=== PATIENT | female | born 1935 | race Caucasian/White ===

== ENCOUNTER → 2017-03-04 08:27 | Outpatient (CLI) | payer MEDICARE ==
[~2017-03-04] VITALS: Ht 162.6 cm; Wt 63.6 kg
--- NOTE | ~2017-03-04 | HEMODYNAMI ---
PATIENT:NATIVIDAD QUEZADA MEDICAL RECORD: [id number] : 35 LOCATION:[facility] ADMISSION DATE: 03/04/17 Generatedon:03/04/201712:31 Patient name: NATIVIDAD QUEZADA Patient #: [id number] SSN: : 1935 Date of study: 03/04/2017 Page: Of Hemodynamic Procedure Report Patient Data Patient Demographics Procedure consent was obtained First Name: NATIVIDAD Gender: Female Last Name: PILAR : 1935 Middle Initial: REYNA Age: 81 year(s) Patient #: [id number] Race: Unknown Additional ID: [id number] Contact details [address]: [address] [place] [address] rd State: [place] City: [place] Zip code: [address] Past Medical History Allergies Allergen Reaction Date Comments Reported Other allergy 03/04/2017 latex Admission Admission Data Admission Date: 03/04/2017 Admission Time: 8:27 Lab Results Lab Result Date: 03/04/2017 Lab Result Time: 9:10 Biochemistry Name Units Result Min Max BUN mg/dl 11 --(-*--)-- 7 18 CK-MB ng/ml 1.1 --(-*--)-- 0 3.6 Creatinine mg/dl 0.9 --(-*--)-- 0.6 1.3 Creatinine l 161 --(--*-)-- 21 215 Kinase Troponin l ng/ml 0.017 --(-*--)-- 0 0.06 CBC Name Units Result Min Max Hematocrit % 38.7 *-(----)-- 42 54 Hemoglobin g/dl 12.1 *-(----)-- 13.5 17.5 Procedure Procedure Types Cath Procedure Diagnostic Procedure LHC LH w/Coronaries PCI Procedure Coronary Stent Initial Miscellaneous Procedures Moderate Sedation up to 15 minutes Procedure Description Procedure Date Procedure Date: 03/04/2017 Procedure Start Time: 12:11 Procedure End Time: 12:30 Procedure Staff Name Function Pipe Adams MD Performing Physician Olivia Martinez RT Scrub Birgit Regan RN Nurse Darion Umanzor RN Political Scientist Andres Norman RT Monitor Procedure Data Cath Procedure Fluoroscopy Diagnostic fluoroscopy Total fluoroscopy Time: 3.6 time: 3.6 min min Diagnostic fluoroscopy Total fluoroscopy dose: 236 dose: 236 mGy mGy Contrast Material Contrast Material Type Amount (ml) Isovue 300 67 Entry Location Entry Primary Successful Side Size Upsize Upsize Entry Closure Krueger ccessful Closure Location (Fr) 1 (Fr) 2 (Fr) Remarks Device Remarks Radial Right 6 Fr Mechanical artery Short Compression Estimated blood loss: 10 ml Diagnostic catheters Device Type Used For End Catheter Placement Diagnostic Terumo 5Fr Procedure Hunter 110cm catheter Procedure Complications No complications Procedure Medications Medication Administration Route Dosage Oxygen NC 2 l/min Lidocaine 2% added to field 20 Heparin Flush Bag added to field 2 bags (1000units/500ml NS) 0.9% NaCl I.V. 100 ml/hr Benadryl I.V. 50 mg Versed I.V. 1 mg Fentanyl I.V. 50 mcg Radial Cocktail I.A. 1 syringe (Verapomil 2mg/Nitro 400mcg/Heparin 1500units) Heparin Bolus I.V. 4000 units Integrilin (Bolus I.V. 5.6 ml 2mg/ml) Plavix P.O. 600 mg Hemodynamics Rest HGB: 12.1 (g/dl) Heart Rate: 93 (bpm) Snapshots Pre Cath Intra NCS Post Cath Vital Signs Time Heart Resp SPO2 etCO2 [id number] NIBP (mmHg) Rhythm Pain Sedatio n Rate (ipm) (%) (mmHg) (mmHg) Status Level (bpm) 12:01:53 80 18 97 0 0 160/93(140) A-Fib 0 (11) 10(A) , No pain 12:06:21 104 16 97 0 0 158/108(138) A-Fib 0 (11) 10(A) , No pain 12:10:16 83 14 96 0 0 138/86(118) A-Fib 0 (11) 10(A) , No pain 12:14:06 73 15 96 0 0 116/78(95) A-Fib 0 (11) 9(A) , No pain 12:18:30 89 14 94 0 0 124/64(84) A-Fib 0 (11) 9(A) , No pain 12:22:24 87 15 94 0 0 117/72(92) NSR 0 (11) 9(A) , No pain 12:26:15 79 15 98 0 0 125/75(117) NSR 0 (11) 10(A) , No pain 12:30:08 98 10 99 0 0 131/73(107) NSR 0 (11) 10(A) , No pain Medications Time Medication Route Dose Verified Delivered Reason Note s Effectiveness by by 12:06:17 Oxygen NC 2 l/min Pipe Buffie used for Angie Regan RN procedure 12:06:25 Lidocaine 2% added 20ml Pipe Pipe for local to vial Angie Adams MD anesthetic field 12:06:31 Heparin Flush added 2 bags Pipe Betancur used for Bag to Angie Adams MD procedure (1000units/500ml field NS) 12:06:42 0.9% NaCl I.V. 100 Pipe Jeongie Per physician ml/hr Angie Regan RN 12:06:52 Benadryl I.V. 50 mg Pipe Genao used for Angie Regan RN procedure 12:09:21 Versed I.V. 1 mg Pipe Genao for sedation Angie Regan RN 12:09:27 Fentanyl I.V. 50 mcg Pipe Jeongie for sedation Angie Regan RN 12:13:19 Radial Cocktail I.A. 1 Pipe Betancur for (Verapomil syringe Angie Adams MD vasodilation 2mg/Nitro 400mcg/Heparin 1500units) 12:16:58 Heparin Bolus I.V. 4000 Pipe Genao for veri fied units Angie Regan RN anticoagulation with dr adams 12:18:26 Integrilin I.V. 5.6 ml Pipe Genao for Wast ed (Bolus 2mg/ml) Angie Regan RN antiplatelet 4.4 ml therapy of vial 12:26:39 Plavix P.O. 600 mg Pipe Genao for Angie Regan RN antiplatelet therapy Procedure Log Time Note 11:49:23 Darion Umanzor RN sent for patient. Start room use. 11:49:24 Time tracking: Regular hours 11:49:28 Plan of Care:Hemodynamics will remain stable., Cardiac rhythm will remain stable., Comfort level will be maintained., Respiratory function will remain adequate., Patient/ family verbilizes understanding of procedure., Procedure tolerated without complication., Recovers from procedure without complications.. 11:51:27 Patient received from Pre/Post Procedure Room to CCL 1 Alert and oriented. Tansferred to table in Supine position. 11:51:28 Warm blankets applied, and cassidy hugger turned on for patient comfort. 11:51:29 Correct patient and procedure confirmed by team. 11:51:32 Signed procedure consent form obtained from patient. 11:51:34 ECG and BP/O2 sat monitors applied to patient. 11:54:05 H&P Date Dictated: 02/07/2017 Within 30 days and on chart., H&P Addendum completed by physician on day of procedure. (MUST COMPLETE FOR ALL OUTPATIENTS). 11:54:07 Pre-procedure instructions explained to patient. 11:54:07 Pre-op teaching completed and patient verbalized understanding. 11:54:10 Family in waiting room. 11:54:12 Patient NPO since Midnight. 12:01:02 Vital chart was started 12:05:23 Baseline sample Acquired. 12:05:34 Rhythm: sinus rhythm 12:06:08 Full Disclosure recording started 12:06:17 Oxygen 2 l/min NC was administered by Birgit Regan RN; used for procedure; 12:06:25 Lidocaine 2% 20ml vial added to field was administered by Pipe Adams MD; for local anesthetic; 12:06:31 Heparin Flush Bag (1000units/500ml NS) 2 bags added to field was administered by Pipe Adams MD; used for procedure; 12:06:33 Patient allergic to Other allergylatex 12:06:37 Is the patient allergic to Iodine/contrast media? No. 12:06:39 Is patient on blood thinner?Yes 12:06:42 0.9% NaCl 100 ml/hr I.V. was administered by Birgit Regan RN; Per physician; 12:06:47 Patient diabetic? No. 12:06:50 Previous problem with sedation/anesthesia? No ? 12:06:51 Snore? Yes 12:06:52 Benadryl 50 mg I.V. was administered by Birgit Regan RN; used for procedure; 12:06:52 Sleep apnea? No 12:06:53 Deviated septum? Yes 12:06:54 Opens mouth fully? Yes 12:06:55 Sticks out tongue? Yes 12:06:56 Airway obstruction? No ] 12:06:58 Dentures? No ? 12:07:00 Modified Ernst's test Ulnar < 7 seconds 12:07:08 Patient pain scale 0/10 ?. 12:07:24 IV patent on arrival in left hand with 0.9% NaCl at [facility]. 12:08:46 Lab Result : BUN 11 mg/dl 12:08:46 Lab Result : Hemoglobin 12.1 g/dl 12:08:46 Lab Result : Creatinine 0.9 mg/dl 12:08:46 Lab Result : Hematocrit 38.7 % 12:08:48 Lab results completed and on chart. 12:08:51 Right Radial & Right Groin area was prepped with chlora-prep and draped in sterile fashion 12:08:52 Alarms reviewed by R. N. 12:08:52 Sharps counted by scrub and verified by R.N. 12:08:56 Use device set Radial Dx 12:08:57 MBrace Wrist Support opened to sterile field. 12:08:57 Acist Manifold opened to sterile field. 12:08:58 Acist Hand Control opened to sterile field. 12:08:59 Acist Syringe opened to sterile field. 12:08:59 Medline Cath Pack opened to sterile field. 12:08:59 Bag Decanter opened to sterile field. 12:09:00 Terumo 6Fr Slender Glidesheath opened to sterile field. 12:09:00 St Dao 260cm J .035 wire opened to sterile field. 12:09:01 Tegaderm 4 x 4 opened to sterile field. 12:09:05 Physician arrived 12:09:05 --------ALL STOP TIME OUT------ 12:09:06 Final Timeout: patient, procedure, and site verified with staff and physician. All members of the team are in agreement. 12:09:07 Right Radial & Right Groin site verified by team. 12:09:11 Physical assessment completed. ASA score P 2 - A patient with mild systemic disease as per Pipe Adams MD. 12:09:14 Sedation plan: IV Moderate Sedation Versed, Fentanyl 12:09:21 Versed 1 mg I.V. was administered by Birgit Regan RN; for sedation; 12:09:27 Fentanyl 50 mcg I.V. was administered by Birgit Regan RN; for sedation; 12:11:14 Procedure started. 12:11:20 Local anesthetic to right radial artery with Lidocaine 2% by Pipe Adams MD.INITIAL ACCESS ONLY 12:13:19 Radial Cocktail (Verapomil 2mg/Nitro 400mcg/Heparin 1500units) 1 syringe I.A. was administered by Pipe Adams MD; for vasodilation; 12:13:35 A 6 Fr Short sheath was inserted into the Right Radial artery 12:13:39 Zero performed for pressure channel P1 12:13:42 Zero performed for pressure channel P1 12:13:46 Zero performed for pressure channel P1 12:13:48 Zero performed for pressure channel P1 12:13:50 Zero performed for pressure channel P1 12:13:54 Zero performed for pressure channel P1 12:14:01 Zero performed for pressure channel P1 12:14:03 Zero performed for pressure channel P1 12:14:28 Zero performed for pressure channel P1 12:15:01 A Diagnostic Fl[employer] 5Fr Hunter 110cm catheter was advanced over the wire and used for Procedure. 12:15:05 LV gram done using CONNELL 12:15:06 Injector settings: Ml/sec: 5, Volume: 15, 12:15:12 EF : 55 % 12:15:14 LCA angiography performed. 12:15:52 RCA angiography performed. 12:16:00 Catheter removed. 12:16:07 Cordis 6FR XBLAD 3.5 guide catheter opened to sterile field. 12:16:08 Pisano Whisper J 300cm 0.014 guide wire opened to sterile field. 12:16:09 Neocase Software BasixCompak Inflation Kit opened to sterile field. 12:16:48 6 Fr xblad 3.5 guide catheter was inserted over the wire 12:16:58 Heparin Bolus 4000 units I.V. was administered by Birgit Regan RN; for anticoagulation; verified with dr adams 12:17:07 Study PCI Site: [place] mLAD has 90% stenosis. 12:17:23 Study PCI Site: [place] pLAD has 90% stenosis. 12:18:26 Integrilin (Bolus 2mg/ml) 5.6 ml I.V. was administered by Birgit Regan RN; for antiplatelet therapy; Wasted 4.4 ml of vial 12:18:35 whisper wire advanced. 12:18:45 Wire advanced across lesion. 12:20:35 Inflation Number: 1 A Biofreedom 2.5 x 18 stent (No Cost Implant) was prepped and advanced across the Mid LAD. The stent was deployed at 13 LORAINE for 0:10 (min:sec). 12:20:54 Inflation number: 1 The stent balloon was then re-inflated across the Prox LAD to 13 LORAINE for 0:10 (min:sec). 12:21:11 Stent catheter was removed intact over wire. 12:22:35 Inflation Number: 2 A Biofreedom 2.5 x 28 stent (No Cost Implant) was prepped and advanced across the Prox LAD. The stent was deployed at 13 LORAINE for 0:10 (min:sec). 12:22:45 Stent catheter was removed intact over wire. 12:22:45 Wire removed. 12:22:46 Guide catheter removed. 12::55 Terumo TR Band Standard opened to sterile field. 12:23:00 Sheath removed intact; hemostasis achieved with Mechanical Compression to the Right Radial artery. 12:23:30 Procedure ended.(Physican Out) 12:25:51 Fluoroscopy time 03.60 minutes. 12:25:55 Fluoroscopy dose: 236 mGy 12:25:55 Flurop Dose total: 236 12::58 Contrast amount:Isovue 300 67ml. 12:26:06 Sharps counted by scrub and verified by R.N. 12:26:09 TR band inflated with 10cc of air. 12:26:10 Insertion/operative site no bleeding no hematoma. 12::39 Plavix 600 mg P.O. was administered by Birgit Regan RN; for antiplatelet therapy; 12:28:21 Post right radial artery:stable, soft, clean and dry 12::23 Post Procedure Pulses reassessed and unchanged 12::28 Post-procedure physical assessment completed. ASA score P 2 - A patient with mild systemic disease as per Pipe Adams MD. 12:28:30 Post procedure rhythm: unchanged. 12:28:32 Estimated blood loss: 10 ml 12::33 Post procedure instruction explained to patient.Patient verbalizes understanding. 12::33 Patient needs reinforcement of post procedure teaching. 12:28:45 Procedure type changed to Cath procedure, Diagnostic procedure, LHC, LHC w/Coronaries, PCI procedure, Coronary Stent Initial, Miscellaneous Procedures, Moderate Sedation up to 15 minutes 12:29:56 Procedure and supply charges have been captured, reviewed, submitted and are correct. 12:29:58 Procedure Complication : No complications 12:30:00 Vital chart was stopped 12:30:01 See physician's report for complete and final results. 12:30:04 Report given to Pre/Post Procedure Room. 12:30:07 Patient transfered to Pre/Post Procedure Room with Stretcher. 12:30:08 Procedure ended. 12:30:08 Full Disclosure recording stopped 12:30:14 End room use (Document Last) 12:30:49 Lab Result : Creatinine Kinase 161 l 12:30:49 Lab Result : CK-MB 1.1 ng/ml 12:30:49 Lab Result : Troponin l 0.017 ng/ml Intervention Summary Intervention Notes Time ActionType Lesion and Equipment Action# Pressure Duration Attributes Used 12:20:35 Place stent Mid LAD Biofreedom 1 13 00:10 2.5 x 18 stent (No Cost Implant) 12:20:54 Reinflate Prox LAD Biofreedom 1 13 00:10 stent 2.5 x 18 balloon stent (No Cost Implant) 12:22:35 Place stent Prox LAD Biofreedom 2 13 00:10 2.5 x 28 stent (No Cost Implant) Device Usage Item Name Manufacture Quantity Catalog Hospital Part Current Minimal Lot# / Number Charge Number Stock Stock Serial# Code [facility] 1 140-0250-00 [id number] 78945 [id number] 5 Wrist Vascular Support Dynamics Acist Acist 1 35336 274228 746986 637954 5 Manifold Medical Systems Inc Acist Hand Acist 1 22488 822051 816660 572177 5 Control Medical Systems Inc Acist Acist 1 81116 894649 851046 870547 20 Syringe Medical Systems Inc Medline Cardinal 1 [id number] 087083 85521 247230 5 Cath Pack Health Bag Microtek 1 2001S 724173 51782 932897 5 DecPolar OLED Inc. Terumo 6Fr Terumo 1 [id number] 750051 357248 126290 [address] Dao St Dao 1 [id number] 592432 602806 891406 30 260cm J .035 wire Tegaderm 4 3M 1 1626W 267415 522523 953084 5 x 4 Diagnostic Terumo 1 40-9931 983205 169902 733256 5 Terumo 5Fr Hunter 110cm catheter Cordis 6FR Cardinal 1 [id number] 616662 631342 412389 10 XBLAD 3.5 Health guide catheter Pisano Pisano 1 [id number] 679434 788551 173832 5 Whisper J Vascular 300cm 0.014 guide wire Merit Merit 1 [id number] 257944 226449 858011 15 Procore Technologies Medical Inflation Kit Biofreedom Biosensors 1 [id number] 856477 913990 5 [id number] 2.5 x 18 [place] SA stent (No Cost Implant) Biofreedom Biosensors 1 [id number] 168057 793038 5 [id number] 2.5 x 28 [place] SA stent (No Cost Implant) Terumo TR Terumo 1 [id number] 365618 560156 795784 40 Band Standard Signature Audit Sherrill Stage Time Signature Unsigned Intra-Procedure 03/04/2017 Andres Norman 12:31:01 PM RT(R) Signatures Monitor : Andres Norman RT Signature : Date : Time : [id number] [place] [address]
[~2017-03-04 08:27] MED LIST: BIOTIN5 MG PO; CELEXA20 MG PO; COUMADIN5 MG PO; FERROUS SULFAT325 MG PO; KLOR-CON 1010 MEQ PO; LEVOXYL50 MCG PO; LISINOPRIL10 MG PO; LOPRESSOR25 MG PO; MAGNESIUM OXID250 MG PO; PLAVIX75 MG PO; TRAZODONE HCL50 MG PO; ULTRAM50 MG PO; ZOVIRAX200 MG PO; ZYRTEC10 MG PO
[2017-03-04 09:00] VITALS: BP 171/105; Ht 162.6 cm; Wt 63.6 kg
[2017-03-04 09:09] LABS: BASOPHILS 0.6 % (0-2); HEMATOCRIT 38.7 % (36.0-48.0); HEMOGLOBIN 12.1 g/dL (12-16); LYMPHOCYTES 29.1 % (15-50); MCH 27.6 pg (26.0-34.0); MCHC 31.3 g/dL (31.0-37.0); MCV 88.2 fL (80.0-100.0); MONOCYTES 10.3 % (2-11); PLATELET COUNT 181 10x3/uL (130-400); RBC 4.39 10x6/uL (4.00-5.40); RDW 21.1 % (11.5-14.5); WBC 4.8 10x3/uL (4.8-10.8)
[2017-03-04 09:36] LABS: INR 1.65 (0.85-1.17); PROTIME 19.5 SECONDS (11.6-15.0)
[2017-03-04 09:43] LABS: CALC OSMOLALITY 279 mosm/kg (275-300); CALCIUM 8.6 mg/dL (8.5-10.1); CARBON DIOXIDE 34.5 mmol/L (21.0-32.0); CHLORIDE - SERUM 102 mmol/L (98-107); CKMB 1.1 U/L (0.0-3.6); CREATINE KINASE 161 UL (21-215); CREATININE - SERUM 0.9 mg/dL (0.6-1.3); GLUCOSE 93 mg/dL (74-106); POTASSIUM - SERUM 3.6 mmol/L (3.5-5.1); SODIUM 141 mmol/L (136-145); UREA NITROGEN 11 mg/dL (7-18); eGFR NON AFRICAN AMERICAN 64 mL/min (90-120)
[2017-03-04 09:47] LABS: TROPONIN-I < 0.017 ng/mL (0.000-0.060)
--- NOTE | 2017-03-04 13:00 | NUR ---
1245 RECEIVED PT FROM ROULETTE DEALER. PT IS ALERT, DENIES ANY C/O PAIN OR NAUSEA. IV PATENT AND INFUSING PER ORDERS. TR BAND TO RIGHT WRIST IS CDI, NO BLEEDING OR HEMATOMA NOTED. WRIST IMMOBILIZER IN PLACE. FRIENDS AT BEDSIDE. PO FLUIDS AND SANDWICH SERVED. PT DENIES NEEDS AT THIS TIME. CALL LIGHT IN REACH.
--- NOTE | 2017-03-04 13:12 | NUR ---
1300 PT MADAN PO FLUIDS AND SANDWICH WIHT NO C/O NAUSEA. TR BAND CDI. VSS, FRIENDS AT BEDSIDE.
--- NOTE | 2017-03-04 13:31 | NUR ---
1330 PT DENIES ANY C/O. TR BAND CDI, NO BLEEDING OR HEMATOMA NOTED AT CATH SITE. FINGERS WARM, CAP REFILL IS BRISK, FRIENDS X 2 AT BEDSIDE. CALL LIGHT IN REACH.
--- NOTE | 2017-03-04 14:10 | NUR ---
1410 TR BAND CDI, NO BLEEDING OR HEMATOMA NOTED. FINGERS WARM TO TOUCH, CAP REFILL IS BRISK. FRIENDS X 2 AT BEDSIDE. PT DENIES NEEDS AT THIS TIME.
--- NOTE | 2017-03-04 14:47 | NUR ---
1445 PT SITTING UP IN BED, VISITING WITH FRIENDS. DENIES ANY C/O. TR BAND CDI, NO BLEEDING OR HEMATOMA NOTED AT SITE. VSS. POST PROCEDURE LAB HAS BEEN DRAWN PER ORDERS.
--- NOTE | 2017-03-04 15:47 | NUR ---
1330 TR BAND DEFLATION BEGUN, 3 CC OF AIR REMOVED WITH NO BLEEDING OR HEMATOMA. POST PROCEDURE EKG OBTAINED PER ORDERS. PT DENIES ANY C/O AT THIS TIME. FRIEND AT BEDSIDE.
--- NOTE | 2017-03-04 17:10 | NUR ---
1615 TR BAND REMOVED AND 2X2, TEGADERM PLACED TO SITE. NO BLEEDING OR HEMATOMA NOTED AT SITE. WRIST IMMOBILIZER IN PLACE. IV DC'D WITH CATH INTACT AND ASSISTED PT WITH DRESSING FOR DC TO HOME. DC INSTRUCTIONS REVIEWED AND PT VERBALIZES UNDERSTANDING. 1630 ASSISTED PT UP TO THE BATHROOM, PT VOIDED QS. STATES SHE THINKS THERE COULD HAVE BEEN BLOOD IN HER URINE, THINKS THERE WAS A PINK COLOR IN TOILET BUT FLUSHED TOILET AND NURSE UNABLE TO ASSESS. PT DENIES BLOOD TO TOILET TISSUE. PT INSTRUCTED TO CONTINUE TO MONITOR THIS AND IF CONTINUES TO CALL DR DUEÑAS'S ON-CALL NUMBER. PT VERBALIZES UNDERSTANDING. PT ESCORTED TO PRIVATE AUTO VIA BY STAFF. DR DUEÑAS NOTIFIED.
== END | disposition home or self-care (01) ==
LOC: D.CATH 08:27
PROVIDERS: Internal Medicine Interventional Cardiology
DX: I49.5 Sick sinus syndrome (principal); R06.02 Shortness of breath; I10 Essential (primary) hypertension; Z95.0 Presence of cardiac pacemaker; Z01.812 Encounter for preprocedural laboratory examination; Z00.6 Encounter for examination for normal comparison and control in clinical research program

== ENCOUNTER → 2017-12-23 08:29 | Outpatient (CLI) | payer MEDICARE ==
[2017-03-04 09:00] VITALS: BMI 24.0
== END | disposition home or self-care (01) ==
LOC: D.RT 08:29
DX: R31.9 Hematuria, unspecified (principal); R06.09 Other forms of dyspnea

== ENCOUNTER 2018-02-10 18:00 | Outpatient (CLI) | payer MEDICARE ==
[2017-03-04 09:00] VITALS: BMI 24.0
== END 2018-02-10 23:59 | disposition home or self-care (01) ==
LOC: D.MAMMO 18:00
DX: R92.8 Other abnormal and inconclusive findings on diagnostic imaging of breast (principal)

== ENCOUNTER 2018-03-09 11:27 | Inpatient (IN) | payer MEDICARE ==
[~2018-03-09] VITALS: Ht 162.6 cm; Wt 55.0 kg
[2018-03-09] VITALS (7 sets, daily range): BP systolic 80–164; BP diastolic 53–97; Ht 162.6 cm; Wt 55.0 kg
[2018-03-09] MEDS ORDERED: AMBIEN10 MG PO (12:35)
[2018-03-09] MEDS ORDERED: FERROUS SULFAT325 MG PO (12:36)
[2018-03-09] MEDS ORDERED: BIOTIN5 MG PO (12:36)
[2018-03-09] MEDS ORDERED: GLUCOSAMINE HC500 MG PO (12:37)
[2018-03-09] MEDS ORDERED: MAGNESIUM OXID250 MG PO (12:37)
[2018-03-09] MEDS ORDERED: VITAMIN B-12250 MC3 PO (12:37)
[2018-03-09] MEDS ORDERED: ZYRTEC10 MG PO (12:38)
[2018-03-09] MEDS ORDERED: VITAMIN D31000 UNIT PO (12:38)
[2018-03-09] MEDS ORDERED: SYSTANE 0.3-0.4%5 ML EACH EYE (12:39)
[2018-03-09 13:02] LABS: ALBUMIN 3.1 g/dL (3.4-5.0); ALKALINE PHOSPHATASE 83 U/L (46-116); ALT (SGPT) 27 U/L (10-68); CALC OSMOLALITY 288 mosm/kg (275-300); CALCIUM 8.3 mg/dL (8.5-10.1); CARBON DIOXIDE 30.2 mmol/L (21.0-32.0); CHLORIDE - SERUM 100 mmol/L (98-107); CREATININE - SERUM 1.4 mg/dL (0.6-1.3); GLUCOSE 154 mg/dL (74-106); POTASSIUM - SERUM 3.3 mmol/L (3.5-5.1); PROTEIN - SERUM 6.8 g/dL (6.4-8.2); SODIUM 141 mmol/L (136-145); UREA NITROGEN 27 mg/dL (7-18); eGFR NON AFRICAN AMERICAN 38 mL/min (90-120)
[2018-03-09 13:16] LABS: BASOPHILS 0.7 % (0-2); EOSINOPHILS 2.9 % (0-7); HEMOGLOBIN 13.9 g/dL (12-16); IMMATURE GRANULOCYTES 0.2 % (0-5); LYMPHOCYTES 17.3 % (15-50); MCH 30.8 pg (26.0-34.0); MCHC 33.1 g/dL (31.0-37.0); MCV 93.1 fL (80.0-100.0); MEAN PLATELET VOLUME 10.4 fL (7.4-10.4); NEUTROPHILS 70.9 % (40-80); PLATELET COUNT 207 10x3/uL (130-400); RBC 4.51 10x6/uL (4.00-5.40); RDW 15.8 % (11.5-14.5); WBC 6.1 10x3/uL (4.8-10.8)
[2018-03-09 13:19] LABS: MAGNESIUM - SERUM 1.4 mg/dL (1.8-2.4); PRO BNP 25392 pg/mL (0-450); THYROID STIMULATING HORMONE 3.96 uIU/mL (0.36-3.74); TROPONIN-I 0.049 ng/mL (0.000-0.060)
[2018-03-09 16:12] LABS: PROTIME 96.6 SECONDS (11.6-15.0)
[2018-03-09 16:13] LABS: INR 13.03 (0.85-1.17)
[2018-03-09 22:04] LABS: APPEARANCE TURBID (CLEAR); COLOR RED (YELLOW)
[2018-03-09 22:06] LABS: BILIRUBIN NEGATIVE (NEGATIVE); GLUCOSE 50 mg/dL (NEGATIVE); KETONE NEGATIVE (NEGATIVE); NITRITE NEGATIVE (NEGATIVE); PROTEIN 1+ mg/dL (NEGATIVE); SPECIFIC GRAVITY 1.015 (1.005-1.020); UROBILINOGEN NORMAL (NORMAL)
[2018-03-09 22:10] LABS: BACTERIA MANY /hpf (NONE SEEN); EPITHELIAL CELLS 0-5 /hpf (0-5); RED CELLS - URINE >50 /hpf (0-5)
[2018-03-10 02:11] VITALS: BP 129/77
[2018-03-10 05:58] LABS: BASOPHILS 0.6 % (0-2); EOSINOPHILS 4.2 % (0-7); HEMATOCRIT 41.9 % (36.0-48.0); HEMOGLOBIN 13.5 g/dL (12-16); LYMPHOCYTES 25.2 % (15-50); MCH 30.4 pg (26.0-34.0); MCHC 32.2 g/dL (31.0-37.0); MCV 94.4 fL (80.0-100.0); MEAN PLATELET VOLUME 10.2 fL (7.4-10.4); RBC 4.44 10x6/uL (4.00-5.40); RDW 15.7 % (11.5-14.5); WBC 7.1 10x3/uL (4.8-10.8)
[2018-03-10 06:15] LABS: PLATELET COUNT 161 10x3/uL (130-400)
[2018-03-10 06:28] VITALS: BP 145/68
[2018-03-10 06:29] LABS: INR 3.74 (0.85-1.17); PROTIME 36.2 SECONDS (11.6-15.0)
[2018-03-10 08:03] VITALS: BP 154/82
[2018-03-10 08:10] LABS: ALBUMIN 2.6 g/dL (3.4-5.0); ANION GAP 7.4 mmol/L (8-16); BILIRUBIN - TOTAL 1.89 mg/dL (0.2-1.3); CALCIUM 7.7 mg/dL (8.5-10.1); CARBON DIOXIDE 33.8 mmol/L (21.0-32.0); CREATININE - SERUM 0.8 mg/dL (0.6-1.3); MAGNESIUM - SERUM 1.3 mg/dL (1.8-2.4); PHOSPHOROUS 2.5 mg/dL (2.5-4.9); POTASSIUM - SERUM 3.2 mmol/L (3.5-5.1); PROTEIN - SERUM 5.8 g/dL (6.4-8.2)
[2018-03-10] MEDS ORDERED: BETAPACE 80 MG80 MG PO (08:44)
[2018-03-10] MEDS ORDERED: LASIX40 MG PO (08:45)
== END 2018-03-10 10:57 | disposition home or self-care (01) | DRG 309 ==
LOC: D.ER 11:27 → D.M2 13:49 → D.EDHOLD 13:49 → D.M2 14:32
PROVIDERS: Family Medicine; Internal Medicine Interventional Cardiology
DX: I48.91 Unspecified atrial fibrillation (principal); N39.0 Urinary tract infection, site not specified; I25.110 Atherosclerotic heart disease of native coronary artery with unstable angina pectoris; T45.515A Adverse effect of anticoagulants, initial encounter; E03.9 Hypothyroidism, unspecified; I11.0 Hypertensive heart disease with heart failure; I50.9 Heart failure, unspecified; I42.9 Cardiomyopathy, unspecified; Z95.0 Presence of cardiac pacemaker

== ENCOUNTER 2018-03-15 08:37 | Outpatient (CLI) | payer MEDICARE ==
[~2018-03-15] VITALS: Ht 162.6 cm; Wt 53.2 kg
--- NOTE | ~2018-03-15 | HEMODYNAMI ---
PATIENT:NATIVIDAD QUEZADA MEDICAL RECORD: [id number] : 35 LOCATION:D.CAT ADMISSION DATE: 03/15/18 Generatedon:03/15/201811:41 Patient name: NATIVIDAD QUEZADA Patient #: [id number] SSN: : 1935 Date of study: 03/15/2018 Page: Of Hemodynamic Procedure Report Patient Data Patient Demographics Procedure consent was obtained First Name: NATIVIDAD Gender: Female Last Name: PILAR : 1935 Middle Initial: REYNA Age: 82 year(s) Patient #: [id number] Race: Unknown Additional ID: [id number] Contact details [address]: [address] [place] [address] rd State: [place] City: [place] Zip code: [address] Past Medical History Allergies Allergen Reaction Date Comments Reported Other allergy 03/04/2017 latex Admission Admission Data Admission Date: 03/15/2018 Admission Time: 8:37 Height (in.): 65 BSA: 1.59 (m2) Height (cm.): 165.1 BMI: 19.97 (kg/m2) Weight (lbs.): 120 Weight (kg.): 54.43 Procedure Procedure Types Cath Procedure Diagnostic Procedure C [facility] w/Coronaries FFR/IVUS Intra-Coronary IVUS Initial PCI Procedure Coronary Stent Coronary Stent Initial x2 Procedure Description Procedure Date Procedure Date: 03/15/2018 Procedure Start Time: 11:19 Procedure End Time: 11:36 Procedure Staff Name Function Pipe Adams MD Performing Physician An Sierra RT Monitor Birgit Regan RN Nurse Joselyn Eli RT Scrub Procedure Data Cath Procedure Fluoroscopy Diagnostic fluoroscopy Total fluoroscopy Time: 4.7 time: 4.7 min min Diagnostic fluoroscopy Total fluoroscopy dose: 4.7 dose: 4.7 mGy mGy Contrast Material Contrast Material Type Amount (ml) Isovue 300 110 Entry Location Entry Primary Successful Side Size Upsize Upsize Entry Closure Krueger ccessful Closure Location (Fr) 1 (Fr) 2 (Fr) Remarks Device Remarks Radial Right 6 Fr Mechanical TR artery Short Compression Estimated blood loss: 10 ml Diagnostic catheters Device Type Used For End Catheter Placement DIAGNOSTIC [place] 110cm 5 Procedure Fr catheter ([id number]) Procedure Complications No complications Procedure Medications Medication Administration Route Dosage Oxygen etCO2 Nasal cannula 2 l/min Lidocaine 2% added to field 20 Heparin Flush Bag added to field 2 bags (1000units/500ml NS) 0.9% NaCl I.V. 100 ml/hr Lopressor I.V. 5 mg Radial Cocktail I.A. 1 syringe (Verapomil 2mg/Nitro 400mcg/Heparin 1500units) Versed I.V. 1 mg Fentanyl I.V. 50 mcg Lopressor I.V. 5 mg Heparin Bolus I.V. 4000 units Integrilin (Bolus I.V. 4.5 ml 2mg/ml) Versed I.V. 1 mg Fentanyl I.V. 50 mcg Versed I.V. 0.5 mg Plavix P.O. 600 mg Hemodynamics Rest BSA: 1.59 (m2) O2 Consumption: Estimated: 216.24 (ml/min) O2 Consumption indexed : Estimated:136 (ml/min/m) Heart Rate: 0 (bpm) Snapshots Pre Cath Intra NCS Post Cath Vital Signs Time Heart Resp SPO2 etCO2 NIBP (mmHg) Rhythm Pain Sedation Rate (ipm) (%) (mmHg) Status Level (bpm) 10:51:49 85 22 94 0 132/83(114) NSR 0 (11) 10(A) , No pain 10:55:53 85 45 94 23.2 139/91(123) NSR 0 (11) 10(A) , No pain 11:00:01 108 17 99 35.9 129/87(109) NSR 0 (11) 10(A) , No pain 11:04:09 117 15 95 34.4 115/81(99) NSR 0 (11) 10(A) , No pain 11:08:11 118 14 94 20.2 130/81(107) NSR 0 (11) 10(A) , No pain 11:12:20 116 14 96 8.2 120/71(100) NSR 0 (11) 10(A) , No pain 11:16:26 117 15 94 12.7 121/76(95) NSR 0 (11) 10(A) , No pain 11:21:19 99 17 99 41.9 134/79(89) NSR 0 (11) 9(A) , No pain 11:25:33 85 21 98 38.9 121/63(99) NSR 0 (11) 9(A) , No pain 11:29:39 78 15 99 41.2 112/77(91) NSR 0 (11) 9(A) , No pain 11:33:43 68 20 98 44.2 126/73(95) NSR 0 (11) 9(A) , No pain 11:40:02 72 16 100 41.9 136/90(100) NSR 0 (11) 10(A) , No pain Medications Time Medication Route Dose Verified Delivered Reason Not es Effectiveness by by 10:57:51 Oxygen etCO2 2 l/min Pipe Genao used for Nasal Angie Regan RN procedure cannula 10:57:57 Lidocaine 2% added 20ml Pipe Betancur for local to vial Angie Adams MD anesthetic field 10:58:02 Heparin Flush added 2 bags Pipe Betancur used for Bag to Angie Adams MD procedure (1000units/500ml field NS) 10:59:08 0.9% NaCl I.V. 100 Pipe Genao Per physician ml/hr Angie Regan RN 11:16:38 Versed I.V. 1 mg Pipe Genao for sedation Angie Regan RN 11:16:44 Fentanyl I.V. 50 mcg Pipe Genao for sedation Angie Regan RN 11:19:30 Lopressor I.V. 5 mg Pipe Genao Per physician Angie Regan RN 11:20:57 Radial Cocktail I.A. 1 Pipe Betancur for (Verapomil syringe Angie Adams MD vasodilation 2mg/Nitro 400mcg/Heparin 1500units) 11:22:50 Lopressor I.V. 5 mg Pipe Genao Per physician Angie Regan RN 11:24:41 Heparin Bolus I.V. 4000 Pipe Genao for delroy ified units Angie Regan RN anticoagulation with dr adams 11:26:40 Integrilin I.V. 4.5 ml Pipe Genao for was dorothy (Bolus 2mg/ml) Angie Regan RN antiplatelet 5.5 ml therapy of vial 11:27:36 Versed I.V. 1 mg Pipe Genao for sedation Angie Regan RN 11:27:40 Fentanyl I.V. 50 mcg Pipe Genao for sedation Angie Regan RN 11:32:15 Versed I.V. 0.5 mg Pipe Genao for sedation Angie Regan RN 11:39:18 Plavix P.O. 600 mg Pipe Genao for Angie Regan RN antiplatelet therapy Procedure Log Time Note 10:41:57 Patient Height : 65 inches 10:42:00 Patient Weight : 120 lbs 10:42:35 Diagnostic Cath status Elective 10:42:38 Birgit Regan RN sent for patient. Start room use. 10:42:39 Time tracking: Regular hours (M-F 7:00 - 5:00) 10:42:45 Plan of Care:Hemodynamics will remain stable., Cardiac rhythm will remain stable., Comfort level will be maintained., Respiratory function will remain adequate., Patient/ family verbilizes understanding of procedure., Procedure tolerated without complication., Recovers from procedure without complications.. 10:42:53 Patient received from Pre/Post Procedure Room to CCL 2 Alert and oriented. Tansferred to table in Supine position. 10:42:54 Warm blankets applied, and cassidy hugger turned on for patient comfort. 10:42:56 Correct patient and procedure confirmed by team. 10:42:58 Signed procedure consent form obtained from patient. 10:43:15 Snore? Yes 10:43:18 Sleep apnea? No 10:43:34 Dentures? No ? 10:43:42 Is patient on blood thinner?Yes 10:44:03 coumadin 1week ago 10:44:07 Patient diabetic? No. 10:50:37 ECG and BP/O2 sat monitors applied to patient. 10:50:40 Vital chart was started 10:50:42 Baseline sample Acquired. 10:50:45 Full Disclosure recording started 10:50:58 H&P Date Dictated: 03/14/2018 Within 30 days and on chart., H&P Addendum completed by physician on day of procedure. (MUST COMPLETE FOR ALL OUTPATIENTS). 10:51:01 Family in waiting room. 10:51:02 Patient NPO since Midnight. 10:51:19 Is the patient allergic to Iodine/contrast media? No. 10:51:20 Was the patient premedicated? Yes 10:51:26 Patient pain scale 0/10 ?. 10:51:33 IV patent on arrival in left forearm with 0.9% NaCl at [facility]. 10:57:03 Lab results completed and on chart. 10:57:08 Right Radial & Right Groin area was prepped with chlora-prep and draped in sterile fashion 10:57:10 Alarms reviewed by R. N. 10:57:10 Sharps counted by scrub and verified by R.N. 10:57:12 Physician paged 10:57:51 Oxygen 2 l/min etCO2 Nasal cannula was administered by Birgit Regan RN; used for procedure; 10:57:57 Lidocaine 2% 20ml vial added to field was administered by Pipe Adams MD; for local anesthetic; 10:58:02 Heparin Flush Bag (1000units/500ml NS) 2 bags added to field was administered by Pipe Adams MD; used for procedure; 10:59:08 0.9% NaCl 100 ml/hr I.V. was administered by Birgit Regan RN; Per physician; 11:04:58 Zero performed for pressure channel P1 11:05:01 Zero performed for pressure channel P1 11:12:39 Physician arrived 11:14:06 --------ALL STOP TIME OUT------ 11:14:07 Final Timeout: patient, procedure, and site verified with staff and physician. All members of the team are in agreement. 11:14:11 Right Radial & Right Groin site verified by team. 11:14:15 Physical assessment completed. ASA score P 2 - A patient with mild systemic disease as per Pipe Adams MD. 11:14:20 Sedation plan: IV Moderate Sedation Medication:Versed, Fentanyl 11:16:38 Versed 1 mg I.V. was administered by Birgit Regan RN; for sedation; 11:16:44 Fentanyl 50 mcg I.V. was administered by Birgit Regan RN; for sedation; 11:18:46 Use device set Radial Dx or PCI 11:18:47 ACIST Syringe (74490) opened to sterile field. 11:18:48 Medline Cath Pack ([id number]) opened to sterile field. 11:18:48 Bag Decanter (2002) opened to sterile field. 11:18:49 DIAGNOSTIC WIRE .035 260cm J wire (341985) opened to sterile field. 11:18:49 ACIST Hand Control (34382) opened to sterile field. 11:18:50 ACIST Manifold (58800) opened to sterile field. 11:18:50 Tegaderm 4 x 4 (1626W) opened to sterile field. 11:18:52 MBrace Wrist Support (084732206) opened to sterile field. 11:18:52 NEEDLE Cook 21G 4cm Radial (Q82376) opened to sterile field. 11:18:59 SHEATH 6Fr Prelude Radial ([id number]) opened to sterile field. 11:19:02 Procedure started. 11:19:15 Local anesthetic to right radial artery with Lidocaine 2% by Pipe Adams MD.INITIAL ACCESS ONLY 11:19:30 Lopressor 5 mg I.V. was administered by Birgit Regan RN; Per physician; 11:19:32 A 6 Fr Short sheath was inserted into the Right Radial artery 11:20:32 A DIAGNOSTIC [place] 110cm 5 Fr catheter (781137) was advanced over the wire and used for Procedure. 11:20:39 LV angiography performed. 11:20:57 Radial Cocktail (Verapomil 2mg/Nitro 400mcg/Heparin 1500units) 1 syringe I.A. was administered by Pipe Adams MD; for vasodilation; 11:21:28 EF : 35 % 11:21:31 LCA angiography performed. 11:22:50 Lopressor 5 mg I.V. was administered by Birgit Regan RN; Per physician; 11:23:04 RCA angiography performed. 11:23:06 Catheter removed. 11:24:21 INFLATOR Merit BasixCompak (PP8905) opened to sterile field. 11:24:21 CHOICE PT Extra Support 182cm wire ([id number]) opened to sterile field. 11:24:27 Proceeding to intervention. 11:24:41 Heparin Bolus 4000 units I.V. was administered by Birgit Regan RN; for anticoagulation; verified with dr adams 11:25:11 [place] IVUS Catheter (26034H) opened to sterile field. 11:25:59 GUIDE 6FR XBLAD 3.5 catheter (16682130) opened to sterile field. 11:26:16 choice pt ex wire advanced. 11:26:18 Wire advanced across lesion. 11:26:25 IVUS catheter advanced over wire. 11::40 Integrilin (Bolus 2mg/ml) 4.5 ml I.V. was administered by Birgit Regan RN; for antiplatelet therapy; wasted 5.5 ml of vial 11:27:36 Versed 1 mg I.V. was administered by Birgit Regan RN; for sedation; 11::40 Fentanyl 50 mcg I.V. was administered by Birgit Regan RN; for sedation; 11:30:22 Place stent Inflation Number: 1 A INTEGRITY RX 3.5 x 18 stent ([id number]) was prepped and advanced across the Mid CX. The stent was deployed at 11 LORAINE for 0:05 (min:sec). 11:31:01 IVUS catheter removed over wire. 11:32:15 Versed 0.5 mg I.V. was administered by Birgit Regan RN; for sedation; 11:33:16 Place stent Inflation Number: 1 A INTEGRITY RX 2.25 x 12 stent ([id number]) was prepped and advanced across the Dist LAD. The stent was deployed at 11 LORAINE for 0:05 (min:sec). 11:33:23 TR BAND Standard ([id number]) opened to sterile field. 11:33:34 Wire removed. 11:33:35 Guide catheter removed. 11:33:49 Sheath removed intact; hemostasis achieved with Mechanical Compression to the Right Radial artery. 11:33:52 Procedure ended.(Physican Out) 11:34:12 Fluoroscopy time 04.70 minutes. 11:34:29 Fluoroscopy dose: 4.7 mGy 11:34:29 Flurop Dose total: 4.7 11:34:38 Contrast amount:Isovue 300 110ml. 11:34:41 Sharps counted by scrub and verified by R.N. 11:34:43 TR band inflated with 10cc of air. 11:34:46 Insertion/operative site no bleeding no hematoma. 11:34:50 Post-op/insertion site Right Radial artery dressed using a 4 x 4 and Tegaderm. 11:34:52 Post Procedure Pulses reassessed and unchanged 11:35:01 Post-procedure physical assessment completed. ASA score P 2 - A patient with mild systemic disease as per Pipe Adams MD. 11:35:06 Post procedure rhythm: unchanged. 11:35:09 Estimated blood loss: 10 ml 11:35:11 Post procedure instruction explained to patient.Patient verbalizes understanding. 11:35:17 Patient needs reinforcement of post procedure teaching. 11:35:46 Procedure type changed to Cath procedure, Diagnostic procedure, LHC, C w/Coronaries, FFR/IVUS, Intra-Coronary IVUS Initial, PCI procedure, Coronary Stent, Coronary Stent Initial x2 11:35:48 Procedure and supply charges have been captured, reviewed, submitted and are correct. 11:36:07 Procedure Complication : No complications 11:36:10 Vital chart was stopped 11:36:10 See physician's report for complete and final results. 11:36:12 Report given to Pre/Post Procedure Room. 11:36:15 Patient transfered to Pre/Post Procedure Room with Stretcher. 11:36:18 Procedure ended. 11:36:18 Full Disclosure recording stopped 11:36:21 End room use (Document Last) 11:36:47 ACC-PCI Only Patient was given prescriptions, or instructed by Pipe Adams MD to start/continue the following medications upon discharge: Plavix 11:39:18 Plavix 600 mg P.O. was administered by Birgit Regan RN; for antiplatelet therapy; Intervention Summary Intervention Notes Time ActionType Lesion and Equipment Action# Pressure Duration Attributes Used 11:30:22 Place stent Mid CX INTEGRITY RX 1 11 00:05 3.5 x 18 stent ([id number]) 11:33:16 Place stent Dist LAD INTEGRITY RX 1 11 00:05 2.25 x 12 stent ([id number]) Device Usage Item Name Manufacture Quantity Catalog Number Hospital Part Current M inimal Lot# / Charge Number Stock Stock Serial# Code ACIST Syringe Acist 1 96387 [id number] 097233 616820 2 0 (21969) Medical Systems Inc Medline Cath Cardinal 1 [id number] 944236 55572 844708 5 Pack Health ([id number]) Bag Decanter Microtek 1 882699 31296 747749 5 () Medical Inc. DIAGNOSTIC WIRE St Dao 1 276036 345876 354755 080228 3 0 .035 260cm J wire (773340) ACIST Hand Acist 1 87846 229033 362012 156824 5 Control (89536) Medical Systems Inc ACIST Manifold Acist 1 10795 534586 978088 206869 5 (78610) Medical Systems Inc Tegaderm 4 x 4 3M 1 1626W 074995 584418 741245 5 (1626W) MBrace Wrist Advanced 1 140-0250-00 924998 29147 029856 5 Support Vascular ([id number]) Dynamics NEEDLE Cook 21G Cook Medical 1 J92823 420386 880315 389440 5 4cm Radial (V80435) SHEATH 6Fr Merit 1 [id number] 475338 918105 378860 5 Prelude Radial Medical ([id number]) DIAGNOSTIC Terumo 1 40-7567 907202 101531 863488 5 [place] 110cm 5 Fr catheter (005806) INFLATOR Merit Merit 1 OL6529 280231 927155 977368 1 5 Caviar Medical (YF8066) CHOICE PT Extra [place] 1 [id number] 556309 555972 551413 5 Support 182cm Scientific wire ([id number]) [place] 1 07495U 687993 710487 390733 8 [place] IVUS Catheter (32624A) GUIDE 6FR XBLAD Cardinal 1 [id number] 406050 557487 187538 1 0 3.5 catheter Health (58771060) INTEGRITY RX Medtronic 1 [id number] 566145 123094 370067 5 [id number] 3.5 x 18 stent ([id number]) INTEGRITY RX Medtronic 1 [id number] 351159 234639 561669 5 [id number] 2.25 x 12 stent ([id number]) TR BAND Terumo 1 [id number] 762104 939092 488445 4 0 Standard (GLQ14BUM) Signature Audit [place] Stage Time Signature Unsigned Intra-Procedure 03/15/2018 An Sierra 11:41:09 AM RT(R) Signatures Monitor : An Sierra Signature : RT Date : Time : [facility] [address] [place] [address]
--- NOTE | ~2018-03-15 | OP ---
PATIENT NAME: NATIVIDAD QUEZADA MEDICAL RECORD: [id number] :35 LOCATION:D.CAT ADMISSION DATE: SURGEON: SUMEET DUEÑAS MD DATE OF OPERATION: 03/15/2018 PROCEDURES: 1. PTCA stent LAD. 2. PTCA stent left circumflex. 3. Left heart catheterization. 4. Selective coronary angiography. 5. Left ventriculogram. 6. Intravascular ultrasound. INDICATION: Angina and coronary artery disease. PROCEDURE IN DETAIL: After informed consent was obtained and after a detailed description of risks, benefits as well as alternative therapies, the patient elected to proceed with angiogram and angioplasty. The right radial area was prepped and draped in normal sterile fashion. Right radial artery was cannulated via modified Seldinger technique with placement of 6-Indonesian sheath. All catheters exchanged through this sheath. FINDINGS: The left ventriculogram was performed in a standard 30-degree CONNELL view, reveals global hypokinesis throughout all segments. Overall ejection fraction estimated 35%. SELECTIVE CORONARY ANGIOGRAPHY: 1. Left main is with no significant angiographic disease. 2. Left anterior descending has previously placed stents, these are widely patent with no significant restenosis. There is, however, 80% stenosis after the previously placed stents. 3. The left circumflex has greater than 80% stenosis confirmed by intravascular ultrasound. 4. The right coronary artery has a large PDA that has 80% stenosis throughout. COLLECTIONS ANALYST STENT OF THE LAD AND CIRCUMFLEX: The LAD was addressed with a 2.25 x 12 mm Integrity, the circumflex with a 3.5 x 18 mm Integrity. Result was 0% residual stenosis. OVERALL IMPRESSION: Successful PTCA stent of the LAD and circumflex, both going from 80% initial stenosis to 0% residual stenosis. PLAN: PTCA stent of the RCA PDA in the near future. TRANSINT:[id number] Voice Confirmation ID: [id number] DOCUMENT ID: [id number] SUMEET DUEÑAS MD at 1752 CC: [id number] DICTATION DATE: 03/15/18 1139 COMPENSATION AND BENEFITS MANAGER: 03/15/18 1238 DEP CLI 03/15/18 [place] [address]
[~2018-03-15 08:37] MED LIST changes: +AMBIEN10 MG PO; +BETAPACE 80 MG80 MG PO; +GLUCOSAMINE HC500 MG PO; +LASIX40 MG PO; +SYSTANE 0.3-0.4%5 ML EACH EYE; +VITAMIN B-12250 MC3 PO; +VITAMIN D31000 UNIT PO
[2018-03-15 09:17] VITALS: BP 135/84; Ht 162.6 cm; Wt 53.2 kg
[2018-03-15 09:29] LABS: BASOPHILS 0.5 % (0-2); EOSINOPHILS 9.9 % (0-7); HEMOGLOBIN 13.8 g/dL (12-16); IMMATURE GRANULOCYTES 0.2 % (0-5); LYMPHOCYTES 20.5 % (15-50); MCH 31.1 pg (26.0-34.0); MCHC 32.9 g/dL (31.0-37.0); MCV 94.6 fL (80.0-100.0); MEAN PLATELET VOLUME 10.9 fL (7.4-10.4); MONOCYTES 11.4 % (2-11); NEUTROPHILS 57.5 % (40-80); PLATELET COUNT 192 10x3/uL (130-400); RBC 4.44 10x6/uL (4.00-5.40); RDW 15.5 % (11.5-14.5); WBC 5.6 10x3/uL (4.8-10.8)
[2018-03-15 09:49] LABS: ANION GAP 7.5 mmol/L (8-16); CALCIUM 8.9 mg/dL (8.5-10.1); CARBON DIOXIDE 35.9 mmol/L (21.0-32.0); CREATININE - SERUM 0.8 mg/dL (0.6-1.3); POTASSIUM - SERUM 3.4 mmol/L (3.5-5.1)
[2018-03-15] MEDS ORDERED: PLAVIX75 MG PO (12:13)
== END 2018-03-15 15:35 | disposition home or self-care (01) ==
LOC: D.CATH 08:37
PROVIDERS: Internal Medicine Interventional Cardiology
DX: I25.119 Atherosclerotic heart disease of native coronary artery with unspecified angina pectoris (principal); Z95.5 Presence of coronary angioplasty implant and graft; Z01.812 Encounter for preprocedural laboratory examination

== ENCOUNTER → 2018-03-17 09:44 | Outpatient (CLI) | payer MEDICARE ==
[~2018-03-17] VITALS: Ht 162.6 cm; Wt 51.4 kg
--- NOTE | ~2018-03-17 | HEMODYNAMI ---
PATIENT:NATIVIDAD QUEZADA MEDICAL RECORD: [id number] : 35 LOCATION:DUgoCAT ADMISSION DATE: 03/17/18 Generatedon:03/17/201813:07 Patient name: NATIVIDAD QUEZADA Patient #: [id number] SSN: : 1935 Date of study: 03/17/2018 Page: Of Hemodynamic Procedure Report Patient Data Patient Demographics Procedure consent was obtained First Name: NATIVIDAD Gender: Female Last Name: PILAR : 1935 Middle Initial: REYNA Age: 82 year(s) Patient #: [id number] Race: Unknown Additional ID: [id number] Contact details [address]: [address] [place] [address] rd State: [place] City: [place] Zip code: [address] Past Medical History Allergies Allergen Reaction Date Comments Reported Other allergy 03/04/2017 latex Admission Admission Data Admission Date: 03/17/2018 Admission Time: 9:44 Procedure Procedure Types Cath Procedure PCI Procedure Coronary Stent Coronary Stent Initial Procedure Description Procedure Date Procedure Date: 03/17/2018 Procedure Start Time: 12:58 Procedure End Time: 13:04 Procedure Staff Name Function Pipe Adams MD Performing Physician Joselyn Eli RT Monitor An Sierra RT Scrub Darion Umanzor RN Nurse Procedure Data Cath Procedure Fluoroscopy Diagnostic fluoroscopy Total fluoroscopy Time: 1.9 time: 1.9 min min Diagnostic fluoroscopy Total fluoroscopy dose: 236 dose: 236 mGy mGy Contrast Material Contrast Material Type Amount (ml) Isovue 300 44 Entry Location Entry Primary Successful Side Size Upsize Upsize Entry Closure Succes sful Closure Location (Fr) 1 (Fr) 2 (Fr) Remarks Device Remarks Femoral Right 6 Fr Exoseal artery Short Estimated blood loss: 5 ml Procedure Complications No complications Procedure Medications Medication Administration Route Dosage Oxygen etCO2 Nasal cannula 2 l/min Heparin Flush Bag added to field 2 bags (1000units/500ml NS) 0.9% NaCl I.V. 100 ml/hr Fentanyl I.V. 50 mcg Versed I.V. 1 mg Heparin Bolus I.V. 4000 units Fentanyl I.V. 25 mcg Versed I.V. 0.5 mg Hemodynamics Rest Heart Rate: 96 (bpm) Snapshots Pre Cath Intra NCS Post Cath Vital Signs Time Heart Resp SPO2 etCO2 NIBP (mmHg) Rhythm Pain Sedation Rate (ipm) (%) (mmHg) Status Level (bpm) 12:45:09 103 18 99 36.8 155/118(135) NSR 0 (11) 10(A) , No pain 12:49:17 94 17 100 36 159/113(140) NSR 0 (11) 10(A) , No pain 12:53:31 109 16 99 18 133/80(105) NSR 0 (11) 10(A) , No pain 12:57:31 104 15 99 27.7 132/97(114) NSR 0 (11) 9(A) , No pain 13:01:37 85 16 98 19.5 121/78(100) NSR 0 (11) 9(A) , No pain 13:05:24 88 17 98 21 118/73(101) NSR 0 (11) 9(A) , No pain Medications Time Medication Route Dose Verified Delivered Reason Notes Effectiveness by by 12:44:23 Oxygen etCO2 2 Pipe Orlando Per physician Nasal l/min Angie Umanzor RN cannula 12:44:34 Heparin Flush added 2 Pipe Orlando used for Bag to bags Angie Umanzor RN procedure (1000units/500ml field NS) 12:44:43 0.9% NaCl I.V. 100 Pipe Orlando Per physician ml/hr Angie Umanzor RN 12:54:10 Fentanyl I.V. 50 Pipe Orlando for sedation mcg Angie Umanzor RN 12:54:16 Versed I.V. 1 mg Piep Orlando for sedation Angie Umanzor RN 12:58:59 Heparin Bolus I.V. 4000 Pipe Orlando for units Angie Umanzor RN anticoagulation 12:59:05 Fentanyl I.V. 25 Pipe Orlando for sedation mcg Angie Umanzor RN 12:59:10 Versed I.V. 0.5 Pipe Orlando for sedation mg Angie Umanzor RN Procedure Log Time Note 12:20:44 An Sierra RT(R) sent for patient. Start room use. 12:28:09 Diagnostic Cath Status : Elective 12:28:45 Time tracking: Regular hours (M-F 7:00 - 5:00) 12:28:50 Plan of Care:Hemodynamics will remain stable., Cardiac rhythm will remain stable., Comfort level will be maintained., Respiratory function will remain adequate., Patient/ family verbilizes understanding of procedure., Procedure tolerated without complication., Recovers from procedure without complications.. 12:32:40 Patient received from Pre/Post Procedure Room to CCL 2 Alert and oriented. Tansferred to table in Supine position. 12:32:41 Warm blankets applied, and cassidy hugger turned on for patient comfort. 12:32:42 Correct patient and procedure confirmed by team. 12:32:43 Signed procedure consent form obtained from patient. 12:32:44 ECG and BP/O2 sat monitors applied to patient. 12:37:05 Baseline sample Acquired. 12:37:08 Rhythm: sinus rhythm 12:37:10 Full Disclosure recording started 12:37:17 H&P Date Dictated: 03/17/2018 New H&P dictated by physician.. 12:37:18 Pre-procedure instructions explained to patient. 12:37:19 Pre-op teaching completed and patient verbalized understanding. 12:37:22 Family in waiting room. 12:37:23 Patient NPO since Midnight. 12:38:00 Is the patient allergic to Iodine/contrast media? No. 12:38:02 Is patient on blood thinner?Yes 12:38:05 ACC The patient was administered the following blood thiners within the last 24 hours: ACCPlavix 12:38:07 Patient diabetic? No. 12:38:10 Previous problem with sedation/anesthesia? No ? 12:38:11 Snore? Yes 12:38:13 Sleep apnea? No 12:38:14 Deviated septum? No 12:38:15 Opens mouth fully? Yes 12:38:16 Sticks out tongue? Yes 12:38:18 Airway obstruction? No ? 12:38:20 Dentures? No ? 12:38:23 Pre procedure: right dorsailis pedis pulse 1+ Palpable, but thready & weak; easily obliterated 12:38:31 Patient pain scale 0/10 ?. 12:38:38 IV patent on arrival in left forearm with 0.9% NaCl at [facility]. 12:38:40 Lab results completed and on chart. 12:38:46 Right groin area was prepped with chlora-prep and draped in sterile fashion 12:38:52 Alarms reviewed by R. N. 12:38:53 Sharps counted by scrub and verified by R.N. 12:44:07 Vital chart was started 12:44:23 Oxygen 2 l/min etCO2 Nasal cannula was administered by Darion Umanzor RN; Per physician; 12:44:34 Heparin Flush Bag (1000units/500ml NS) 2 bags added to field was administered by Darion Umanzor RN; used for procedure; 12:44:43 0.9% NaCl 100 ml/hr I.V. was administered by Darion Umanzor RN; Per physician; 12:49:08 Baseline sample Acquired. 12:52:28 Physician arrived 12:52:29 --------ALL STOP TIME OUT------ 12:52:29 Final Timeout: patient, procedure, and site verified with staff and physician. All members of the team are in agreement. 12:52:32 Right groin site verified by team. 12:52:38 Physical assessment completed. ASA score P 2 - A patient with mild systemic disease as per Pipe Adams MD. 12:52:41 Sedation plan: IV Moderate Sedation Medication:Versed, Fentanyl 12:52:50 Use device set Femoral Dx 12:52:51 ACIST Syringe (36869) opened to sterile field. 12:52:52 Bag Decanter () opened to sterile field. 12:52:52 Medline Cath Pack ([id number]) opened to sterile field. 12:52:53 DIAGNOSTIC WIRE .035 260cm J wire (246641) opened to sterile field. 12:52:54 ACIST Hand Control (64898) opened to sterile field. 12:52:55 ACIST Manifold (49325) opened to sterile field. 12:52:55 DIAGNOSTIC Multipack 5Fr catheter set (EB8853) opened to sterile field. 12:52:56 Tegaderm 4 x 4 (1626W) opened to sterile field. 12:53:23 BMW 190cm Hallock 2 J wire ([id number]) opened to sterile field. 12:53:24 SHEATH 6Fr Prelude ([id number]) opened to sterile field. 12:53:30 INFLATOR Merit BasixCompak (KK8668) opened to sterile field. 12:54:10 Fentanyl 50 mcg I.V. was administered by Darion Umanzor RN; for sedation; 12:54:16 Versed 1 mg I.V. was administered by Darion Umanzor RN; for sedation; 12:56:06 Procedure started. 12:58:36 Local anesthetic to right femoral artery with Lidocaine 2% by Pipe Adams MD.INITIAL ACCESS ONLY 12:58:45 A 6 Fr Short sheath was inserted into the Right Femoral artery 12:58:59 Heparin Bolus 4000 units I.V. was administered by Darion Umanzor RN; for anticoagulation; 12:58:59 GUIDE 6FR AR 2.0 catheter (AM3BC16) opened to sterile field. 12:59:05 Fentanyl 25 mcg I.V. was administered by Darion Umanzor RN; for sedation; 12:59:10 Versed 0.5 mg I.V. was administered by Darion Umanzor RN; for sedation; 12:59:13 6 Fr ar 2 guide catheter was inserted over the wire 12:59:25 RCA angiography performed. 12:59:50 bmw wire advanced. 13:01:30 Place stent Inflation Number: 1 A INTEGRITY RX 2.5 x 14 stent ([id number]) was prepped and advanced across the R PDA. The stent was deployed at 11 LORAINE for 0:10 (min:sec). 13:02:26 Stent catheter was removed intact over wire. 13:02:26 Wire removed. 13:02:27 Guide catheter removed. 13:02:36 EXOSEAL 6Fr (EX600) opened to sterile field. 13:02:44 Sheath removed intact; hemostasis achieved with Exoseal to the Right Femoral artery. 13:02:49 Procedure ended.(Physican Out) 13:03:12 Fluoroscopy time 01.90 minutes. 13:03:16 Flurop Dose total: 236 13:03:16 Fluoroscopy dose: 236 mGy 13:03:42 Contrast amount:Isovue 300 44ml. 13:03:43 Sharps counted by scrub and verified by R.N. 13:03:45 Insertion/operative site no bleeding no hematoma. 13:03:47 Post-op/insertion site Right Femoral artery dressed using a 4 x 4 and Tegaderm. 13:03:50 Post right femoral artery:stable 13:03:51 Post Procedure Pulses reassessed and unchanged 13:03:53 Post procedure rhythm: unchanged. 13:03:56 Estimated blood loss: 5 ml 13:03:57 Post procedure instruction explained to patient.Patient verbalizes understanding. 13:03:58 Patient needs reinforcement of post procedure teaching. 13:04:08 Procedure type changed to Cath procedure, PCI procedure, Coronary Stent, Coronary Stent Initial 13:04:09 Procedure and supply charges have been captured, reviewed, submitted and are correct. 13:04:13 Procedure Complication : No complications 13:04:15 Vital chart was stopped 13:04:16 See physician's report for complete and final results. 13:04:22 Report given to Pre/Post Procedure Room. 13:04:24 Patient transfered to Pre/Post Procedure Room with Stretcher. 13:04:28 Procedure ended. 13:04:28 Full Disclosure recording stopped 13:04:34 ACC-PCI Only Patient was given prescriptions, or instructed by Pipe Adams MD to start/continue the following medications upon discharge: Plavix 13:04:35 End room use (Document Last) Intervention Summary Intervention Notes Time ActionType Lesion and Equipment Action# Pressure Duration Attributes Used 13:01:30 Place stent R PDA INTEGRITY RX 1 11 00:10 2.5 x 14 stent ([id number]) Device Usage Item Name Manufacture Quantity Catalog Hospital Part Current Minimal Lot# / Number Charge Number Stock Stock Serial# Code ACIST Acist 1 67337 876718 896132 335011 20 Syringe Medical (83987) Systems Inc Bag Decanter Microtek 1 2001S 129243 50375 293709 5 () Medical Inc. Medline Cath Cardinal 1 [id number] 545623 21318 272640 5 DoctorAtWork.com ([id number]) DIAGNOSTIC St Dao 1 591810 775335 088063 457420 30 WIRE .035 260cm J wire (499142) ACIST Hand Acist 1 56955 847563 433681 877173 5 Control Medical (95353) Systems Inc ACIST Acist 1 02894 262929 616507 944800 5 Manifold Medical (79498) Systems Inc DIAGNOSTIC Cardinal 1 BZ1744 900388 53642 491654 30 Mobypark 5Fr catheter set (YF5919) Tegaderm 4 x 3M 1 1626W 743826 776021 978512 5 4 (1626W) BMW 190cm Pisano 1 [id number] 847131 05537 299552 5 Hallock 2 Vascular J wire (4514820P) SHEATH 6Fr Merit 1 [id number] 253141 491752 638663 5 Prelude Medical ([id number]) INFLATOR Merit 1 CQ1481 362354 909355 915088 15 Merit Medical BasixCompak (PU9009) GUIDE 6FR AR Medtronic 1 HO0AB90 928181 65795 782457 1 2.0 catheter (NF1RZ57) INTEGRITY RX Medtronic 1 [id number] 535904 773739 706828 5 [id number] 2.5 x 14 stent ([id number]) EXOSEAL 6Fr Cardinal 1 EX600 117188 193273 847617 10 (EX600) Health Signature Audit D Lo Stage Time Signature Unsigned Intra-Procedure 03/17/2018 Joselyn Eli 1:07:33 PM RT(R) Signatures Monitor : Joselyn Eli RT Signature : Date : Time : [address] [address]
--- NOTE | ~2018-03-17 | OP ---
PATIENT NAME: NATIVIDAD QUEZADA MEDICAL RECORD: [id number] :35 LOCATION:D.CAT ADMISSION DATE: SURGEON: SUMEET DUEÑAS MD DATE OF OPERATION: 03/17/2018 DATE OF SERVICE: 03/17/2018 PROCEDURES: 1. PTCA stent RCA. 2. Selective coronary angiography. INDICATION: Angina and coronary artery disease. PROCEDURE IN DETAIL: After informed consent was obtained and after a detailed description of the risks, benefits as well as alternative therapies, the patient elected to proceed with angiogram and angioplasty. The right femoral area was prepped and draped in normal sterile fashion. Right femoral artery was cannulated via modified Seldinger technique with placement of 6-German sheath. All catheters exchanged through this sheath. FINDINGS: The right coronary PDA has an 80% stenosis, addressed with a 2.5 x 14 mm Integrity. Result was 0% residual stenosis. OVERALL IMPRESSION: Successful percutaneous transluminal coronary angioplasty stent of the right coronary artery going from 80% initial stenosis to 0% residual. TRANSINT:[id number] Voice Confirmation ID: [id number] DOCUMENT ID: [id number] SUMEET DUEÑAS MD at 1834 CC: [id number] DICTATION DATE: 03/17/18 1305 BELT SANDER STONE: 03/17/18 1331 [address] [facility] [address] [id number]
--- NOTE | ~2018-03-17 | HP ---
PATIENT: NATIVIDAD QUEZADA MEDICAL RECORD: [id number] ACCOUNT: [id number] LOCATION:[place] : 35 ADMISSION DATE: 03/17/18 HISTORY AND PHYSICAL EXAMINATION ADMITTING DIAGNOSES: 1. Angina. 2. Coronary artery disease. 3. Recent percutaneous transluminal coronary angioplasty stent left anterior descending and circumflex with concomitant disease of the right coronary artery. 4. Hypertension. 5. Hyperlipidemia. HISTORY OF PRESENT ILLNESS: Mr. Quezada presents with anginal symptomatology, found to have 3-vessel coronary artery disease, underwent successful PTCA stent of the LAD and circumflex, now brought back for PTCA stent of the RCA. PHYSICAL EXAMINATION: GENERAL APPEARANCE: Well-nourished, well-developed, appears stated age. Level of distress, comfortable. PSYCHIATRIC: Mental status, alert, normal affect. Orientation, oriented to time, place and person. EYES: Lids and conjunctiva, noninjected. No discharge, no pallor. ENT: Lips, teeth, gums, normal dentition. Oropharynx, no cyanosis, no pallor. NECK: Carotid arteries, bilateral normal upstroke, no bruits, no thrills. JUGULAR VEINS: No jugular venous pressure or distention. CERVICAL LYMPH NODES: Nontender, nonenlarged. THYROID: Not enlarged. Nontender. No nodules. LUNGS: Respiratory effort, unlabored. CHEST: Normal curvature. No thoracic deformity. No chest wall tenderness. Percussion, resonant. Auscultation, clear. No wheezes, no rales, no rhonchi. CARDIOVASCULAR: Precordial exam, nondisplaced. No heaves or pericardial thrills. Rate and rhythm, regular. Heart sounds, normal S1, normal S2. No S3, no gallop, no rub. Systolic murmur, not heard. Diastolic murmur, not heard. EXTREMITIES: No cyanosis, no edema. Peripheral pulses, full and equal in all extremities, except as noted. No bruits appreciated. ABDOMEN: Soft, nondistended. Normal aorta. No bruit. Nontender. No masses. Liver, nontender, no hepatomegaly. Spleen, nontender, no splenomegaly. MUSCULOSKELETAL: No joint tenderness. No joint swelling. No erythema. NEUROLOGICAL: Normal gait, normal strength, normal tone. SKIN: Warm and dry. OVERALL IMPRESSION: Anginal symptomatology with significant stenosis of the right coronary artery. We will proceed with percutaneous transluminal coronary angioplasty stent of the right coronary artery. TRANSINT:[id number] Voice Confirmation ID: [id number] DOCUMENT ID: [id number] HISTORY AND PHYSICAL [id number] NATIVIDAD QUEZADA JEFFREY MD at 1834 CC: [id number] DICTATION DATE: 03/17/18 1119 BARN MANAGER: 03/17/18 113[address] [place] [address]
[2018-03-17 11:09] VITALS: BP 142/90; Ht 162.6 cm; Wt 51.4 kg
[2018-03-17 11:18] LABS: BASOPHILS 1.1 % (0-2); EOSINOPHILS 10.1 % (0-7); HEMATOCRIT 42.1 % (36.0-48.0); HEMOGLOBIN 13.5 g/dL (12-16); IMMATURE GRANULOCYTES 0.5 % (0-5); LYMPHOCYTES 22.7 % (15-50); MCH 30.3 pg (26.0-34.0); MCHC 32.1 g/dL (31.0-37.0); MCV 94.4 fL (80.0-100.0); MEAN PLATELET VOLUME 10.4 fL (7.4-10.4); MONOCYTES 14.4 % (2-11); NEUTROPHILS 51.2 % (40-80); PLATELET COUNT 156 10x3/uL (130-400); RBC 4.46 10x6/uL (4.00-5.40); RDW 15.6 % (11.5-14.5); WBC 4.4 10x3/uL (4.8-10.8)
[2018-03-17 11:34] LABS: ANION GAP 6.7 mmol/L (8-16); CARBON DIOXIDE 34.6 mmol/L (21.0-32.0); POTASSIUM - SERUM 3.3 mmol/L (3.5-5.1)
== END | disposition home or self-care (01) ==
LOC: D.CATH 09:44
PROVIDERS: Internal Medicine Interventional Cardiology
DX: I25.10 Atherosclerotic heart disease of native coronary artery without angina pectoris (principal)

== ENCOUNTER 2018-06-26 11:07 | Inpatient (IN) | payer MEDICARE ==
[~2018-06-26] VITALS: Ht 162.6 cm; Wt 50.9 kg
--- NOTE | ~2018-06-26 | CN ---
PATIENT NAME:NATIVIDAD ARAUJO MEDICAL RECORD: [id number] : 35 LOCATION:D. D.2121 ADMIT DATE: 06/26/18 ACCOUNT: [id number] CONSULTING PHYSICIAN: ATTILA RIVERA MD REFERRING PHYSICIAN: JENARO ATKINSON DO DATE OF CONSULTATION: 06/28/2018 REQUESTING PHYSICIAN: Jenaro Atkinson DO REASON FOR CONSULTATION: Bilateral pleural effusion, congestive heart failure. HISTORY OF PRESENT ILLNESS: Ms. Araujo is an 83-year-old female who was just discharged from the hospital after having surgery for the staghorn kidney stone. The patient has progressive shortness of breath, admitted for generalized anasarca. Chest radiograph showed questionable infiltrate and pleural effusion. The patient is also having leukocytosis on admission. REVIEW OF THE SYSTEMS: As in history of present illness. PAST MEDICAL HISTORY: 1. History of kidney stone. 2. Hypertension. 3. Congestive heart failure. 4. Coronary artery disease. 5. History of atrial fibrillation and edema. 6. Gastroesophageal reflux disease. 7. COPD. PAST SURGICAL HISTORY: 1. Surgery for the kidney stone. 2. Cholecystectomy. 3. T&A. 4. Gastric bypass surgery. 5. Urinary tract surgery. ALLERGIES: SHE IS ALLERGIC TO SULFA, PENICILLIN, AND LATEX. MEDICATIONS: Raiing was reviewed. PERSONAL AND SOCIAL HISTORY: The patient is nonsmoker and nondrinker. FAMILY HISTORY: Significant for cardiovascular disease. PHYSICAL EXAMINATION: GENERAL: Now, the patient is sitting comfortably in chair. She is not in acute distress. VITAL SIGNS: The blood pressure is 117/62, pulse is 68, respiration 20, temperature is 97.2, and SpO2 is 95% on 2 liters nasal cannula. HEENT: Conjunctivae are pink. Sclerae are not icteric. NECK: Neck is supple. No JVD. CHEST: The chest excursion is minimal on both sides. Dullness on percussion at the right base. HEART: Rate and rhythm are regular with grade II/ systolic murmur. ABDOMEN: Abdomen is soft. Bowel sounds present. No hepatosplenomegaly. RECTAL: Deferred. CONSULT REPORT [id number] NATIVIDAD ARAUJO EXTREMITIES: No cyanosis. No clubbing. There is 2+ pedal edema. CENTRAL NERVOUS SYSTEM: The patient is awake and alert. There is no obvious cranial nerve abnormality. The gait was not tested. DIAGNOSTIC DATA: CT scan of the chest, there are bilateral pleural effusions, right more than left. There is atelectasis and possible consolidation in the right lower lobe. LABORATORY DATA: CBC; WBC 13.7, hemoglobin 13.7, hematocrit 43, and platelet count 134. Chemistry; sodium 142 and potassium 3.3. IMPRESSION: 1. Bilateral pleural effusion, right more than the left, most likely secondary to congestive heart failure. Rule out parapneumonic with significant leukocytosis on admission. 2. Dtjot-vb-wfoghzy CHF flare up. 3. Most likely systolic dysfunction. 4. Pneumonia, right lower lobe, possible atelectasis. 5. Leukocytosis. 6. Hypokalemia. 7. COPD. RECOMMENDATION: 1. Supplemental oxygen. 2. Continue diuresis. Continue empiric Levaquin. 3. Dobutamine drip. 4. Proceed with thoracentesis. Hold on Lovenox. Dr. Atkinson, thank you for involving me in the care of Ms. Arauoj. Follow up labs and chest radiograph. TRANSINT:[id number] Voice Confirmation ID: [id number] DOCUMENT ID: [id number] ATTILA RIVERA MD at 1711 CC: [id number] DICTATION DATE: 06/28/18 1444 QUILL BUNCHER AND SORTER: 06/28/18 1815 ADM [id number] [place] [id number]
--- NOTE | ~2018-06-26 | MORECARE ---
CASE MANAGEMENT DISCHARGE SUMMARY PATIENT: NATIVIDAD QUEZADA UNIT: [id number] ADM DATE: 06/26/18 AGE: 83 : 35 SEX: F ROOM/BED: D.2121 AUTHOR: KOFFI CONDE PHYSICIAN: REFERRING PHYSICIAN: JENARO ATKINSON DO DATE OF SERVICE: 06/30/18 Discharge Plan Patient Name: NATIVIDAD QUEZADA [facility] [facility] 1935 Planned Disposition: Inpatient Rehab Anticipated Discharge Date: 06/30/18 Discharge Date: Expected LOS: 4 Initial Reviewer: [email or web address] Initial Review Date: 06/29/2018 Generated: 06/30/18 11:25 am Comments DCP- Discharge Planning Updated by [email or web address]: Freddy Sotomayor on 06/30/18 9:[address] Patient Name: NATIVIDAD QUEZADA Encounter No: [id number] : 1935 Primary Insurance: [employer] [facility] PFFS Anticipated DC Date: 06-30-2018 Planned Disposition: Inpatient Rehab External Planned Provider: [facility] DCP follow-up note: CM SPOKE TO KAROLYN OF INPATIENT REHAB, THEY PLAN TO ACCEPT PT TODAY FOR REHAB. PT NOTIFIED AND HAS DISCUSSED THIS WITH DR. ATKINSON, IN AGREEMENT WITH DISCHARGE TO INPATIENT REHAB TODAY. CM [facility], . [facility] TO CONTACT MED 2 NURSE WITH ROOM NUMBER WHEN READY TO ACCEPT PT AND NURSE REPORT. Freddy Sotomayor, SHELIA MANGARA DCP- Discharge Planning Updated by [email or web address]: Freddy Sotomayor on 06/29/18 4:[address] Patient Name: NATIVIDAD QUEZADA Admission Status: ER Accout number: [id number] Admission Date: 06-26-2018 : 1935 Admission Diagnosis:SHORTNESS OF BREATH Attending: Jenaro Atkinson Current LOS: 3 Anticipated DC Date: Planned Disposition: [facility] Facility Primary Insurance: [employer] [facility] PFFS PLANNED EXTERNAL PROVIDER: [facility], MEDICARE REHAB BED Discharge Planning Comments: CM MET WITH PT AND FRIENDS IN ROOM TO DISCUSS DISCHARGE PLANNING AND NEEDS. NATIVIDAD Lin PILAR provided verbal consent to discuss current and ongoing needs with/in the presence of:ASH ROMERO, FRIEND AND PT REPORTS POWER OF MEDICAL RECORDS DIRECTOR AND MATT RICO, FRIEND. PT REPORTS LIVING AT HOME INDEPENDENTLY AND ALONE. PT HAS A ROLLING WALKER WITH SEAT AND BRAKES AND NO MEDICAL EQUIPMENT PROVIDER PREFERENCE. PT HAS NO OUTSIDE SERVICES ASSISTING IN THE HOME. CM DISCUSSED AVAILABILITY OF HOME HEALTH, REHAB SERVICES AND MEDICAL EQUIPMENT. PT WANTS REHAB AT [place], CHOICE SIGNED. PT REPORTS HER FRIENDS WILL PICK HER UP FOR DISCHARGE HOME. IMPORTANT MESSAGE FROM MEDICARE PROVIDED AND EXPLAINED. CM FAXED REFERRAL FOR REHAB CONSIDERATION TO [facility], . CM WAITING ADMISSION DETERMINATION FROM [facility]. Sales Property Manager: Freddy Sotomayor DCPIA - Discharge Planning Initial Assessment Updated by [email or web address]: Freddy Sotomayor on 06/29/18 5:12 pm * Is the patient Alert and Oriented? Yes * How many steps to enter\exit or inside your home? NONE * PCP DR. ATKINSON * [facility] [address] [facility] INSURANCE MAIL ORDER * Preadmission Environment Home Alone * ADLs Independent * Equipment Rolling Walker * Other Equipment NO MEDICAL EQUIPMENT PROVIDER PREFERENCE * List name and contact numbers for known caregivers / representatives who currently or will assist patient after discharge: ASH ROMERO, FRIEND, MATT RICO, FRIEND, * Verbal permission to speak to the caregivers and representatives has been obtained from the patient. Yes * Community resources currently utilized None * Please name any agencies selected above. NONE * Additional services required to return to the preadmission environment? No * Can the patient safely return to the preadmission environment? Yes * Has this patient been hospitalized within the prior 30 days at any hospital? No Coverage Notice Reviewer: [email or web address] Maura Sotomayor Notice Issued Date-Time: 06/29/2018 9:55 Notice Type: IM Discharge Notice Notice Delivered To: Other Relationship to Patient: Friend Vamp Marker Name: ASH ROMERO Delivery Method: HAND - Hand Delivered Ruth Days: Prior Verbal Notification: Recipient Understood Notice: Yes Recipient Signature: Yes Med Rec Note Co-signed by Attending: Coverage Notice Comment: Reviewer: [email or web address] Maura Sotomayor Notice Issued Date-Time: 06/29/2018 9:55 Notice Type: IM Discharge Notice Notice Delivered To: Other Relationship to Patient: Friend Vamp Marker Name: ASH ROMERO Delivery Method: HAND - Hand Delivered Ruth Days: Prior Verbal Notification: Recipient Understood Notice: Yes Recipient Signature: Yes Med Rec Note Co-signed by Attending: Coverage Notice Comment: MAYANK Walker DP export: 06/29/18 4:20 Patient Name: NATIVIDAD QUEZADA Page [phone] at 1025 All edits/amendments must be made on the electronic document DICTATION DATE: 06/30/18 1024 MANAGER OF DIGITAL: KENNY 06/30/18 1024 RPT#: [id number] DC DATE: STATUS: ADM IN [facility] [address] [place] [address] END OF REPORT
--- NOTE | ~2018-06-26 | MORECARE ---
CASE MANAGEMENT DISCHARGE SUMMARY PATIENT: NATIVIDAD QUEZADA UNIT: [id number] ADM DATE: 06/26/18 AGE: 83 : 35 SEX: F ROOM/BED: D.3709 AUTHOR: KOFFI CONDE PHYSICIAN: REFERRING PHYSICIAN: JENARO ATKINSON DO DATE OF SERVICE: 06/29/18 Discharge Plan Patient Name: NATIVIDAD QUEZADA Facility: [facility]:[place] : 1935 Planned Disposition: Half-Way Facility Anticipated Discharge Date: Discharge Date: Expected LOS: Initial Reviewer: [id number] Initial Review Date: 06/29/2018 Generated: 06/29/18 6:20 pm Comments DCP- Discharge Planning Updated by MADI: Freddy Sotomayor on 06/29/18 4:[address] Patient Name: NATIVIDAD QUEZADA Admission Status: ER Accout number: [id number] Admission Date: 06-26-2018 : 1935 Admission Diagnosis:SHORTNESS OF BREATH Attending: Jenaro Atkinson Current LOS: 3 Anticipated DC Date: Planned Disposition: Half-Way Facility Primary Insurance: [employer] [facility] PLANNED EXTERNAL PROVIDER: [facility], MEDICARE REHAB BED Discharge Planning Comments: CM MET WITH PT AND FRIENDS IN ROOM TO DISCUSS DISCHARGE PLANNING AND NEEDS. 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 PT REPORTS LIVING AT HOME INDEPENDENTLY AND ALONE. PT HAS A ROLLING WALKER WITH SEAT AND BRAKES AND NO MEDICAL EQUIPMENT PROVIDER PREFERENCE. PT HAS NO OUTSIDE SERVICES ASSISTING IN THE HOME. CM DISCUSSED AVAILABILITY OF HOME HEALTH, REHAB SERVICES AND MEDICAL EQUIPMENT. PT WANTS REHAB AT [facility], CHOICE SIGNED. PT REPORTS HER FRIENDS WILL PICK HER UP FOR DISCHARGE HOME. IMPORTANT MESSAGE FROM MEDICARE PROVIDED AND EXPLAINED. CM FAXED REFERRAL FOR REHAB CONSIDERATION TO [facility], . CM WAITING ADMISSION DETERMINATION FROM [facility]. Bulb Grower: Freddy Sotomayor DCPIA - Discharge Planning Initial Assessment Updated by [id number]: Freddy Sotomayor on 06/29/18 5:12 pm * Is the patient Alert and Oriented? Yes * How many steps to enter\exit or inside your home? NONE * PCP DR. ATKINSON * Pharmacy [facility] [address] OR INSURANCE MAIL ORDER * Preadmission Environment Home Alone * ADLs Independent * Equipment Rolling Walker * Other Equipment NO MEDICAL EQUIPMENT PROVIDER PREFERENCE * List name and contact numbers for known caregivers / representatives who currently or will assist patient after discharge: ASH ROMERO, FRIEND, MATT RICO, FRIEND, * Verbal permission to speak to the caregivers and representatives has been obtained from the patient. Yes * Community resources currently utilized None * Please name any agencies selected above. NONE * Additional services required to return to the preadmission environment? No * Can the patient safely return to the preadmission environment? Yes * Has this patient been hospitalized within the prior 30 days at any hospital? No Coverage Notice Reviewer: [id number] Sotomayor Notice Issued Date-Time: 06/29/2018 9:55 Notice Type: IM Discharge Notice Notice Delivered To: Other Relationship to Patient: Friend Wide Area Network Administrator Name: ASH ROMERO Delivery Method: HAND - Hand Delivered Ruth Days: Prior Verbal Notification: Recipient Understood Notice: Yes Recipient Signature: Yes Med Rec Note Co-signed by Attending: Coverage Notice Comment: Reviewer: [id number] Sotomayor Notice Issued Date-Time: 06/29/2018 9:55 Notice Type: IM Discharge Notice Notice Delivered To: Other Relationship to Patient: Friend Wide Area Network Administrator Name: ASH ROMERO Delivery Method: HAND - Hand Delivered Ruth Days: Prior Verbal Notification: Recipient Understood Notice: Yes Recipient Signature: Yes Med Rec Note Co-signed by Attending: Coverage Notice Comment: MAYANK Walker DP export: 06/29/18 4:13 Patient Name: NATIVIDAD QUEZADA Page [id number] at 1720 All edits/amendments must be made on the electronic document DICTATION DATE: 06/29/181719 GAS FITTER: KENNY 06/29/181719 RPT#: [id number] DC DATE: STATUS: ADM IN [facility] [address] [place] [address] END OF REPORT
--- NOTE | ~2018-06-26 | MORECARE ---
CASE MANAGEMENT DISCHARGE SUMMARY PATIENT: NATIVIDAD QUEZADA UNIT: [id number] ADM DATE: 06/26/18 AGE: 83 : 35 SEX: F ROOM/BED: D[facility] AUTHOR: KOFFI CONDE PHYSICIAN: REFERRING PHYSICIAN: LYNETTE ATKINSON DO DATE OF SERVICE: 06/29/18 Discharge Plan Patient Name: NATIVIDAD QUEZADA Facility: [facility]:[place] : 1935 Planned Disposition: Detention Facility Anticipated Discharge Date: Discharge Date: Expected LOS: Initial Reviewer: [email or web address] Initial Review Date: 06/29/2018 Generated: 06/29/18 6:13 pm DCPIA - Discharge Planning Initial Assessment Updated by MADI: Freddy Sotomayor on 06/29/18 5:12 pm * Is the patient Alert and Oriented? Yes * How many steps to enter\exit or inside your home? NONE * PCP DR. ATKINSON * [facility] [address] [facility]ANCE MAIL ORDER * Preadmission Environment Home Alone * ADLs Independent * Equipment Rolling Walker * Other Equipment NO MEDICAL EQUIPMENT PROVIDER PREFERENCE * List name and contact numbers for known caregivers / representatives who currently or will assist patient after discharge: ASH ROMERO, FRIEND, MATT RICO, FRIEND, * Verbal permission to speak to the caregivers and representatives has been obtained from the patient. Yes * Community resources currently utilized None * Please name any agencies selected above. NONE * Additional services required to return to the preadmission environment? No * Can the patient safely return to the preadmission environment? Yes * Has this patient been hospitalized within the prior 30 days at any hospital? No External [facility]iders [facility] Next Contact Date: 06/30/2018 Service Request Date: Service Type: Resolution: Reviewer: Comments: Coverage Notice Reviewer: [id number] - Freddy Sotomayor Notice Issued Date-Time: 06/29/2018 9:55 Notice Type: IM Discharge Notice Notice Delivered To: Other Relationship to Patient: Friend Perinatology Physician Name: ASH ROMERO Delivery Method: HAND - Hand Delivered Ruth Days: Prior Verbal Notification: Recipient Understood Notice: Yes Recipient Signature: Yes Med Rec Note Co-signed by Attending: Coverage Notice Comment: Reviewer: [id number] - Freddy Sotomayor Notice Issued Date-Time: 06/29/2018 9:55 Notice Type: IM Discharge Notice Notice Delivered To: Other Relationship to Patient: Friend Perinatology Physician Name: ASH ROMERO Delivery Method: HAND - Hand Delivered Ruth Days: Prior Verbal Notification: Recipient Understood Notice: Yes Recipient Signature: Yes Med Rec Note Co-signed by Attending: Coverage Notice Comment: MAYANK MONSIVAIS Patient Name: NATIVIDAD QUEZADA Page 03053 at 1713 All edits/amendments must be made on the electronic document DICTATION DATE: 06/29/181712 FURNACE ATTENDANT: KENNY 06/29/181712 RPT#: [id number] DC DATE: STATUS: ADM IN [facility] [address] [place] [address] END OF REPORT
[2018-06-26] MEDS ORDERED: PACERONE200 MG PO (11:19)
[2018-06-26 11:30] VITALS: BP 151/84
[2018-06-26 12:08] LABS: BASOPHILS 0.1 % (0-2); EOSINOPHILS 0 % (0-7); HEMOGLOBIN 13.7 g/dL (12-16); IMMATURE GRANULOCYTES 0.4 % (0-5); LYMPHOCYTES 4.4 % (15-50); MCH 30.9 pg (26.0-34.0); MCHC 31.9 g/dL (31.0-37.0); MCV 97.1 fL (80.0-100.0); MEAN PLATELET VOLUME 10.8 fL (7.4-10.4); MONOCYTES 7.7 % (2-11); NEUTROPHILS 87.4 % (40-80); PLATELET COUNT 134 10x3/uL (130-400); RBC 4.43 10x6/uL (4.00-5.40); RDW 16.8 % (11.5-14.5); WBC 13.7 10x3/uL (4.8-10.8)
[2018-06-26 12:26] LABS: ALBUMIN 3.1 g/dL (3.4-5.0); ALKALINE PHOSPHATASE 79 U/L (46-116); ALT (SGPT) 21 U/L (10-68); BILIRUBIN - TOTAL 3.37 mg/dL (0.2-1.3); CALC OSMOLALITY 294 mosm/kg (275-300); CALCIUM 8.6 mg/dL (8.5-10.1); CARBON DIOXIDE 31.2 mmol/L (21.0-32.0); CHLORIDE - SERUM 98 mmol/L (98-107); CREATININE - SERUM 1.6 mg/dL (0.6-1.3); GLUCOSE 117 mg/dL (74-106); POTASSIUM - SERUM 3.4 mmol/L (3.5-5.1); PROTEIN - SERUM 6.8 g/dL (6.4-8.2); SODIUM 143 mmol/L (136-145); UREA NITROGEN 37 mg/dL (7-18); eGFR NON AFRICAN AMERICAN 33 mL/min (90-120)
[2018-06-26 12:41] LABS: CKMB 9.9 U/L (0.0-3.6); CREATINE KINASE 468 UL (21-215); MAGNESIUM - SERUM 1.8 mg/dL (1.8-2.4)
[2018-06-26 12:44] LABS: TROPONIN-I 0.085 ng/mL (0.000-0.060)
[2018-06-26 12:59] LABS: PRO BNP 52647 pg/mL (0-450)
[2018-06-26 13:01] VITALS: BP 138/81
[2018-06-26 15:01] VITALS: BP 135/71
[2018-06-26 15:20] LABS: APPEARANCE CLEAR (CLEAR); BILIRUBIN 1+ (NEGATIVE); COLOR DK YELLOW (YELLOW); GLUCOSE NEGATIVE (NEGATIVE); KETONE NEGATIVE (NEGATIVE); NITRITE NEGATIVE (NEGATIVE); PROTEIN 2+ mg/dL (NEGATIVE); SPECIFIC GRAVITY 1.015 (1.005-1.020)
[2018-06-26 15:21] LABS: BACTERIA MODERATE /hpf (NONE SEEN); EPITHELIAL CELLS 0-5 /hpf (0-5); RED CELLS - URINE >50 /hpf (0-5); WHITE CELLS - URINE 0-5 /hpf (0-5)
[2018-06-26 19:00] VITALS: BP 126/84
[2018-06-26 23:40] VITALS: BP 138/81; BMI 20.3
[2018-06-27 00:45] VITALS: BP 124/78
[2018-06-27 04:37] LABS: BASOPHILS 0 % (0-2); EOSINOPHILS 0.2 % (0-7); HEMATOCRIT 38.5 % (36.0-48.0); HEMOGLOBIN 12.3 g/dL (12-16); IMMATURE GRANULOCYTES 0.3 % (0-5); LYMPHOCYTES 7.7 % (15-50); MCH 30.4 pg (26.0-34.0); MCHC 31.9 g/dL (31.0-37.0); MCV 95.3 fL (80.0-100.0); MEAN PLATELET VOLUME 11.6 fL (7.4-10.4); MONOCYTES 8.3 % (2-11); NEUTROPHILS 83.5 % (40-80); PLATELET COUNT 130 10x3/uL (130-400); RBC 4.04 10x6/uL (4.00-5.40); RDW 16.5 % (11.5-14.5); WBC 10.7 10x3/uL (4.8-10.8)
[2018-06-27 04:57] VITALS: BP 129/79
[2018-06-27 05:20] LABS: ALBUMIN 2.7 g/dL (3.4-5.0); ALKALINE PHOSPHATASE 70 U/L (46-116); BILIRUBIN - TOTAL 2.36 mg/dL (0.2-1.3); CALC OSMOLALITY 288 mosm/kg (275-300); CARBON DIOXIDE 35.2 mmol/L (21.0-32.0); CHLORIDE - SERUM 101 mmol/L (98-107); CKMB 10.3 U/L (0.0-3.6); CREATININE - SERUM 1.4 mg/dL (0.6-1.3); GLUCOSE 86 mg/dL (74-106); MAGNESIUM - SERUM 1.5 mg/dL (1.8-2.4); POTASSIUM - SERUM 3.2 mmol/L (3.5-5.1); PROTEIN - SERUM 5.9 g/dL (6.4-8.2); SODIUM 141 mmol/L (136-145); UREA NITROGEN 39 mg/dL (7-18); eGFR NON AFRICAN AMERICAN 38 mL/min (90-120)
[2018-06-27 06:20] LABS: ALT (SGPT) 28 U/L (10-68); CREATINE KINASE 669 UL (21-215); PRO BNP 42275 pg/mL (0-450)
[2018-06-27 08:11] VITALS: BP 138/79
[2018-06-27 11:08] VITALS: BP 119/73
[2018-06-27 12:08] VITALS: BMI 20.2
[2018-06-27 14:34] VITALS: Ht 162.6 cm; Wt 50.9 kg
[2018-06-27 16:40] VITALS: BP 123/73
[2018-06-27 20:48] VITALS: BP 135/73
[2018-06-28 01:06] VITALS: BP 103/67
[2018-06-28 05:11] VITALS: BP 134/87
[2018-06-28 05:52] LABS: BASOPHILS 0 % (0-2); EOSINOPHILS 0.2 % (0-7); HEMATOCRIT 39.3 % (36.0-48.0); HEMOGLOBIN 12.8 g/dL (12-16); IMMATURE GRANULOCYTES 0.2 % (0-5); LYMPHOCYTES 8.2 % (15-50); MCH 31.1 pg (26.0-34.0); MCHC 32.6 g/dL (31.0-37.0); MCV 95.6 fL (80.0-100.0); MEAN PLATELET VOLUME 11.8 fL (7.4-10.4); MONOCYTES 7.5 % (2-11); NEUTROPHILS 83.9 % (40-80); PLATELET COUNT 125 10x3/uL (130-400); RBC 4.11 10x6/uL (4.00-5.40); RDW 16.7 % (11.5-14.5); WBC 8.8 10x3/uL (4.8-10.8)
[2018-06-28 06:37] LABS: ALBUMIN 2.5 g/dL (3.4-5.0); ALKALINE PHOSPHATASE 66 U/L (46-116); ALT (SGPT) 30 U/L (10-68); CALC OSMOLALITY 290 mosm/kg (275-300); CALCIUM 7.9 mg/dL (8.5-10.1); CARBON DIOXIDE 35.6 mmol/L (21.0-32.0); CHLORIDE - SERUM 100 mmol/L (98-107); CKMB 11.2 U/L (0.0-3.6); CREATINE KINASE 761 UL (21-215); CREATININE - SERUM 1.3 mg/dL (0.6-1.3); GLUCOSE 86 mg/dL (74-106); MAGNESIUM - SERUM 1.4 mg/dL (1.8-2.4); PHOSPHOROUS 2.6 mg/dL (2.5-4.9); POTASSIUM - SERUM 3.3 mmol/L (3.5-5.1); PROTEIN - SERUM 5.8 g/dL (6.4-8.2); SODIUM 142 mmol/L (136-145); T4 THYROXIN - FREE 1.54 ng/dL (0.76-1.46); THYROID STIMULATING HORMONE 7.52 uIU/mL (0.36-3.74); UREA NITROGEN 37 mg/dL (7-18); eGFR NON AFRICAN AMERICAN 41 mL/min (90-120)
[2018-06-28 07:57] VITALS: BP 122/65
[2018-06-28 11:30] VITALS: BP 117/62
[2018-06-28 18:08] VITALS: BP 110/51
[2018-06-28 20:33] VITALS: BP 110/68
[2018-06-29] VITALS (10 sets, daily range): BP systolic 72–156; BP diastolic 57–102
[2018-06-29 06:03] LABS: BASOPHILS 0 % (0-2); EOSINOPHILS 0.5 % (0-7); HEMATOCRIT 36.3 % (36.0-48.0); HEMOGLOBIN 11.9 g/dL (12-16); IMMATURE GRANULOCYTES 0.2 % (0-5); LYMPHOCYTES 9.5 % (15-50); MCH 30.8 pg (26.0-34.0); MCHC 32.8 g/dL (31.0-37.0); MEAN PLATELET VOLUME 11.5 fL (7.4-10.4); MONOCYTES 9.8 % (2-11); PLATELET COUNT 122 10x3/uL (130-400); RBC 3.86 10x6/uL (4.00-5.40); RDW 16.8 % (11.5-14.5)
[2018-06-29 06:12] LABS: WBC 6.4 10x3/uL (4.8-10.8)
[2018-06-29 06:23] LABS: ALBUMIN 2.3 g/dL (3.4-5.0); ANION GAP 8.2 mmol/L (8-16); BILIRUBIN - TOTAL 1.41 mg/dL (0.2-1.3); CALCIUM 7.7 mg/dL (8.5-10.1); CARBON DIOXIDE 35.9 mmol/L (21.0-32.0); CREATININE - SERUM 1.3 mg/dL (0.6-1.3); MAGNESIUM - SERUM 1.3 mg/dL (1.8-2.4); PHOSPHOROUS 2.4 mg/dL (2.5-4.9); POTASSIUM - SERUM 3.1 mmol/L (3.5-5.1); PROTEIN - SERUM 5.4 g/dL (6.4-8.2)
[2018-06-29 07:34] LABS: INR 1.61 (0.85-1.17); PROTIME 18.5 SECONDS (11.6-15.0)
[2018-06-29 15:11] LABS: PROTEIN - BODY FLUID 1.8 G/DL
[2018-06-29 15:41] LABS: EOS BF 0 %; MACROPHAGES BF 0 %; MESOTHELIALS BF 0 %; NEUT - BF 0 %
[2018-06-30 01:20] VITALS: BP 122/62
[2018-06-30 05:06] LABS: BASOPHILS 0 % (0-2); EOSINOPHILS 0.7 % (0-7); HEMATOCRIT 37.9 % (36.0-48.0); HEMOGLOBIN 12.3 g/dL (12-16); IMMATURE GRANULOCYTES 0.1 % (0-5); LYMPHOCYTES 9.5 % (15-50); MCH 30.8 pg (26.0-34.0); MCHC 32.5 g/dL (31.0-37.0); MCV 94.8 fL (80.0-100.0); MEAN PLATELET VOLUME 11.3 fL (7.4-10.4); MONOCYTES 10.1 % (2-11); NEUTROPHILS 79.6 % (40-80); PLATELET COUNT 115 10x3/uL (130-400); RDW 17.1 % (11.5-14.5); WBC 7.3 10x3/uL (4.8-10.8)
[2018-06-30 05:30] LABS: ALBUMIN 2.3 g/dL (3.4-5.0); ANION GAP 9.6 mmol/L (8-16); BILIRUBIN - TOTAL 1.3 mg/dL (0.2-1.3); CALCIUM 7.9 mg/dL (8.5-10.1); CARBON DIOXIDE 32.4 mmol/L (21.0-32.0); MAGNESIUM - SERUM 1.5 mg/dL (1.8-2.4); PHOSPHOROUS 3.1 mg/dL (2.5-4.9); PROTEIN - SERUM 5.4 g/dL (6.4-8.2)
[2018-06-30 06:38] VITALS: BP 113/80
[2018-06-30 08:09] VITALS: BP 133/73
[2018-06-30 12:58] VITALS: BP 116/68
[2018-06-30 13:15] LABS: FUNGUS STAIN Final report (())
[2018-06-30] MEDS ORDERED: LASIX40 MG PO (14:17)
[2018-06-30] MEDS ORDERED: ALDACTONE25 MG PO (14:17)
[2018-06-30] MEDS ORDERED: K-DUR20 MEQ PO (14:17)
[2018-06-30 16:14] LABS: ACID FAST SMEAR Negative (()); AFB SPECIMEN PROCESSING Not Indicated (())
== END 2018-06-30 17:11 | DRG 291 ==
LOC: D.ER 11:07 → D.EDHOLD 15:38 → D.M2 15:38
PROVIDERS: Family Medicine; Internal Medicine Pulmonary Disease; Radiology Vascular & Interventional Radiology
DX: I11.0 Hypertensive heart disease with heart failure (principal); J18.9 Pneumonia, unspecified organism; J44.0 Chronic obstructive pulmonary disease with (acute) lower respiratory infection; N39.0 Urinary tract infection, site not specified; I50.23 Acute on chronic systolic (congestive) heart failure; E87.6 Hypokalemia; Z95.0 Presence of cardiac pacemaker; I48.0 Paroxysmal atrial fibrillation; I25.10 Atherosclerotic heart disease of native coronary artery without angina pectoris

== ENCOUNTER 2018-06-30 15:57 | Inpatient (IN) | payer MEDICARE ==
[~2018-06-30] VITALS: Ht 162.6 cm; Wt 57.6 kg
--- NOTE | ~2018-06-30 | RHP ---
PATIENT: NATIVIDAD QUEZADA MEDICAL RECORD: [id number] ACCOUNT: [id number] LOCATION:[facility]1118 : 35 ADMISSION DATE: 06/30/18 REHABILITATION HISTORY AND PHYSICAL EXAMINATION POST ADMISSION PHYSICIAN EXAMINATION DATE OF ADMISSION: 06/30/2018 The patient was actually seen that day, but her admission screening was not yet in the chart and the patient was not officially checked in here in the unit. ADMITTING DIAGNOSIS: Acute decompensated heart failure. HISTORY OF PRESENT ILLNESS: The patient is an 83-year-old female patient admitted to the inpatient rehab under cardiac impairment group with diagnoses of acute decompensated heart failure, history of coronary artery disease, and paroxysmal atrial fib. She has had pacemaker placed in the past and hypertension. She is status post surgery to remove a staghorn calculus last week at [facility] by Dr. Ashford. She was admitted to the acute hospital with anasarca, shortness of breath, weakness, leukopenia, falls with pneumonia, and found to be in decompensated heart failure with BNP greater than 50,000. Her EF was 25%. Her last intervention to her left anterior descending and right coronary artery was in April. She denied any anginal symptoms up on this. She has been diuresed with some improvement in her breathlessness. She is a Jewish, does not accept blood products; and she is not on anticoagulation from her paroxysmal atrial fib standpoint. Telemetry showed that she was in a ventricular paced rate in the 60s. Cardiology was consulted. She had a bump in her troponin, likely they felt like secondary to acute kidney injury. She was placed on spironolactone. Pulmonary was consulted secondary to bilateral pulmonary effusions. Dr. Torres concluded that this was likely secondary to heart failure. Thoracentesis was done with 1000 cc of fluid aspirated. The patient has been having some problems with hypokalemia and COPD. She is currently requiring some O2. This definitely needs to be managed during her acute stay in rehab by MD and also by nursing. Prior to illness, she was living alone, was independent with ADLs. She does use a Rollator, but was independent with ambulation at home. She is currently max assist with ambulation, requiring rolling walker to go 80 feet. She is min to mod assist with ADLs and self-care deficit. She lives alone. Currently, has a Simpson and requires bladder training. All these are barriers to her discharge to home. She will require intensive inpatient therapy here in order to get back to her prior level of function and hopefully return home on her home. COMORBIDITIES: Include bilateral pleural effusion, systolic CHF, pneumonia, status post thoracentesis, renal insufficiency, atrial fib, Coumadin toxicity, COPD, shortness of breath, weakness, bradycardia, anasarca, coronary artery disease, UTI, pacemaker, and acid reflux. PAST MEDICAL HISTORY: Significant for kidney stones, hypertension, congestive heart failure, coronary artery disease, history of AFib, gastroesophageal reflux disease, and COPD. PAST SURGICAL HISTORY: Includes kidney stone removal, cholecystectomy, tonsillectomy, adenoidectomy, gastric bypass, and urinary tract surgery. ALLERGIES: PENICILLIN, BACTRIM, AND LATEX. HISTORY AND PHYSICAL [id number] NATIVIDAD QUEZADA CURRENT MEDICATIONS: She is on Calmoseptine as needed. She is on spironolactone 25 mg daily, lisinopril 5 mg daily, Synthroid 50 mcg daily, furosemide 40 mg b.i.d., B12 250 mcg daily, Celexa 20 mg daily, vitamin D 2000 units daily, Qing 60 mg daily, polyethylene glycol 17 grams in 8 ounces of water daily, Ambien 10 mg at bedtime p.r.n., Desyrel 50 mg at bedtime, tramadol 50 mg q. 4 hours p.r.n., Betapace 80 mg b.i.d., potassium 20 mEq b.i.d., metoprolol 25 mg b.i.d., furosemide 325 mg t.i.d., and amiodarone 200 b.i.d. HABITS: No current alcohol or tobacco use. FAMILY HISTORY: Noncontributory. SOCIAL HISTORY: The patient hopes to return back home and get back to her prior level of functioning. REVIEW OF SYSTEMS: GENERAL: She does complain a little bit of weakness and fatigue. HEENT: Denies cold, cough, or congestion. CARDIOVASCULAR: Denies chest pain. PHYSICAL EXAMINATION: VITAL SIGNS: Stable. Afebrile. GENERAL: A well-developed female, in no acute distress, alert upon exam. HEENT: Normocephalic and atraumatic. Mucosa moist. NECK: Supple. No lymphadenopathy. LUNGS: Clear in upper [place]. She does have decreased breath sounds on the right. CARDIOVASCULAR: Irregular rate and rhythm. ABDOMEN: Benign. EXTREMITIES: No clubbing, cyanosis, or edema. NEUROLOGIC: She is intact. LABORATORY DATA: White count was 7.9, H&H 13 and 40, and platelet count was noted to be 140. Her admit chemistry showed sodium 140, potassium 4.1, BUN and creatinine of 24 and 1.1, and blood sugar was noted to be 110. Her admit UA did show little bit of protein and trace blood. She did have a little bit of leukocyte esterase. I think I will go ahead and treat that. ASSESSMENT: This is an 83-year-old female patient admitted to the rehab with working diagnosis of decompensated congestive heart failure. The patient has potential to make improvement. We will institute the following multidisciplinary therapies including, but not limited to physical, occupational, respiratory, speech, nutritional services, prosthetics, and orthotics. Given her complex medical condition and risk for more complications, rehabilitation services cannot be provided at a low level of care such as usp facility. PLAN: 1. Admit to [facility] for inpatient therapy to include the following disciplines; A. Physical therapy to improve gait, all transfer skills, and bed mobility to modified independent level. B. Occupational therapy to improve activities of daily living to a modified independent level. HISTORY AND PHYSICAL [id number] NATIVIDAD QUEZADA C. Case management to assist with discharge planning and placement options. D. Nutrition to assist with nutritional needs. E. Rehabilitation nursing to assist in monitoring the patient's underlying medical conditions and to assist with any type of bowel or bladder management. 2. The patient's current medication and medical care will be continued. 3. The patient will be placed on standard fall precautions. 4. The patient's estimated length of stay is approximately 7-10 days. 5. We will discuss this patient during care team staff meeting this week. Continue on home medications where appropriately and we will see again in the a.m. TRANSINT:[id number] Voice Confirmation ID: [id number] DOCUMENT ID: [id number] SUSANA notes whether there has been none or any medical/functional change since admission: - No chance since preadmission screen. SUSANA attests patient continues to be appropriate for IRF: - Continues to be appropriate. LYNETTE PRICE MD at 1538 CC: [id number] DICTATION DATE: 07/03/18 0859 WINE STEWARD: 07/03/18 1132 ADM IN [place] [id number] [place] [id number]
[~2018-06-30 15:57] MED LIST changes: +ALDACTONE25 MG PO; +K-DUR20 MEQ PO; +PACERONE200 MG PO
[2018-06-30 17:58] VITALS: BP 123/58; BMI 21.8
[2018-06-30 19:00] VITALS: BP 119/68
[2018-06-30 23:03] VITALS: BP 119/68
[2018-07-01 00:19] LABS: APPEARANCE HAZY (CLEAR); BILIRUBIN NEGATIVE (NEGATIVE); COLOR YELLOW (YELLOW); GLUCOSE NEGATIVE (NEGATIVE); KETONE NEGATIVE (NEGATIVE); NITRITE NEGATIVE (NEGATIVE); PROTEIN TRACE mg/dL (NEGATIVE); SPECIFIC GRAVITY 1.015 (1.005-1.020); UROBILINOGEN NORMAL (NORMAL)
[2018-07-01 00:20] LABS: BACTERIA NONE SEEN /hpf (NONE SEEN); EPITHELIAL CELLS 0-5 /hpf (0-5); RED CELLS - URINE 25-50 /hpf (0-5); WHITE CELLS - URINE 0-5 /hpf (0-5)
[2018-07-01 08:00] VITALS: BP 125/77
[2018-07-01 08:28] LABS: BASOPHILS 0.1 % (0-2); EOSINOPHILS 1.5 % (0-7); HEMATOCRIT 40.4 % (36.0-48.0); HEMOGLOBIN 13.2 g/dL (12-16); IMMATURE GRANULOCYTES 0.1 % (0-5); LYMPHOCYTES 11.5 % (15-50); MCH 31.6 pg (26.0-34.0); MCHC 32.7 g/dL (31.0-37.0); MCV 96.7 fL (80.0-100.0); MEAN PLATELET VOLUME 11.2 fL (7.4-10.4); MONOCYTES 9.1 % (2-11); NEUTROPHILS 77.7 % (40-80); RBC 4.18 10x6/uL (4.00-5.40); RDW 17.3 % (11.5-14.5); WBC 7.9 10x3/uL (4.8-10.8)
[2018-07-01 08:32] LABS: PLATELET COUNT 140 10x3/uL (130-400)
[2018-07-01 08:38] LABS: ANION GAP 5.1 mmol/L (8-16); CALCIUM 8.2 mg/dL (8.5-10.1); CREATININE - SERUM 1.1 mg/dL (0.6-1.3); POTASSIUM - SERUM 4.1 mmol/L (3.5-5.1)
[2018-07-01 10:02] VITALS: Ht 162.6 cm; Wt 57.6 kg
[2018-07-01 22:16] VITALS: BP 112/73
[2018-07-02 08:00] VITALS: BP 132/79
[2018-07-02 19:30] VITALS: BP 133/84
[2018-07-03 08:00] VITALS: BP 143/87
[2018-07-03 19:25] VITALS: BP 141/76
[2018-07-04 08:18] VITALS: BP 139/67
[2018-07-04 21:55] VITALS: BP 123/72
[2018-07-05 07:38] LABS: BASOPHILS 0.2 % (0-2); EOSINOPHILS 2.3 % (0-7); HEMATOCRIT 43.8 % (36.0-48.0); HEMOGLOBIN 14.4 g/dL (12-16); IMMATURE GRANULOCYTES 0.3 % (0-5); LYMPHOCYTES 14.6 % (15-50); MCH 31.4 pg (26.0-34.0); MCHC 32.9 g/dL (31.0-37.0); MCV 95.6 fL (80.0-100.0); MEAN PLATELET VOLUME 11.2 fL (7.4-10.4); MONOCYTES 12.2 % (2-11); NEUTROPHILS 70.4 % (40-80); PLATELET COUNT 136 10x3/uL (130-400); RBC 4.58 10x6/uL (4.00-5.40); RDW 17.1 % (11.5-14.5); WBC 6.5 10x3/uL (4.8-10.8)
[2018-07-05 07:43] LABS: ANION GAP 8.2 mmol/L (8-16); CALCIUM 8.5 mg/dL (8.5-10.1); CARBON DIOXIDE 36.9 mmol/L (21.0-32.0); CREATININE - SERUM 1.2 mg/dL (0.6-1.3); POTASSIUM - SERUM 4.1 mmol/L (3.5-5.1)
[2018-07-05 08:00] VITALS: BP 89/48
[2018-07-05 19:00] VITALS: BP 120/65
[2018-07-06 07:59] VITALS: BP 131/70
[2018-07-06 19:00] VITALS: BP 117/73
[2018-07-07 08:00] VITALS: BP 110/59
[2018-07-07 19:44] VITALS: BP 114/64
[2018-07-08 08:00] VITALS: BP 108/64
[2018-07-08 20:00] VITALS: BP 126/81
[2018-07-09 08:00] VITALS: BP 93/48
[2018-07-09 19:30] VITALS: BP 123/66
[2018-07-10 08:25] VITALS: BP 139/83
[2018-07-10 09:31] LABS: BASOPHILS 0.3 % (0-2); EOSINOPHILS 1.7 % (0-7); HEMOGLOBIN 14.3 g/dL (12-16); IMMATURE GRANULOCYTES 0.3 % (0-5); LYMPHOCYTES 15.5 % (15-50); MCH 32.1 pg (26.0-34.0); MCHC 33.3 g/dL (31.0-37.0); MCV 96.4 fL (80.0-100.0); MEAN PLATELET VOLUME 10.5 fL (7.4-10.4); MONOCYTES 6.4 % (2-11); NEUTROPHILS 75.8 % (40-80); RBC 4.46 10x6/uL (4.00-5.40); RDW 16.8 % (11.5-14.5); WBC 6.4 10x3/uL (4.8-10.8)
[2018-07-10 09:32] LABS: PLATELET COUNT 186 10x3/uL (130-400)
[2018-07-10 09:49] LABS: ANION GAP 11.8 mmol/L (8-16); CALCIUM 7.7 mg/dL (8.5-10.1); CARBON DIOXIDE 30.6 mmol/L (21.0-32.0); POTASSIUM - SERUM 4.4 mmol/L (3.5-5.1)
[2018-07-10 19:48] VITALS: BP 122/64
[2018-07-11 08:00] VITALS: BP 123/83
[2018-07-11] MEDS ORDERED: LASIX20 MG PO (09:26)
[2018-07-11] MEDS ORDERED: BETAPACE 80 MG80 MG PO (09:26)
== END 2018-07-11 15:45 | disposition home health service (06) | DRG 291 ==
LOC: D.REHAB 15:57
PROVIDERS: Emergency Medicine
DX: I11.0 Hypertensive heart disease with heart failure (principal); I50.21 Acute systolic (congestive) heart failure; J18.9 Pneumonia, unspecified organism; N39.0 Urinary tract infection, site not specified; I48.91 Unspecified atrial fibrillation; J44.9 Chronic obstructive pulmonary disease, unspecified; I25.10 Atherosclerotic heart disease of native coronary artery without angina pectoris; K21.9 Gastro-esophageal reflux disease without esophagitis; Z95.0 Presence of cardiac pacemaker; N28.9 Disorder of kidney and ureter, unspecified; R53.1 Weakness; R60.1 Generalized edema; T45.511D Poisoning by anticoagulants, accidental (unintentional), subsequent encounter; R06.02 Shortness of breath

== ENCOUNTER 2018-08-14 11:58 | Outpatient (CLI) | payer MEDICARE ==
[~2018-08-14] VITALS: Ht 162.6 cm; Wt 57.7 kg
[~2018-08-14 11:58] MED LIST changes: +LASIX20 MG PO
[2018-08-14 13:26] LABS: BASOPHILS 0.1 % (0-2); EOSINOPHILS 0 % (0-7); HEMATOCRIT 37.5 % (36.0-48.0); HEMOGLOBIN 12.4 g/dL (12-16); IMMATURE GRANULOCYTES 0.2 % (0-5); LYMPHOCYTES 5.2 % (15-50); MCH 32.5 pg (26.0-34.0); MCHC 33.1 g/dL (31.0-37.0); MCV 98.2 fL (80.0-100.0); MEAN PLATELET VOLUME 9.7 fL (7.4-10.4); MONOCYTES 6.4 % (2-11); NEUTROPHILS 88.1 % (40-80); RBC 3.82 10x6/uL (4.00-5.40); WBC 10.3 10x3/uL (4.8-10.8)
[2018-08-14 13:29] LABS: PLATELET COUNT 301 10x3/uL (130-400)
[2018-08-14 13:42] LABS: ALBUMIN 2.5 g/dL (3.4-5.0); ANION GAP 12.1 mmol/L (8-16); BILIRUBIN - TOTAL 1.41 mg/dL (0.2-1.3); CALCIUM 8.2 mg/dL (8.5-10.1); CARBON DIOXIDE 27.7 mmol/L (21.0-32.0); POTASSIUM - SERUM 3.8 mmol/L (3.5-5.1); PROTEIN - SERUM 6.6 g/dL (6.4-8.2)
[2018-08-14 18:06] VITALS: BP 156/60; Ht 162.6 cm; Wt 57.7 kg
--- NOTE | 2018-08-14 19:13 | NUR ---
PT GIVEN SOAP SUDS ENEMA AT 1830, PT TOLERATED WELL. PT TO BEDSIDE COMMODE AT 1840. AT 1846 PT ABLE TO PASS SOFTBALL SIZED MOUND OF DARK STOOL. PT STATES RELIEF OF ABDOMINAL PRESSURE AT THIS TIME.
== END 2018-08-14 19:37 | disposition home or self-care (01) ==
LOC: D.ER 11:58 → D.OPS 11:58 → D.ER 16:50 → EDSTATUS 17:33 → D.OPS 17:34
PROVIDERS: Family Medicine
DX: K56.41 Fecal impaction (principal); Z01.812 Encounter for preprocedural laboratory examination

== ENCOUNTER 2018-08-26 19:50 | Inpatient (IN) | payer MEDICARE ==
[~2018-08-26] VITALS: Ht 162.6 cm; Wt 52.8 kg
[2018-08-26] MEDS ORDERED: AMIODARONE HCL200 MG PO (19:57)
[2018-08-26] MEDS ORDERED: MERIBIN5 MG PO (19:57)
[2018-08-26] MEDS ORDERED: ZYRTEC10 MG PO (19:57)
[2018-08-26] MEDS ORDERED: METOPROLOL TART25 MG PO (19:59)
[2018-08-26] MEDS ORDERED: ULTRAM50 MG PO (20:00)
[2018-08-26 20:30] LABS: BASOPHILS 0.1 % (0-2); EOSINOPHILS 0.2 % (0-7); HEMATOCRIT 36.7 % (36.0-48.0); IMMATURE GRANULOCYTES 0.2 % (0-5); LYMPHOCYTES 7.3 % (15-50); MCH 31.2 pg (26.0-34.0); MCHC 32.7 g/dL (31.0-37.0); MCV 95.3 fL (80.0-100.0); MEAN PLATELET VOLUME 10.3 fL (7.4-10.4); MONOCYTES 8.4 % (2-11); NEUTROPHILS 83.8 % (40-80); RBC 3.85 10x6/uL (4.00-5.40); RDW 15.2 % (11.5-14.5); WBC 12.5 10x3/uL (4.8-10.8)
[2018-08-26 20:31] LABS: PLATELET COUNT 137 10x3/uL (130-400)
[2018-08-26 20:43] LABS: ALKALINE PHOSPHATASE 180 U/L (46-116); ALT (SGPT) 28 U/L (10-68); BILIRUBIN - TOTAL 0.99 mg/dL (0.2-1.3); CALC OSMOLALITY 281 mosm/kg (275-300); CALCIUM 7.7 mg/dL (8.5-10.1); CARBON DIOXIDE 29.3 mmol/L (21.0-32.0); CHLORIDE - SERUM 101 mmol/L (98-107); GLUCOSE 109 mg/dL (74-106); POTASSIUM - SERUM 3.9 mmol/L (3.5-5.1); PROTEIN - SERUM 5.4 g/dL (6.4-8.2); SODIUM 137 mmol/L (136-145); UREA NITROGEN 31 mg/dL (7-18); eGFR NON AFRICAN AMERICAN 56 mL/min (90-120)
[2018-08-26 21:01] LABS: CKMB 3.3 U/L (0.0-3.6); CREATINE KINASE 230 UL (21-215)
[2018-08-26 21:05] LABS: TROPONIN-I 0.722 ng/mL (0.000-0.060)
[2018-08-26 21:25] LABS: APPEARANCE CLOUDY (CLEAR); BILIRUBIN NEGATIVE (NEGATIVE); COLOR YELLOW (YELLOW); GLUCOSE NEGATIVE (NEGATIVE); KETONE NEGATIVE (NEGATIVE); NITRITE NEGATIVE (NEGATIVE); PROTEIN 2+ mg/dL (NEGATIVE); SPECIFIC GRAVITY 1.025 (1.005-1.020); UROBILINOGEN NORMAL (NORMAL); WHITE CELLS - URINE >50 /hpf (0-5)
[2018-08-26 21:26] LABS: AMORPHOUS SEDIMENT <1+ /lpf (NONE SEEN); BACTERIA MANY /hpf (NONE SEEN); EPITHELIAL CELLS 0-5 /hpf (0-5); RED CELLS - URINE 0-5 /hpf (0-5)
[2018-08-26 21:28] LABS: UDS - AMPHET NEGATIVE QUAL (NEGATIVE); UDS - BARB NEGATIVE QUAL (NEGATIVE); UDS - BENZO NEGATIVE QUAL (NEGATIVE); UDS - COCAINE NEGATIVE QUAL (NEGATIVE); UDS - OPIATE NEGATIVE QUAL (NEGATIVE); UDS - PCP NEGATIVE QUAL (NEGATIVE); UDS - THC NEGATIVE QUAL (NEGATIVE)
[2018-08-26 21:31] LABS: MAGNESIUM - SERUM 2.1 mg/dL (1.8-2.4); THYROID STIMULATING HORMONE 10.38 uIU/mL (0.36-3.74)
[2018-08-26 22:37] VITALS: BP 127/65; BMI 22.4
[2018-08-26 23:55] VITALS: BP 127/65
[2018-08-27 03:55] VITALS: BP 127/62
[2018-08-27 09:40] VITALS: BP 143/65
[2018-08-27 14:30] VITALS: BP 134/61
[2018-08-27 15:44] LABS: CKMB 2.1 U/L (0.0-3.6); CREATINE KINASE 157 UL (21-215)
[2018-08-27 17:53] VITALS: BP 142/85
[2018-08-27 20:00] VITALS: BP 170/71
[2018-08-27 20:53] LABS: CKMB 1.3 U/L (0.0-3.6); CREATINE KINASE 118 UL (21-215)
[2018-08-27 21:05] LABS: TROPONIN-I 0.589 ng/mL (0.000-0.060)
[2018-08-28] VITALS: BP 122/58
[2018-08-28 04:00] VITALS: BP 119/59
[2018-08-28 04:47] LABS: BASOPHILS 0.1 % (0-2); EOSINOPHILS 0.6 % (0-7); HEMATOCRIT 34.4 % (36.0-48.0); HEMOGLOBIN 11.2 g/dL (12-16); IMMATURE GRANULOCYTES 0.4 % (0-5); LYMPHOCYTES 7.7 % (15-50); MCHC 32.6 g/dL (31.0-37.0); MCV 95.3 fL (80.0-100.0); MONOCYTES 9.9 % (2-11); NEUTROPHILS 81.3 % (40-80); PLATELET COUNT 127 10x3/uL (130-400); RBC 3.61 10x6/uL (4.00-5.40); RDW 15.4 % (11.5-14.5)
[2018-08-28 05:00] LABS: WBC 8.2 10x3/uL (4.8-10.8)
[2018-08-28 05:28] LABS: ALBUMIN 1.5 g/dL (3.4-5.0); ALKALINE PHOSPHATASE 143 U/L (46-116); BILIRUBIN - TOTAL 0.59 mg/dL (0.2-1.3); CALCIUM 7.2 mg/dL (8.5-10.1); CARBON DIOXIDE 33.9 mmol/L (21.0-32.0); CHLORIDE - SERUM 101 mmol/L (98-107); CKMB 0.8 U/L (0.0-3.6); CREATINE KINASE 89 UL (21-215); CREATININE - SERUM 0.9 mg/dL (0.6-1.3); GLUCOSE 119 mg/dL (74-106); PHOSPHOROUS 2.6 mg/dL (2.5-4.9); PROTEIN - SERUM 4.7 g/dL (6.4-8.2); SODIUM 139 mmol/L (136-145); T4 THYROXIN - FREE 0.98 ng/dL (0.76-1.46); THYROID STIMULATING HORMONE 8.47 uIU/mL (0.36-3.74); eGFR NON AFRICAN AMERICAN 63 mL/min (90-120)
[2018-08-28 05:30] LABS: CALC OSMOLALITY 282 mosm/kg (275-300); MAGNESIUM - SERUM 1.5 mg/dL (1.8-2.4); UREA NITROGEN 23 mg/dL (7-18)
[2018-08-28 05:31] LABS: ALT (SGPT) 20 U/L (10-68); POTASSIUM - SERUM 2.7 mmol/L (3.5-5.1); TROPONIN-I 0.625 ng/mL (0.000-0.060)
[2018-08-28 08:37] VITALS: BP 145/67
[2018-08-28 11:28] VITALS: BP 102/55
[2018-08-28 12:33] VITALS: Ht 162.6 cm; Wt 52.8 kg
[2018-08-28 15:43] VITALS: BP 118/65
--- NOTE | 2018-08-28 15:53 | MORECARE ---
CASE MANAGEMENT DISCHARGE SUMMARY PATIENT: NATIVIDAD QUEZADA UNIT: [id number] ADM DATE: 08/26/18 AGE: 83 : 35 SEX: F ROOM/BED: D.[facility] AUTHOR: KOFFI CONDE PHYSICIAN: REFERRING PHYSICIAN: LYNETTE ATKINSON DO DATE OF SERVICE: 08/28/18 Discharge Plan Patient Name: NATIVIDAD QUEZADA [facility] [facility] 1935 Planned Disposition: Inpatient Rehab Anticipated Discharge Date: 08/29/18 Discharge Date: Expected LOS: 3 Initial Reviewer: [id number] Initial Review Date: 08/28/2018 Generated: 08/28/18 4:53 pm Comments DCP- Discharge Planning Updated by [id number]: Daisy Cota on 08/27/18 5:[address] CM CONSULT RECEIVED. PATIENT IS SOMEWHAT LETHARGIC BUT EASILY AWAKEN. SHE HAS HAD THREE TEST THIS PM AND PHYSICAL THERAPY EVAL. SHE IS TIRED. SHE WAS ADMITTED W/ WEAKNESS, CONFUSION AND LETHARGY. REPORTEDLY HAS UTI, CHRONIC SYSTOLIC HEART FAILURE AND PAF. RECENT HOSPITALIZATION ON ACUTE REHAB AT [facility]. SHE WAS DISCHARGED TO HOME WITH [employer] [facility] 07/11/2018 FROM ACUTE REHAB. PATIENT HAD ROLLATOR W/ SEAT AND HAND BRAKES. NURSE , RENEE, STATES HER FRIENDS AND ?? POA WERE TALKING ABOUT A DIFFERENT PLAN AT DISCHARGE. NO ONE AT THE BEDSIDE THIS AFTERNOON. SHE HAD CONSIDERED [facility] AND REHAB HER PREVIOUS ADMIT. CM WILL REVISIT IN AM TO DISCUSS PATIENT'S DISCHARGE PLAN. REQUEST MD ORDER FOR OT EVALUATION! Patient Name: NATIVIDAD QUEZADA Page 71428 at 1553 All edits/amendments must be made on the electronic document DICTATION DATE: 08/28/181551 R[employer]: KENNY 08/28/181551 RPT#: [id number] DC DATE: STATUS: ADM IN [facility] [address] [place] [address] END OF REPORT
--- NOTE | 2018-08-28 16:04 | MORECARE ---
CASE MANAGEMENT DISCHARGE SUMMARY PATIENT: NATIVIDAD QUEZADA UNIT: [id number] ADM DATE: 08/26/18 AGE: 83 : 35 SEX: F ROOM/BED: D.0297 AUTHOR: AMAYA,DOC PHYSICIAN: REFERRING PHYSICIAN: LYNETTE ATKINSON DO DATE OF SERVICE: 08/28/18 Discharge Plan Patient Name: NATIVIDAD QUEZADA Facility: [facility]:[place] : 1935 Planned Disposition: Inpatient Rehab Anticipated Discharge Date: 08/29/18 Discharge Date: Expected LOS: 3 Initial Reviewer: [email or web address] Initial Review Date: 08/28/2018 Generated: 08/28/18 5:04 pm Comments DCP- Discharge Planning Updated by [id number]: Daisy Cota on 08/27/18 5:[address] CM CONSULT RECEIVED. PATIENT IS SOMEWHAT LETHARGIC BUT EASILY AWAKEN. SHE HAS HAD THREE TEST THIS PM AND PHYSICAL THERAPY EVAL. SHE IS TIRED. SHE WAS ADMITTED W/ WEAKNESS, CONFUSION AND LETHARGY. REPORTEDLY HAS UTI, CHRONIC SYSTOLIC HEART FAILURE AND PAF. RECENT HOSPITALIZATION ON ACUTE REHAB AT [facility]. SHE WAS DISCHARGED TO HOME WITH [facility] 07/11/2018 FROM ACUTE REHAB. PATIENT HAD ROLLATOR W/ SEAT AND HAND BRAKES. NURSE , RENEE, STATES HER FRIENDS AND ?? POA WERE TALKING ABOUT A DIFFERENT PLAN AT DISCHARGE. NO ONE AT THE BEDSIDE THIS AFTERNOON. SHE HAD CONSIDERED [facility] AND REHAB HER PREVIOUS ADMIT. CM WILL REVISIT IN AM TO DISCUSS PATIENT'S DISCHARGE PLAN. REQUEST MD ORDER FOR OT EVALUATION! DCPIA - Discharge Planning Initial Assessment Updated by [email or web address]: Freddy Sotomayor on 08/28/18 3:54 pm * Is the patient Alert and Oriented? Yes * How many steps to enter\exit or inside your home? NONE * PCP DR. ATKINSON * Pharmacy [facility] [address] OR MAIL ORDER FOR [facility] * Preadmission Environment Home Alone * ADLs Independent * Equipment Elevated [place] Seat Grab Bars Rolling Walker Walker * Other Equipment NO MEDICAL EQUIPMENT PROVIDER PREFERENCE * List name and contact numbers for known caregivers / representatives who currently or will assist patient after discharge: ROMAN ELY, FRIEND, * Verbal permission to speak to the caregivers and representatives has been obtained from the patient. N/A * Community resources currently utilized None * Please name any agencies selected above. [facility], PHYSICAL AND OCCUPATIONAL THERAPY * Additional services required to return to the preadmission environment? Yes * Can the patient safely return to the preadmission environment? Yes * Has this patient been hospitalized within the prior 30 days at any hospital? Yes Last DP export: 08/28/18 2:53 p Patient Name: NATIVIDAD QUEZADA Page 66890 at 1604 All edits/amendments must be made on the electronic document DICTATION DATE: 08/28/181603 DIRECTOR MISSION: KENNY 08/28/18 160 RPT#: [id number] DC DATE: STATUS: ADM IN [facility] [address] [place] [address] END OF REPORT
--- NOTE | 2018-08-28 16:13 | MORECARE ---
CASE MANAGEMENT DISCHARGE SUMMARY PATIENT: NATIVIDAD QUEZADA UNIT: [id number] ADM DATE: 08/26/18 AGE: 83 : 35 SEX: F ROOM/BED: D.3007 AUTHOR: KOFFI CONDE PHYSICIAN: REFERRING PHYSICIAN: LYNETTE ATKINSON DO DATE OF SERVICE: 08/28/18 Discharge Plan Patient Name: NATIVIDAD QUEZADA [facility] [facility] 1935 Planned Disposition: Inpatient Rehab Anticipated Discharge Date: 08/29/18 Discharge Date: Expected LOS: 3 Initial Reviewer: [id number] Initial Review Date: 08/28/2018 Generated: 08/28/18 5:13 pm Comments DCP- Discharge Planning Updated by [email or web address]: Freddy Sotomayor on 08/28/18 3:[address] Patient Name: NATIVIDAD QUEZADA Encounter No: [id number] : 1935 Primary Insurance: [employer] [facility] Anticipated DC Date: 08-29-2018 Planned Disposition: Inpatient Rehab External Planned Provider: [facility] IN[facility]IENT REHAB DCP follow-up note: CM RECEIVED REHAB ORDER, MET WITH PT IN ROOM TO DISCUSS ORDER, DISCHARGE PLANNING AND NEEDS. CM DISCUSSED AVAILABILITY OF REHAB, LOCATIONS AND PROVIDERS. CM DISCUSSED BOTH INPATIENT AND GROUP HOME REHAB SERVICES. PT REPORTS HAVING BEEN FALLING AT HOME AND FEELS SHE NEEDS REHAB AGAIN. PT WOULD LIKE TO BE CONSIDERED FOR INPATIENT REHAB AT [facility] AND DOES NOT WANT TO CONSIDER GROUP HOME REHAB AT THIS TIME. PT DOES NOT WANT TO USE THE 20 SKILLED DAYS AND WANTS TO SAVE THEM IN CASE SHE NEEDS THEM LATER. PT REPORTS HAVING BEEN AT [facility] LAST YEAR AND THEY DID A GOOD JOB WITH REHAB THEN. IMPORTANT MESSAGE FROM MEDICARE PROVIDED AND EXPLAINED. CM WAITING INPATIENT REHAB PRESCREENING AND ADMISSION DETERMINATION FROM [facility] INPATIENT REHAB. SHELIA Knott DCP- Discharge Planning Updated by [id number]: Daisy Cota on 08/27/18 5:[address] CM CONSULT RECEIVED. PATIENT IS SOMEWHAT LETHARGIC BUT EASILY AWAKEN. SHE HAS HAD THREE TEST THIS PM AND PHYSICAL THERAPY EVAL. SHE IS TIRED. SHE WAS ADMITTED W/ WEAKNESS, CONFUSION AND LETHARGY. REPORTEDLY HAS UTI, CHRONIC SYSTOLIC HEART FAILURE AND PAF. RECENT HOSPITALIZATION ON ACUTE REHAB AT [facility]. SHE WAS DISCHARGED TO HOME WITH [facility] [employer] [facility] 07/11/2018 FROM ACUTE REHAB. PATIENT HAD ROLLATOR W/ SEAT AND HAND BRAKES. NURSE , RENEE, STATES HER FRIENDS AND ?? POA WERE TALKING ABOUT A DIFFERENT PLAN AT DISCHARGE. NO ONE AT THE BEDSIDE THIS AFTERNOON. SHE HAD CONSIDERED [facility] AND REHAB HER PREVIOUS ADMIT. CM WILL REVISIT IN AM TO DISCUSS PATIENT'S DISCHARGE PLAN. REQUEST MD ORDER FOR OT EVALUATION! DCPIA - Discharge Planning Initial Assessment Updated by [id number]: Freddy Sotomayor on 08/28/18 3:54 pm * Is the patient Alert and Oriented? Yes * How many steps to enter\exit or inside your home? NONE * PCP DR. ATKINSON * [facility] [address] OR MAIL ORDER FOR [facility] MAINTENANCE MEDS * Preadmission Environment Home Alone * ADLs Independent * Equipment Elevated [place] Seat Grab Bars Rolling Walker Walker * Other Equipment NO MEDICAL EQUIPMENT PROVIDER PREFERENCE * List name and contact numbers for known caregivers / representatives who currently or will assist patient after discharge: ROMAN ELY, FRIEND, * Verbal permission to speak to the caregivers and representatives has been obtained from the patient. N/A * Community resources currently utilized None * Please name any agencies selected above. [facility], PHYSICAL AND OCCUPATIONAL THERAPY * Additional services required to return to the preadmission environment? Yes * Can the patient safely return to the preadmission environment? Yes * Has this patient been hospitalized within the prior 30 days at any hospital? Yes Coverage Notice Reviewer: [id number] - Freddy Sotomayor Notice Issued Date-Time: 08/28/2018 13:30 Notice Type: IM Discharge Notice Notice Delivered To: Patient Relationship to Patient: Rn Clinical Resource Name: Delivery Method: HAND - Hand Delivered Ruth Days: Prior Verbal Notification: Recipient Understood Notice: Yes Recipient Signature: Yes Med Rec Note Co-signed by Attending: Coverage Notice Comment: Last DP export: 08/28/18 3:04 p Patient Name: NATIVIDAD QUEZADA Page 59667 at 1613 All edits/amendments must be made on the electronic document DICTATION DATE: 01/28/19 1613 REGISTERED MIDWIFE: DM 08/28/181612 RPT#: [id number] DC DATE: STATUS: ADM IN [facility] [address] [place] [address] END OF REPORT
--- NOTE | 2018-08-28 17:19 | MORECARE ---
CASE MANAGEMENT DISCHARGE SUMMARY PATIENT: NATIVIDAD QUEZADA UNIT: [id number] ADM DATE: 08/26/18 AGE: 83 : 35 SEX: F ROOM/BED: D.9457 AUTHOR: KOFFI OCNDE PHYSICIAN: REFERRING PHYSICIAN: LYNETTE ATKINSON DO DATE OF SERVICE: 08/28/18 Discharge Plan Patient Name: NATIVIDAD QUEZADA [facility] [facility] 1935 Planned Disposition: Inpatient Rehab Anticipated Discharge Date: 08/29/18 Discharge Date: Expected LOS: 3 Initial Reviewer: [id number] Initial Review Date: 08/28/2018 Generated: 08/28/18 6:19 pm Comments DCP- Discharge Planning Updated by [id number]: Freddy Sotomayor on 08/28/18 3:[address] Patient Name: NATIVIDAD QUEZADA Encounter No: [id number] : 1935 Primary Insurance: [employer] [facility] PF Anticipated DC Date: 08-29-2018 Planned Disposition: Inpatient Rehab External Planned Provider: [facility] INPATIENT REHAB DCP follow-up note: CM RECEIVED REHAB ORDER, MET WITH PT IN ROOM TO DISCUSS ORDER, DISCHARGE PLANNING AND NEEDS. CM DISCUSSED AVAILABILITY OF REHAB, LOCATIONS AND PROVIDERS. CM DISCUSSED BOTH INPATIENT AND [facility] REHAB SERVICES. PT REPORTS HAVING BEEN FALLING AT HOME AND FEELS SHE NEEDS REHAB AGAIN. PT WOULD LIKE TO BE CONSIDERED FOR INPATIENT REHAB AT [place] AND DOES NOT WANT TO CONSIDER [facility] REHAB AT THIS TIME. PT DOES NOT WANT TO USE THE 20 SKILLED DAYS AND WANTS TO SAVE THEM IN CASE SHE NEEDS THEM LATER. PT REPORTS HAVING BEEN AT [place] LAST YEAR AND THEY DID A GOOD JOB WITH REHAB THEN. IMPORTANT MESSAGE FROM MEDICARE PROVIDED AND EXPLAINED. CM WAITING INPATIENT REHAB PRESCREENING AND ADMISSION DETERMINATION FROM [facility] INPATIENT REHAB. SHELIA Knott DCP- Discharge Planning Updated by [id number]: Daisy Cota on 08/27/18 5:[address] CM CONSULT RECEIVED. PATIENT IS SOMEWHAT LETHARGIC BUT EASILY AWAKEN. SHE HAS HAD THREE TEST THIS PM AND PHYSICAL THERAPY EVAL. SHE IS TIRED. SHE WAS ADMITTED W/ WEAKNESS, CONFUSION AND LETHARGY. REPORTEDLY HAS UTI, CHRONIC SYSTOLIC HEART FAILURE AND PAF. RECENT HOSPITALIZATION ON ACUTE REHAB AT [facility]. SHE WAS DISCHARGED TO HOME WITH [facility] 07/11/2018 FROM ACUTE REHAB. PATIENT HAD ROLLATOR W/ SEAT AND HAND BRAKES. NURSE , RENEE, STATES HER FRIENDS AND ?? POA WERE TALKING ABOUT A DIFFERENT PLAN AT DISCHARGE. NO ONE AT THE BEDSIDE THIS AFTERNOON. SHE HAD CONSIDERED [facility] AND REHAB HER PREVIOUS ADMIT. CM WILL REVISIT IN AM TO DISCUSS PATIENT'S DISCHARGE PLAN. REQUEST MD ORDER FOR OT EVALUATION! DCPIA - Discharge Planning Initial Assessment Updated by [id number]: Freddy Sotomayor on 08/28/18 3:54 pm * Is the patient Alert and Oriented? Yes * How many steps to enter\exit or inside your home? NONE * PCP DR. ATKINSON * Pharmacy [facility] MAIL ORDER FOR FENCE GATE ASSEMBLER MAINTENANCE MEDS * Preadmission Environment Home Alone * ADLs Independent * Equipment Elevated [place] Seat Grab Bars Rolling Walker Walker * Other Equipment NO MEDICAL EQUIPMENT PROVIDER PREFERENCE * List name and contact numbers for known caregivers / representatives who currently or will assist patient after discharge: ROMAN ELY, FRIEND, * Verbal permission to speak to the caregivers and representatives has been obtained from the patient. N/A * Community resources currently utilized None * Please name any agencies selected above. [facility] HOME HEALTH, PHYSICAL AND OCCUPATIONAL THERAPY * Additional services required to return to the preadmission environment? Yes * Can the patient safely return to the preadmission environment? Yes * Has this patient been hospitalized within the prior 30 days at any hospital? Yes External Providers External Provider: [facility] Next Contact Date: 08/29/2018 Service Request Date: Service Type: Resolution: Reviewer: Comments: External Provider: [facility] Next Contact Date: 08/29/2018 Service Request Date: Service Type: Resolution: Reviewer: Comments: Coverage Notice Reviewer: [id number] - Freddy Sotomayor Notice Issued Date-Time: 08/28/2018 13:30 Notice Type: IM Discharge Notice Notice Delivered To: Patient Relationship to Patient: Telecommunicator Supervisor Name: Delivery Method: HAND - Hand Delivered Ruth Days: Prior Verbal Notification: Recipient Understood Notice: Yes Recipient Signature: Yes Med Rec Note Co-signed by Attending: Coverage Notice Comment: Last DP export: 1/28/19 3:13 p Patient Name: NATIVIDAD QUEZADA Page [id number] at 1719 All edits/amendments must be made on the electronic document DICTATION DATE: 08/28/181718 COSMETOLOGIST: KENNY 08/28/181718 RPT#: [id number] DC DATE: STATUS: ADM IN [facility] [address] [place] [address] END OF REPORT
--- NOTE | 2018-08-28 17:34 | MORECARE ---
CASE MANAGEMENT DISCHARGE SUMMARY PATIENT: NATIVIDAD QUEZADA UNIT: [id number] ADM DATE: 08/26/18 AGE: 83 : 35 SEX: F ROOM/BED: D.3539 AUTHOR: KOFFI CONDE PHYSICIAN: REFERRING PHYSICIAN: LYNETTE ATKINSON DO DATE OF SERVICE: 08/28/18 Discharge Plan Patient Name: NATIVIDAD QUEZADA [facility] [facility] 1935 Planned Disposition: Inpatient Rehab Anticipated Discharge Date: 08/29/18 Discharge Date: Expected LOS: 3 Initial Reviewer: [id number] Initial Review Date: 08/28/2018 Generated: 08/28/18 6:34 pm Comments DCP- Discharge Planning Updated by [id number]: Freddy Sotomayor on 08/28/18 4:[address] Patient Name: NATIVIDAD QUEZADA Encounter No: [id number] : 1935 Primary Insurance: [employer] CASSIE [employer] [facility] PFFS Anticipated DC Date: 08-29-2018 Planned Disposition: Inpatient Rehab External Planned Provider: [facility] INPATIENT REHAB DCP follow-up note: CM RECEIVED REHAB ORDER, MET WITH PT IN ROOM TO DISCUSS ORDER, DISCHARGE PLANNING AND NEEDS. CM DISCUSSED AVAILABILITY OF REHAB, LOCATIONS AND PROVIDERS. CM DISCUSSED BOTH INPATIENT AND PENITENTIARY REHAB SERVICES. PT REPORTS HAVING BEEN FALLING AT HOME AND FEELS SHE NEEDS REHAB AGAIN. PT WOULD LIKE TO BE CONSIDERED FOR INPATIENT REHAB AT [place] AND DOES NOT WANT TO CONSIDER PENITENTIARY REHAB AT THIS TIME. PT DOES NOT WANT TO USE THE 20 SKILLED DAYS AND WANTS TO SAVE THEM IN CASE SHE NEEDS THEM LATER. PT REPORTS HAVING BEEN AT [place] LAST YEAR AND THEY DID A GOOD JOB WITH REHAB THEN. IMPORTANT MESSAGE FROM MEDICARE PROVIDED AND EXPLAINED. CM WAITING INPATIENT REHAB PRESCREENING AND ADMISSION DETERMINATION FROM [facility] INPATIENT REHAB. Freddy Sotomayor, CASE MANAGEMENT Appended by Freddy Sotomayor on 08/28/2018 17:30 BUSINESS INTERN: CM RECEIVED ORDER FOR SHORT TERM REHAB PENITENTIARY OPTIONS FOR PT. CM RETURED TO PT'S ROOM, DISCUSSED PENITENTIARY REHAB OPTIONS, LOCATIONS AND PROVIDERS. PT STILL WANTS CONSIDERED FOR INPATIENT REHAB. PT WILL CONSIDER REHAB AT [facility] AND [facility] IF DECLINED BY [facility]. CHOICE SIGNED. CM FAXED REFERRALS TO THE [facility] AND [place] FOR REHAB CONSIDERATION SECOND CHOICE TO INPATIENT REHAB. CM WAITING INPATIENT REHAB PRESCREENING AND ADMISSION DETERMINATION FROM [facility] INPATIENT REHAB. CM WAITING ADMISSION DETERMINATIONS FROM THE [facility] AND [facility] PENITENTIARY [facility]. Freddy Sotomayor, CASE MANAGEMENT DCP- Discharge Planning Updated by [id number]: Daisy Ctoa on 08/27/18 5:[address] CM CONSULT RECEIVED. PATIENT IS SOMEWHAT LETHARGIC BUT EASILY AWAKEN. SHE HAS HAD THREE TEST THIS PM AND PHYSICAL THERAPY EVAL. SHE IS TIRED. SHE WAS ADMITTED W/ WEAKNESS, CONFUSION AND LETHARGY. REPORTEDLY HAS UTI, CHRONIC SYSTOLIC HEART FAILURE AND PAF. RECENT HOSPITALIZATION ON ACUTE REHAB AT [facility]. SHE WAS DISCHARGED TO HOME WITH [employer] 07/11/2018 FROM ACUTE REHAB. PATIENT HAD ROLLATOR W/ SEAT AND HAND BRAKES. NURSE , RENEE, STATES HER FRIENDS AND ?? POA WERE TALKING ABOUT A DIFFERENT PLAN AT DISCHARGE. NO ONE AT THE BEDSIDE THIS AFTERNOON. SHE HAD CONSIDERED [facility] AND REHAB HER PREVIOUS ADMIT. CM WILL REVISIT IN AM TO DISCUSS PATIENT'S DISCHARGE PLAN. REQUEST MD ORDER FOR OT EVALUATION! DCPIA - Discharge Planning Initial Assessment Updated by [id number]: Freddy Sotomayor on 08/28/18 3:54 pm * Is the patient Alert and Oriented? Yes * How many steps to enter\exit or inside your home? NONE * PCP DR. ATKINSON * Pharmacy [facility] [address] OR MAIL ORDER FOR DETENTION MAINTENANCE MEDS * Preadmission Environment Home Alone * ADLs Independent * Equipment Elevated [place] Seat Grab Bars Rolling Walker Walker * Other Equipment NO MEDICAL EQUIPMENT PROVIDER PREFERENCE * List name and contact numbers for known caregivers / representatives who currently or will assist patient after discharge: ROMAN SOLIS, FRIEND, * Verbal permission to speak to the caregivers and representatives has been obtained from the patient. N/A * Community resources currently utilized None * Please name any agencies selected above. [facility] HOME HEALTH, PHYSICAL AND OCCUPATIONAL THERAPY * Additional services required to return to the preadmission environment? Yes * Can the patient safely return to the preadmission environment? Yes * Has this patient been hospitalized within the prior 30 days at any hospital? Yes Coverage Notice Reviewer: [id number] Maura Sotomayor Notice Issued Date-Time: 08/28/2018 13:30 Notice Type: IM Discharge Notice Notice Delivered To: Patient Relationship to Patient: Water Hydrant Installer Name: Delivery Method: HAND - Hand Delivered Ruth Days: Prior Verbal Notification: Recipient Understood Notice: Yes Recipient Signature: Yes Med Rec Note Co-signed by Attending: Coverage Notice Comment: Reviewer: [id number] Sotomayor Notice Issued Date-Time: 08/28/2018 17:00 Notice Type: Patient Choice Letter Notice Delivered To: Patient Relationship to Patient: Water Hydrant Installer Name: Delivery Method: HAND - Hand Delivered Ruth Days: Prior Verbal Notification: Recipient Understood Notice: Yes Recipient Signature: Yes Med Rec Note Co-signed by Attending: Coverage Notice Comment: [facility] IF DECLINED BY IP REHAB Last DP export: 08/28/18 4:19 p Patient Name: NATIVIDAD QUEZADA Page [id number] at 1734 All edits/amendments must be made on the electronic document DICTATION DATE: 08/28/181733 BRASS AND WIND INSTRUMENT REPAIRER: KENNY 08/28/181733 RPT#: [id number] DC DATE: STATUS: ADM IN [facility] [address] [place] [address] END OF REPORT
[2018-08-28 20:00] VITALS: BP 126/60
[2018-08-29] VITALS: BP 119/69
[2018-08-29 04:00] VITALS: BP 121/72
[2018-08-29 04:26] LABS: BASOPHILS 0.1 % (0-2); EOSINOPHILS 0.7 % (0-7); HEMATOCRIT 33.2 % (36.0-48.0); HEMOGLOBIN 10.7 g/dL (12-16); IMMATURE GRANULOCYTES 0.3 % (0-5); LYMPHOCYTES 10.3 % (15-50); MCH 30.5 pg (26.0-34.0); MCHC 32.2 g/dL (31.0-37.0); MCV 94.6 fL (80.0-100.0); MEAN PLATELET VOLUME 9.8 fL (7.4-10.4); MONOCYTES 10.6 % (2-11); PLATELET COUNT 138 10x3/uL (130-400); RBC 3.51 10x6/uL (4.00-5.40); RDW 15.2 % (11.5-14.5); WBC 7.1 10x3/uL (4.8-10.8)
[2018-08-29 04:50] LABS: ALBUMIN 1.3 g/dL (3.4-5.0); BILIRUBIN - TOTAL 0.4 mg/dL (0.2-1.3); CARBON DIOXIDE 32.3 mmol/L (21.0-32.0); CREATININE - SERUM 0.8 mg/dL (0.6-1.3); MAGNESIUM - SERUM 1.4 mg/dL (1.8-2.4); PHOSPHOROUS 2.6 mg/dL (2.5-4.9); PROTEIN - SERUM 4.3 g/dL (6.4-8.2)
[2018-08-29 04:57] LABS: POTASSIUM - SERUM 3.3 mmol/L (3.5-5.1)
[2018-08-29 04:58] LABS: CALCIUM 6.8 mg/dL (8.5-10.1)
[2018-08-29 08:00] VITALS: BP 130/56
[2018-08-29 12:06] VITALS: BP 118/56
--- NOTE | 2018-08-29 13:21 | MORECARE ---
CASE MANAGEMENT DISCHARGE SUMMARY PATIENT: NATIVIDAD QUEZADA UNIT: [id number] ADM DATE: 08/26/18 AGE: 83 : 35 SEX: F ROOM/BED: D.8795 AUTHOR: KOFFI CONDE PHYSICIAN: REFERRING PHYSICIAN: LYNETTE ATKINSON DO DATE OF SERVICE: 08/29/18 Discharge Plan Patient Name: NATIVIDAD QUEZADA [facility] [facility] 1935 [facility] Disposition[facility] Anticipated Discharge Date: 08/29/18 Discharge Date: Expected LOS: 3 Initial Reviewer: [id number] Initial Review Date: 08/28/2018 Generated: 08/29/18 2:21 pm Comments DCP- Discharge Planning Updated by [id number]: Freddy Sotomayor on 08/28/18 4:[address] Patient Name: NATIVIDAD QUEZADA Encounter No: [id number] : 1935 Primary Insurance: [employer] CASSIE [employer] [facility] PF Anticipated DC Date: 08-29-2018 Planned Disposition: Inpatient Rehab External Planned Provider: [facility] INPATIENT REHAB DCP follow-up note: CM RECEIVED REHAB ORDER, MET WITH PT IN ROOM TO DISCUSS ORDER, DISCHARGE PLANNING AND NEEDS. CM DISCUSSED AVAILABILITY OF REHAB, LOCATIONS AND PROVIDERS. CM DISCUSSED BOTH INPATIENT AND HALF-WAY REHAB SERVICES. PT REPORTS HAVING BEEN FALLING AT HOME AND FEELS SHE NEEDS REHAB AGAIN. PT WOULD LIKE TO BE CONSIDERED FOR INPATIENT REHAB AT [place] AND DOES NOT WANT TO CONSIDER HALF-WAY REHAB AT THIS TIME. PT DOES NOT WANT TO USE THE 20 SKILLED DAYS AND WANTS TO SAVE THEM IN CASE SHE NEEDS THEM LATER. PT REPORTS HAVING BEEN AT [place] LAST YEAR AND THEY DID A GOOD JOB WITH REHAB THEN. IMPORTANT MESSAGE FROM MEDICARE PROVIDED AND EXPLAINED. CM WAITING INPATIENT REHAB PRESCREENING AND ADMISSION DETERMINATION FROM [facility] INPATIENT REHAB. Freddy Sotomayor, CASE MANAGEMENT Appended by Freddy Sotomayor on 08/28/2018 17:30 FIELD RADIO TECHNICIAN: CM RECEIVED ORDER FOR SHORT TERM REHAB HALF-WAY OPTIONS FOR PT. CM RETURED TO PT'S ROOM, DISCUSSED HALF-WAY REHAB OPTIONS, LOCATIONS AND PROVIDERS. PT STILL WANTS CONSIDERED FOR INPATIENT REHAB. PT WILL CONSIDER REHAB AT [facility] AND [facility] IF DECLINED BY [facility]. CHOICE SIGNED. CM FAXED REFERRALS TO THE [facility] AND [place] FOR REHAB CONSIDERATION SECOND CHOICE TO INPATIENT REHAB. CM WAITING INPATIENT REHAB PRESCREENING AND ADMISSION DETERMINATION FROM [facility] INPATIENT REHAB. CM WAITING ADMISSION DETERMINATIONS FROM THE [facility] AND [facility] HALF-WAY [facility]. Freddy Sotomayor, CASE MANAGEMENT DCP- Discharge Planning Updated by [email or web address]: Daisy Cota on 08/27/18 5:[address] CM CONSULT RECEIVED. PATIENT IS SOMEWHAT LETHARGIC BUT EASILY AWAKEN. SHE HAS HAD THREE TEST THIS PM AND PHYSICAL THERAPY EVAL. SHE IS TIRED. SHE WAS ADMITTED W/ WEAKNESS, CONFUSION AND LETHARGY. REPORTEDLY HAS UTI, CHRONIC SYSTOLIC HEART FAILURE AND PAF. RECENT HOSPITALIZATION ON ACUTE REHAB AT [facility]. SHE WAS DISCHARGED TO HOME WITH [employer] 07/11/2018 FROM ACUTE REHAB. PATIENT HAD ROLLATOR W/ SEAT AND HAND BRAKES. NURSE , RENEE, STATES HER FRIENDS AND ?? POA WERE TALKING ABOUT A DIFFERENT PLAN AT DISCHARGE. NO ONE AT THE BEDSIDE THIS AFTERNOON. SHE HAD CONSIDERED [facility] AND REHAB HER PREVIOUS ADMIT. CM WILL REVISIT IN AM TO DISCUSS PATIENT'S DISCHARGE PLAN. REQUEST MD ORDER FOR OT EVALUATION! DCPIA - Discharge Planning Initial Assessment Updated by [id number]: Freddy Sotomayor on 08/28/18 3:54 pm * Is the patient Alert and Oriented? Yes * How many steps to enter\exit or inside your home? NONE * PCP DR. ATKINSON * Pharmacy [facility] [address] OR MAIL ORDER FOR RELATIONSHIP MANAGER MAINTENANCE MEDS * Preadmission Environment Home Alone * ADLs Independent * Equipment Elevated [place] Seat Grab Bars Rolling Walker Walker * Other Equipment NO MEDICAL EQUIPMENT PROVIDER PREFERENCE * List name and contact numbers for known caregivers / representatives who currently or will assist patient after discharge: ROMAN SOLIS, FRIEND, * Verbal permission to speak to the caregivers and representatives has been obtained from the patient. N/A * Community resources currently utilized None * Please name any agencies selected above. [facility] HOME HEALTH, PHYSICAL AND OCCUPATIONAL THERAPY * Additional services required to return to the preadmission environment? Yes * Can the patient safely return to the preadmission environment? Yes * Has this patient been hospitalized within the prior 30 days at any hospital? Yes Coverage Notice Reviewer: [id number] Maura Sotomayor Notice Issued Date-Time: 08/28/2018 13:30 Notice Type: IM Discharge Notice Notice Delivered To: Patient Relationship to Patient: Merchant Banker Name: Delivery Method: HAND - Hand Delivered Ruth Days: Prior Verbal Notification: Recipient Understood Notice: Yes Recipient Signature: Yes Med Rec Note Co-signed by Attending: Coverage Notice Comment: Reviewer: [id number] Sotomayor Notice Issued Date-Time: 08/28/2018 17:00 Notice Type: Patient Choice Letter Notice Delivered To: Patient Relationship to Patient: Merchant Banker Name: Delivery Method: HAND - Hand Delivered Ruth Days: Prior Verbal Notification: Recipient Understood Notice: Yes Recipient Signature: Yes Med Rec Note Co-signed by Attending: Coverage Notice Comment: [facility] OR [facility] IF DECLINED BY IP REHAB Last DP export: 08/28/18 4:34 p Patient Name: NATIVIDAD QUEZADA Page [id number] at 1321 All edits/amendments must be made on the electronic document DICTATION DATE: 08/29/18 1321 DATA CAPTURE SPECIALIST: KENNY 08/29/18 1321 RPT#: [id number] DC DATE: STATUS: ADM IN [facility] [address] [place] [address] END OF REPORT
--- NOTE | 2018-08-29 13:29 | MORECARE ---
CASE MANAGEMENT DISCHARGE SUMMARY PATIENT: NATIVIDAD QUEZADA UNIT: [id number] ADM DATE: 08/26/18 AGE: 83 : 35 SEX: F ROOM/BED: D.9253 AUTHOR: KOFFI CONDE PHYSICIAN: REFERRING PHYSICIAN: LYNETTE ATKINSON DO DATE OF SERVICE: 08/29/18 Discharge Plan Patient Name: NATIVIDAD QUEZADA Facility: [facility]:[place] : 1935 Planned Disposition: [facility] Facility Anticipated Discharge Date: 08/29/18 Discharge Date: Expected LOS: 3 Initial Reviewer: [id number] Initial Review Date: 08/28/2018 Generated: 08/29/18 2:29 pm Comments DCP- Discharge Planning Updated by [id number]: Freddy Sotomayor on 08/29/18 12:[address] Patient Name: NATIVIDAD QUEZADA Admission Status: ER Accout number: [id number] Admission Date: 08-26-2018 : 1935 Admission Diagnosis: Attending: Lynette Atkinson Current LOS: 3 Anticipated DC Date: 08-29-2018 Planned Disposition: [facility] Facility Primary Insurance: [facility] PLANNED EXTERNAL PROVIDER: [facility] OR [facility], MEDICARE REHAB BED Discharge Planning Comments: CM RECEIVED REQUEST TO MEET WITH PT AND [employer] MEMBERS IN ROOM. PT INFORMED CM THAT IT IS OK TO DISCUSS HER CARE WITH THE [facility] THEY ARE ASSISTING HER WITH DISCHARGE PLANNING. [employer] MEMBERS INFORMED CM THAT PT IS PROBABLY NOT LOOKING AT GOING BACK HOME AND IS LOOKING MORE INTO RETIREMENT NURSING CARE AT THE ALF. THEY UNDERSTAND THIS TAKES FINANCIAL ARRANGEMENTS AND ARE GOING TO BE ASSISTING PT NEEDED WITH THE ARRANGEMENTS. PT REPORTS THIS TO BE WHAT SHE WANTS. PT STILL IN AGREEMENT WITH PLACEMENT AT [facility] OR [facility] FOR REHAB AND WILL DISCUSS RETIREMENT CARE WITH FACILITY STAFF AT A LATER TIME. PT NOR [employer] MEMBERS HAD FURHTER QUESTIONS. CM SPOKE TO KAROLYN OF INPATIENT REHAB AND NOTIFIED OF ABOVE INFORMATION; KAROLYN OF INPATIENT REHAB SUGGESTED THAT HALF-WAY WOULD BE MORE APPROPRIATE AND IN LINE WITH PT'S RETIREMENT CARE GOALS. CM SPOKE TO MARYJO OF THE [facility], THEY HAVE RECEIVED REFERRAL AND ARE SCREENING FOR ADMISSION. CM RECEIVED CALL FROM SID OF [facility] WHO HAS RECEIVED REFERRAL AND IS SUBMITTING TO INSURANCE FOR AUTHORIZATION FOR REHAB SERVICES. CM WAITING ADMISSION DETERMINATION FROM THE [facility] HAS SUBMITTED TO PT'S INSURANCE COMPANY FOR AUTHORIZATION FOR REHAB SERVICES. SHELIA Knott MANAGEMENT DCP- Discharge Planning Updated by [id number]: Freddy Sotomayor on 08/28/18 4:[address] Patient Name: NATIVIDAD QUEZADA Encounter No: [id number] : 1935 Primary Insurance: [employer] CASSIE [employer] [facility] PFFS Anticipated DC Date: 08-29-2018 Planned Disposition: Inpatient Rehab External Planned Provider: [facility] INPATIENT REHAB DCP follow-up note: CM RECEIVED REHAB ORDER, MET WITH PT IN ROOM TO DISCUSS ORDER, DISCHARGE PLANNING AND NEEDS. CM DISCUSSED AVAILABILITY OF REHAB, LOCATIONS AND PROVIDERS. CM DISCUSSED BOTH INPATIENT AND HALF-WAY REHAB SERVICES. PT REPORTS HAVING BEEN FALLING AT HOME AND FEELS SHE NEEDS REHAB AGAIN. PT WOULD LIKE TO BE CONSIDERED FOR INPATIENT REHAB AT [place] AND DOES NOT WANT TO CONSIDER HALF-WAY REHAB AT THIS TIME. PT DOES NOT WANT TO USE THE 20 SKILLED DAYS AND WANTS TO SAVE THEM IN CASE SHE NEEDS THEM LATER. PT REPORTS HAVING BEEN AT [facility] LAST YEAR AND THEY DID A GOOD JOB WITH REHAB THEN. IMPORTANT MESSAGE FROM MEDICARE PROVIDED AND EXPLAINED. CM WAITING INPATIENT REHAB PRESCREENING AND ADMISSION DETERMINATION FROM [facility] INPATIENT REHAB. Freddy Sotomayor CASE MANAGEMENT Appended by Freddy Sotomayor on 08/28/2018 17:30 PASTEURIZER: CM RECEIVED ORDER FOR SHORT TERM REHAB HALF-WAY OPTIONS FOR PT. CM RETURED TO PT'S ROOM, DISCUSSED HALF-WAY REHAB OPTIONS, LOCATIONS AND PROVIDERS. PT STILL WANTS CONSIDERED FOR INPATIENT REHAB. PT WILL CONSIDER REHAB AT [facility] AND [facility] IF DECLINED BY [facility]. CHOICE SIGNED. CM FAXED REFERRALS TO [facility] AND [facility] FOR REHAB CONSIDERATION SECOND CHOICE TO INPATIENT REHAB. CM WAITING INPATIENT REHAB PRESCREENING AND ADMISSION DETERMINATION FROM [facility] INPATIENT REHAB. CM WAITING ADMISSION DETERMINATIONS FROM [facility] AND [facility] HALF-WAY FACILITIES. Freddy Sotomayor CASE MANAGEMENT DCP- Discharge Planning Updated by [id number]: Daisy Cota on 08/27/18 5:[address] CM CONSULT RECEIVED. PATIENT IS SOMEWHAT LETHARGIC BUT EASILY AWAKEN. SHE HAS HAD THREE TEST THIS PM AND PHYSICAL THERAPY EVAL. SHE IS TIRED. SHE WAS ADMITTED W/ WEAKNESS, CONFUSION AND LETHARGY. REPORTEDLY HAS UTI, CHRONIC SYSTOLIC HEART FAILURE AND PAF. RECENT HOSPITALIZATION ON ACUTE REHAB AT [facility]. SHE WAS DISCHARGED TO HOME WITH [employer] [facility] 07/11/2018 FROM ACUTE REHAB. PATIENT HAD ROLLATOR W/ SEAT AND HAND BRAKES. NURSE , RENEE, STATES HER FRIENDS AND ?? POA WERE TALKING ABOUT A DIFFERENT PLAN AT DISCHARGE. NO ONE AT THE BEDSIDE THIS AFTERNOON. SHE HAD CONSIDERED [facility] AND REHAB HER PREVIOUS ADMIT. CM WILL REVISIT IN AM TO DISCUSS PATIENT'S DISCHARGE PLAN. REQUEST MD ORDER FOR OT EVALUATION! DCPIA - Discharge Planning Initial Assessment Updated by [email or web address]: Freddy Sotomayor on 08/28/18 3:54 pm * Is the patient Alert and Oriented? Yes * How many steps to enter\exit or inside your home? NONE * PCP DR. ATKINSON * Pharmacy [facility] [address] OR MAIL ORDER FOR DRUM LOADER AND UNLOADER MAINTENANCE MEDS * Preadmission Environment Home Alone * ADLs Independent * Equipment Elevated [place] Seat Grab Bars Rolling Walker Walker * Other Equipment NO MEDICAL EQUIPMENT PROVIDER PREFERENCE * List name and contact numbers for known caregivers / representatives who currently or will assist patient after discharge: ROMAN MARTENCER, FRIEND, * Verbal permission to speak to the caregivers and representatives has been obtained from the patient. N/A * Community resources currently utilized None * Please name any agencies selected above. [facility] HOME HEALTH, PHYSICAL AND OCCUPATIONAL THERAPY * Additional services required to return to the preadmission environment? Yes * Can the patient safely return to the preadmission environment? Yes * Has this patient been hospitalized within the prior 30 days at any hospital? Yes Coverage Notice Reviewer: [id number] Maura Sotomayor Notice Issued Date-Time: 08/28/2018 13:30 Notice Type: IM Discharge Notice Notice Delivered To: Patient Relationship to Patient: Slab Lifting Engineer Name: Delivery Method: HAND - Hand Delivered Ruth Days: Prior Verbal Notification: Recipient Understood Notice: Yes Recipient Signature: Yes Med Rec Note Co-signed by Attending: Coverage Notice Comment: Reviewer: [id number] Maura Sotomayor Notice Issued Date-Time: 08/28/2018 17:00 Notice Type: Patient Choice Letter Notice Delivered To: Patient Relationship to Patient: Slab Lifting Engineer Name: Delivery Method: HAND - Hand Delivered Ruth Days: Prior Verbal Notification: Recipient Understood Notice: Yes Recipient Signature: Yes Med Rec Note Co-signed by Attending: Coverage Notice Comment: [facility] IF DECLINED BY IP REHAB Last DP export: 08/29/18 12:21 p Patient Name: NATIVIDAD QUEZADA Page [id number] at 1329 All edits/amendments must be made on the electronic document DICTATION DATE: 08/29/18 1329 MATERIAL COORDINATOR: KENNY 08/29/18 1329 RPT#: [id number] DC DATE: STATUS: ADM IN [facility] [address] [place] [address] END OF REPORT
[2018-08-29 15:17] VITALS: BP 119/57
[2018-08-29 20:00] VITALS: BP 136/65
[2018-08-30] VITALS: BP 132/71
[2018-08-30 04:00] VITALS: BP 151/73
[2018-08-30 04:42] LABS: BASOPHILS 0.1 % (0-2); EOSINOPHILS 0.8 % (0-7); HEMATOCRIT 33.9 % (36.0-48.0); HEMOGLOBIN 11.2 g/dL (12-16); IMMATURE GRANULOCYTES 0.3 % (0-5); MCH 31.1 pg (26.0-34.0); MCV 94.2 fL (80.0-100.0); MONOCYTES 10.2 % (2-11); NEUTROPHILS 76.6 % (40-80); RDW 15.3 % (11.5-14.5); WBC 7.7 10x3/uL (4.8-10.8)
[2018-08-30 04:52] LABS: PLATELET COUNT 176 10x3/uL (130-400)
[2018-08-30 05:18] LABS: ALBUMIN 1.4 g/dL (3.4-5.0); ANION GAP 8.8 mmol/L (8-16); BILIRUBIN - TOTAL 0.41 mg/dL (0.2-1.3); CALCIUM 7.2 mg/dL (8.5-10.1); CREATININE - SERUM 0.8 mg/dL (0.6-1.3); MAGNESIUM - SERUM 1.4 mg/dL (1.8-2.4); PHOSPHOROUS 2.2 mg/dL (2.5-4.9); POTASSIUM - SERUM 3.8 mmol/L (3.5-5.1); PROTEIN - SERUM 4.7 g/dL (6.4-8.2)
[2018-08-30 08:58] VITALS: BP 123/63
--- NOTE | 2018-08-30 11:16 | MORECARE ---
CASE MANAGEMENT DISCHARGE SUMMARY PATIENT: NATIVIDAD QUEZADA UNIT: [id number] ADM DATE: 08/26/18 AGE: 83 : 35 SEX: F ROOM/BED: D.6057 AUTHOR: KOFFI CONDE PHYSICIAN: REFERRING PHYSICIAN: JENARO ATKINSON DO DATE OF SERVICE: 08/30/18 Discharge Plan Patient Name: NATIVIDAD QUEZADA Facility: [facility]:[place] : 1935 Planned Disposition: Group Home Facility Anticipated Discharge Date: 08/29/18 Discharge Date: Expected LOS: 3 Initial Reviewer: [id number] Initial Review Date: 08/28/2018 Generated: 08/30/18 12:16 pm Comments DCP- Discharge Planning Updated by [id number]: Freddy Sotomayor on 08/30/18 10:[address] Patient Name: NATIVIDAD QUEZADA Encounter No: [id number] : 1935 Primary Insurance: [employer] [facility]S Anticipated DC Date: 08-29-2018 Planned Disposition: Group Home Facility External Planned Provider: [facility] Discharge Planning Comments: CM FAXED UPDATES TO SID AT [facility], AND MARYJO AT [facility], . CM WAITING ADMISSION DETERMINATION FROM THE [facility] HAS SUBMITTED TO 'S INSURANCE COMPANY FOR AUTHORIZATION FOR REHAB SERVICES. SHELIA Knott DCP- Discharge Planning Updated by [id number]: Freddy Sotomayor on 08/29/18 12:[address] Patient Name: NATIVIDAD QUEZADA Admission Status: ER Accout number: [id number] Admission Date: 08-26-2018 : 1935 Admission Diagnosis: Attending: Jenaro Atkinson Current LOS: 3 Anticipated DC Date: 08-29-2018 Planned Disposition: Group Home Facility Primary Insurance: [employer] [facility] P[facility]S PLANNED EXTERNAL PROVIDER: [facility]AB BED Discharge Planning Comments: CM RECEIVED REQUEST TO MEET WITH PT AND HOLINESS MEMBERS IN ROOM. PT INFORMED CM THAT IT IS OK TO DISCUSS HER CARE WITH THE HOLINESS THEY ARE ASSISTING HER WITH DISCHARGE PLANNING. HOLINESS MEMBERS INFORMED CM THAT PT IS PROBABLY NOT LOOKING AT GOING BACK HOME AND IS LOOKING MORE INTO NEUROPSYCHOLOGIST NURSING CARE AT THE [facility]. THEY UNDERSTAND THIS TAKES FINANCIAL ARRANGEMENTS AND ARE GOING TO BE ASSISTING PT NEEDED WITH THE ARRANGEMENTS. PT REPORTS THIS TO BE WHAT SHE WANTS. PT STILL IN AGREEMENT WITH PLACEMENT AT [facility] OR [facility] FOR REHAB AND WILL DISCUSS SNF CARE WITH FACILITY STAFF AT A LATER TIME. PT NOR HOLINESS MEMBERS HAD FURHTER QUESTIONS. CM SPOKE TO KAROLYN OF INPATIENT REHAB AND NOTIFIED OF ABOVE INFORMATION; KAROLYN OF INPATIENT REHAB SUGGESTED THAT CUSTODIAL WOULD BE MORE APPROPRIATE AND IN LINE WITH PT'S NEUROPSYCHOLOGIST CARE GOALS. CM SPOKE TO MARYJO OF [facility], THEY HAVE RECEIVED REFERRAL AND ARE SCREENING FOR ADMISSION. CM RECEIVED CALL FROM SID OF [facility] WHO HAS RECEIVED REFERRAL AND IS SUBMITTING TO INSURANCE FOR AUTHORIZATION FOR REHAB SERVICES. CM WAITING ADMISSION DETERMINATION FROM THE [facility]; [facility] HAS SUBMITTED TO PT'S INSURANCE COMPANY FOR AUTHORIZATION FOR REHAB SERVICES. Freddy Sotomayor, CASE MANAGEMENT DCP- Discharge Planning Updated by [id number]: Freddy Sotomayor on 08/28/18 4:[address] Patient Name: NATIVIDAD QUEZADA Encounter No: [id number] : 1935 Primary Insurance: [employer] [facility] Anticipated DC Date: 08-29-2018 Planned Disposition: Inpatient Rehab External Planned Provider: [facility] INPATIENT REHAB DCP follow-up note: CM RECEIVED REHAB ORDER, MET WITH PT IN ROOM TO DISCUSS ORDER, DISCHARGE PLANNING AND NEEDS. CM DISCUSSED AVAILABILITY OF REHAB, LOCATIONS AND PROVIDERS. CM DISCUSSED BOTH INPATIENT AND CUSTODIAL REHAB SERVICES. PT REPORTS HAVING BEEN FALLING AT HOME AND FEELS SHE NEEDS REHAB AGAIN. PT WOULD LIKE TO BE CONSIDERED FOR INPATIENT REHAB AT [place] AND DOES NOT WANT TO CONSIDER CUSTODIAL REHAB AT THIS TIME. PT DOES NOT WANT TO USE THE 20 SKILLED DAYS AND WANTS TO SAVE THEM IN CASE SHE NEEDS THEM LATER. PT REPORTS HAVING BEEN AT [place] LAST YEAR AND THEY DID A GOOD JOB WITH REHAB THEN. IMPORTANT MESSAGE FROM MEDICARE PROVIDED AND EXPLAINED. CM WAITING INPATIENT REHAB PRESCREENING AND ADMISSION DETERMINATION FROM [facility] INPATIENT REHAB. Freddy Sotomayor, CASE MANAGEMENT Appended by Freddy Sotomayor on 08/28/2018 17:30 PHYSICIANS ASSISTANT: CM RECEIVED ORDER FOR SHORT TERM REHAB CUSTODIAL OPTIONS FOR PT. CM RETURED TO PT'S ROOM, DISCUSSED CUSTODIAL REHAB OPTIONS, LOCATIONS AND PROVIDERS. PT STILL WANTS CONSIDERED FOR INPATIENT REHAB. PT WILL CONSIDER REHAB AT [facility] AND [facility] IF DECLINED BY [facility]. CHOICE SIGNED. CM FAXED REFERRALS TO [facility] AND [place] FOR REHAB CONSIDERATION SECOND CHOICE TO INPATIENT REHAB. CM WAITING INPATIENT REHAB PRESCREENING AND ADMISSION DETERMINATION FROM [facility] INPATIENT REHAB. CM WAITING ADMISSION DETERMINATIONS FROM THE [facility] AND [facility] CUSTODIAL [facility]. Freddy Sotomayor, CASE MANAGEMENT DCP- Discharge Planning Updated by [id number]: Daisy Beata on 08/27/18 5:[address] CM CONSULT RECEIVED. PATIENT IS SOMEWHAT LETHARGIC BUT EASILY AWAKEN. SHE HAS HAD THREE TEST THIS PM AND PHYSICAL THERAPY EVAL. SHE IS TIRED. SHE WAS ADMITTED W/ WEAKNESS, CONFUSION AND LETHARGY. REPORTEDLY HAS UTI, CHRONIC SYSTOLIC HEART FAILURE AND PAF. RECENT HOSPITALIZATION ON ACUTE REHAB AT [facility]. SHE WAS DISCHARGED TO HOME WITH [employer] 07/11/2018 FROM ACUTE REHAB. PATIENT HAD ROLLATOR W/ SEAT AND HAND BRAKES. NURSE , RENEE, STATES HER FRIENDS AND ?? POA WERE TALKING ABOUT A DIFFERENT PLAN AT DISCHARGE. NO ONE AT THE BEDSIDE THIS AFTERNOON. SHE HAD CONSIDERED [facility] AND REHAB HER PREVIOUS ADMIT. CM WILL REVISIT IN AM TO DISCUSS PATIENT'S DISCHARGE PLAN. REQUEST MD ORDER FOR OT EVALUATION! DCPIA - Discharge Planning Initial Assessment Updated by [id number]: Freddy Sotomayor on 08/28/18 3:54 pm * Is the patient Alert and Oriented? Yes * How many steps to enter\exit or inside your home? NONE * PCP DR. ATKINSON * Pharmacy [facility] FOR SN[facility] MAINTENANCE MEDS * Preadmission Environment Home Alone * ADLs Independent * Equipment Elevated [place] Seat Grab Bars Rolling Walker Walker * Other Equipment NO MEDICAL EQUIPMENT PROVIDER PREFERENCE * List name and contact numbers for known caregivers / representatives who currently or will assist patient after discharge: ROMAN MARTENCER, FRIEND, * Verbal permission to speak to the caregivers and representatives has been obtained from the patient. N/A * Community resources currently utilized None * Please name any agencies selected above. [facility], PHYSICAL AND OCCUPATIONAL THERAPY * Additional services required to return to the preadmission environment? Yes * Can the patient safely return to the preadmission environment? Yes * Has this patient been hospitalized within the prior 30 days at any hospital? Yes Coverage Notice Reviewer: [id number] Maura Sotomayor Notice Issued Date-Time: 08/28/2018 13:30 Notice Type: IM Discharge Notice Notice Delivered To: Patient Relationship to Patient: Motel Operator Name: Delivery Method: HAND - Hand Delivered Ruth Days: Prior Verbal Notification: Recipient Understood Notice: Yes Recipient Signature: Yes Med Rec Note Co-signed by Attending: Coverage Notice Comment: Reviewer: [id number] Maura Sotomayor Notice Issued Date-Time: 08/28/2018 17:00 Notice Type: Patient Choice Letter Notice Delivered To: Patient Relationship to Patient: Motel Operator Name: Delivery Method: HAND - Hand Delivered Ruth Days: Prior Verbal Notification: Recipient Understood Notice: Yes Recipient Signature: Yes Med Rec Note Co-signed by Attending: Coverage Notice Comment: [facility] [facility] IF DECLINED BY IP REHAB Last DP export: 08/29/18 12:29 p Patient Name: NATIVIDAD QUEZADA Page 20101 at 1116 All edits/amendments must be made on the electronic document DICTATION DATE: 08/30/181115 SURVEYING OR SPATIAL SCIENCE TECHNICIAN: KENNY 08/30/181115 RPT#: [id number] DC DATE: STATUS: ADM IN [facility] [address] [place] [address] END OF REPORT
[2018-08-30 11:55] VITALS: BP 109/61
--- NOTE | 2018-08-30 13:42 | MORECARE ---
CASE MANAGEMENT DISCHARGE SUMMARY PATIENT: NATIVIDAD QUEZADA UNIT: [id number] ADM DATE: 08/26/18 AGE: 83 : 35 SEX: F ROOM/BED: D.0336 AUTHOR: KOFFI CONDE PHYSICIAN: REFERRING PHYSICIAN: JENARO ATKINSON DO DATE OF SERVICE: 08/30/18 Discharge Plan Patient Name: NATIVIDAD QUEZADA Facility: [facility]:[place] : 1935 Planned Disposition: Snf Facility Anticipated Discharge Date: 08/29/18 Discharge Date: 08/30/2018 Expected LOS: 3 Initial Reviewer: MADI Initial Review Date: 08/28/2018 Generated: 08/30/18 2:42 pm Comments DCP- Discharge Planning Updated by [id number]: Freddy Sotomayor on 08/30/18 12:[address] Patient Name: NATIVIDAD QUEZADA Encounter No: [id number] : 1935 Primary Insurance: [email or web address] [facility] PFFS Anticipated DC Date: 08-29-2018 Planned Disposition: Snf Facility External Planned Provider: [facility] OR [facility], MEDICARE REHAB BED Discharge Planning Comments: CM FAXED UPDATES TO SID AT [facility], AND MARYJO AT [facility], . CM WAITING ADMISSION DETERMINATION FROM THE [facility] HAS SUBMITTED TO PT'S INSURANCE COMPANY FOR AUTHORIZATION FOR REHAB SERVICES. Freddy Sotomayor CASE MANAGEMENT Appended by Freddy Sotomayor on 08/30/2018 13:35 EQUIPMENT SERVICE LEAD: CM RECEIVED CALL FROM SID AT [facility] AND REHAB WHO ADVISED THAT THEY WILL ACCEPT PT FOR REHAB AT DISCHARGE. PATIENT NOTIFIED AND IN AGREEMENT WITH DISCHARGE TO REHAB AT [facility]. FOR DISCHARGE TO [facility], FAX DISCHARGE INFORMATION TO [facility] AT [phone]. NURSE REPORT TO BE CALLED TO [facility] AT [phone]. [facility] TO ARRANGE VAN TRANSPORTATION. SHELIA MERRITT DCP- Discharge Planning Updated by [id number]: Freddy Sotomayor on 08/29/18 12:[address] Patient Name: NATIVIDAD QUEZADA Admission Status: ER Accout number: [id number] Admission Date: 08-26-2018 : 1935 Admission Diagnosis: Attending: Jenaro Atkinson Current LOS: 3 Anticipated DC Date: 08-29-2018 Planned Disposition: Snf Facility Primary Insurance: [employer] [facility] PFFS PLANNED EXTERNAL PROVIDER: [facility] OR [facility], MEDICARE REHAB BED Discharge Planning Comments: CM RECEIVED REQUEST TO MEET WITH PT AND YARSANISM MEMBERS IN ROOM. PT INFORMED CM THAT IT IS OK TO DISCUSS HER CARE WITH THE YARSANISM THEY ARE ASSISTING HER WITH DISCHARGE PLANNING. YARSANISM MEMBERS INFORMED CM THAT PT IS PROBABLY NOT LOOKING AT GOING BACK HOME AND IS LOOKING MORE INTO BATH DESIGN SALES CONSULTANT NURSING CARE AT THE LONG TERM. THEY UNDERSTAND THIS TAKES FINANCIAL ARRANGEMENTS AND ARE GOING TO BE ASSISTING PT NEEDED WITH THE ARRANGEMENTS. PT REPORTS THIS TO BE WHAT SHE WANTS. PT STILL IN AGREEMENT WITH PLACEMENT AT [facility] OR [facility] FOR REHAB AND WILL DISCUSS BATH DESIGN SALES CONSULTANT CARE WITH FACILITY STAFF AT A LATER TIME. PT NOR YARSANISM MEMBERS HAD FURHTER QUESTIONS. CM SPOKE TO KAROLYN OF INPATIENT REHAB AND NOTIFIED OF ABOVE INFORMATION; KAROLYN OF INPATIENT REHAB SUGGESTED THAT FDC WOULD BE MORE APPROPRIATE AND IN LINE WITH PT'S LONGTERM CARE GOALS. CM SPOKE TO MARYJO OF [facility], THEY HAVE RECEIVED REFERRAL AND ARE SCREENING FOR ADMISSION. CM RECEIVED CALL FROM SID OF [facility] WHO HAS RECEIVED REFERRAL AND IS SUBMITTING TO INSURANCE FOR AUTHORIZATION FOR REHAB SERVICES. CM WAITING ADMISSION DETERMINATION FROM [facility]; [facility] HAS SUBMITTED TO PT'S INSURANCE COMPANY FOR AUTHORIZATION FOR REHAB SERVICES. Freddy Sotomayor, CASE MANAGEMENT DCP- Discharge Planning Updated by [id number]: Freddy Sotomayor on 08/28/18 4:[address] Patient Name: NTAIVIDAD QUEZADA Encounter No: [id number] : 1935 Primary Insurance: [email or web address] [facility] PF Anticipated DC Date: 08-29-2018 Planned Disposition: Inpatient Rehab External Planned Provider: [facility] INPATIENT REH[facility] DCP follow-up note: CM RECEIVED REHAB ORDER, MET WITH PT IN ROOM TO DISCUSS ORDER, DISCHARGE PLANNING AND NEEDS. CM DISCUSSED AVAILABILITY OF REHAB, LOCATIONS AND PROVIDERS. CM DISCUSSED BOTH INPATIENT AND FDC REHAB SERVICES. PT REPORTS HAVING BEEN FALLING AT HOME AND FEELS SHE NEEDS REHAB AGAIN. PT WOULD LIKE TO BE CONSIDERED FOR INPATIENT REHAB AT [place] AND DOES NOT WANT TO CONSIDER [facility]DC REHAB AT THIS TIME. PT DOES NOT WANT TO USE THE 20 SKILLED DAYS AND WANTS TO SAVE THEM IN CASE SHE NEEDS THEM LATER. PT REPORTS HAVING BEEN AT [facility] LAST YEAR AND THEY DID A GOOD JOB WITH REHAB THEN. IMPORTANT MESSAGE FROM MEDICARE PROVIDED AND EXPLAINED. CM WAITING INPATIENT REHAB PRESCREENING AND ADMISSION DETERMINATION FROM [facility] INPATIENT REH[facility]. Freddy Sotomayor, CASE MANAGEMENT Appended by Freddy Sotomayor on 08/28/2018 17:30 EQUIPMENT SERVICE LEAD: CM RECEIVED ORDER FOR SHORT TERM REHAB FDC OPTIONS FOR PT. CM RETURED TO PT'S ROOM, DISCUSSED FDC REHAB OPTIONS, LOCATIONS AND PROVIDERS. PT STILL WANTS CONSIDERED FOR INPATIENT REHAB. PT WILL CONSIDER REHAB AT [facility] AND [facility] IF DECLINED BY [facility]. CHOICE SIGNED. CM FAXED REFERRALS TO [facility] AND [facility] FOR REHAB CONSIDERATION SECOND CHOICE TO INPATIENT REHAB. CM WAITING INPATIENT REHAB PRESCREENING AND ADMISSION DETERMINATION FROM [facility] INPATIENT REHAB. CM WAITING ADMISSION DETERMINATIONS FROM [facility] AND [facility] FDC [facility]. Freddy Sotomayor, CASE MANAGEMENT DCP- Discharge Planning Updated by [id number]: Daisy Cota on 08/27/18 5:[address] CM CONSULT RECEIVED. PATIENT IS SOMEWHAT LETHARGIC BUT EASILY AWAKEN. SHE HAS HAD THREE TEST THIS PM AND PHYSICAL THERAPY EVAL. SHE IS TIRED. SHE WAS ADMITTED W/ WEAKNESS, CONFUSION AND LETHARGY. REPORTEDLY HAS UTI, CHRONIC SYSTOLIC HEART FAILURE AND PAF. RECENT HOSPITALIZATION ON ACUTE REHAB AT [facility]. SHE WAS DISCHARGED TO HOME WITH [employer] [facility] 07/11/2018 FROM ACUTE REHAB. PATIENT HAD ROLLATOR W/ SEAT AND HAND BRAKES. NURSE , RENEE, STATES HER FRIENDS AND ?? POA WERE TALKING ABOUT A DIFFERENT PLAN AT DISCHARGE. NO ONE AT THE BEDSIDE THIS AFTERNOON. SHE HAD CONSIDERED [facility] AND REHAB HER PREVIOUS ADMIT. CM WILL REVISIT IN AM TO DISCUSS PATIENT'S DISCHARGE PLAN. REQUEST MD ORDER FOR OT EVALUATION! DCPIA - Discharge Planning Initial Assessment Updated by [id number]: Freddy Sotomayor on 08/28/18 3:54 pm * Is the patient Alert and Oriented? Yes * How many steps to enter\exit or inside your home? NONE * PCP DR. ATKINSON * Pharmacy [facility] OR [facility] FOR LONGTERM MAINTENANCE MEDS * Preadmission Environment Home Alone * ADLs Independent * Equipment Elevated [place] Seat Grab Bars Rolling Walker Walker * Other Equipment NO MEDICAL EQUIPMENT PROVIDER PREFERENCE * List name and contact numbers for known caregivers / representatives who currently or will assist patient after discharge: ROMAN ELY, FRIEND, * Verbal permission to speak to the caregivers and representatives has been obtained from the patient. N/A * Community resources currently utilized None * Please name any agencies selected above. [facility], PHYSICAL AND OCCUPATIONAL THERAPY * Additional services required to return to the preadmission environment? Yes * Can the patient safely return to the preadmission environment? Yes * Has this patient been hospitalized within the prior 30 days at any hospital? Yes Coverage Notice Reviewer: [id number] Maura Sotomayor Notice Issued Date-Time: 08/28/2018 13:30 Notice Type: IM Discharge Notice Notice Delivered To: Patient Relationship to Patient: Operating System Programmer Name: Delivery Method: HAND - Hand Delivered Ruth Days: Prior Verbal Notification: Recipient Understood Notice: Yes Recipient Signature: Yes Med Rec Note Co-signed by Attending: Coverage Notice Comment: Reviewer: [id number] Sotomayor Notice Issued Date-Time: 08/28/2018 17:00 Notice Type: Patient Choice Letter Notice Delivered To: Patient Relationship to Patient: Operating System Programmer Name: Delivery Method: HAND - Hand Delivered Ruth Days: Prior Verbal Notification: Recipient Understood Notice: Yes Recipient Signature: Yes Med Rec Note Co-signed by Attending: Coverage Notice Comment: [facility] [facility] IF DECLINED BY IP REHAB Last DP export: 08/30/18 10:16 a Patient Name: NATIVIDAD QUEZADA Page 14172 at 1342 All edits/amendments must be made on the electronic document DICTATION DATE: 08/30/18 1342 DIRECTOR OF ESTATE: KENNY 08/30/18 1342 RPT#: [id number] DC DATE:08/30/18 STATUS: DIS IN [facility] [address] [place] [address] END OF REPORT
[2018-08-30] MEDS ORDERED: MACROBID100 MG PO (15:46)
[2018-08-30 15:55] VITALS: BP 129/73
--- NOTE | 2018-08-30 17:24 | MORECARE ---
CASE MANAGEMENT DISCHARGE SUMMARY PATIENT: NATIVIDAD QUEZADA UNIT: [id number] ADM DATE: 08/26/18 AGE: 83 : 35 SEX: F ROOM/BED: D.8300 AUTHOR: KOFFI CONDE PHYSICIAN: REFERRING PHYSICIAN: JENARO ATKINSON DO DATE OF SERVICE: 08/30/18 Discharge Plan Patient Name: NATIVIDAD QUEZADA Facility: [facility]:[place] : 1935 Planned Disposition: Nursing Home Facility Anticipated Discharge Date: 08/30/18 Discharge Date: Expected LOS: 4 Initial Reviewer: [id number] Initial Review Date: 08/28/2018 Generated: 08/30/18 6:24 pm Comments DCP- Discharge Planning Updated by [id number]: Yasmin Kim on 08/30/18 4:[address] Patient Name: NATIVIDAD QUEZADA Encounter No: [id number] : 1935 Primary Insurance: [employer] [facility] Anticipated DC Date: 08-29-2018 Planned Disposition: Nursing Home Facility External Planned Provider: [facility] OR [facility], MEDICARE REHAB BED Discharge Planning Comments: ZAK FAXED UPDATES TO SID AT [facility], AND MARYJO AT [facility], . CM WAITING ADMISSION DETERMINATION FROM THE [facility] HAS SUBMITTED TO PT'S INSURANCE COMPANY FOR AUTHORIZATION FOR REHAB SERVICES. SHELIA Merritt MANAGEMENT Appended by Yasmin Kim on 08/30/2018 13:35 SPRAY UNIT FEEDER: CM RECEIVED CALL FROM SID AT [facility] WHO ADVISED THAT THEY WILL ACCEPT PT FOR REHAB AT DISCHARGE. PATIENT NOTIFIED AND IN AGREEMENT WITH DISCHARGE TO REHAB AT [facility]. FOR DISCHARGE TO [facility], FAX DISCHARGE INFORMATION TO [facility] AT [phone]. NURSE REPORT TO BE CALLED TO [facility] AT [phone]. [facility] TO ARRANGE VAN TRANSPORTATION. YASMIN KIM CASE MANAGEMENT Appended by Yasmin Kim on 08/30/2018 17:19 SPRAY UNIT FEEDER: CM RECEIVED ORDER FOR DISCHARGE TO [facility]. CM FAXED DISCHARGE INFORMATION TO [facility] AT [phone]. NURSE REPORT TO BE CALLED TO [facility] AT [phone]. [facility] TO ARRANGE VAN TRANSPORTATION BETWEEN 1700 AND 1730 HOURS TODAY. SHELIA MERRITT DCP- Discharge Planning Updated by [id number]: Yasmin Kim on 08/29/18 12:[address] Patient Name: NATIVIDAD QUEZADA Admission Status: ER Accout number: [id number] Admission Date: 08-26-2018 : 1935 Admission Diagnosis: Attending: Jenaro Atkinson Current LOS: 3 Anticipated DC Date: 08-29-2018 Planned Disposition: Nursing Home Facility Primary Insurance: [employer] [facility] PLANNED EXTERNAL PROVIDER: [facility] OR [facility], MEDICARE REHAB BED Discharge Planning Comments: CM RECEIVED REQUEST TO MEET WITH PT AND [facility] IN ROOM. PT INFORMED CM THAT IT IS OK TO DISCUSS HER CARE WITH THE [facility] THEY ARE ASSISTING HER WITH DISCHARGE PLANNING. [facility] INFORMED CM THAT PT IS PROBABLY NOT LOOKING AT GOING BACK HOME AND IS LOOKING MORE INTO [facility] AT THE [facility]. THEY UNDERSTAND THIS TAKES FINANCIAL ARRANGEMENTS AND ARE GOING TO BE ASSISTING PT NEEDED WITH THE ARRANGEMENTS. PT REPORTS THIS TO BE WHAT SHE WANTS. PT STILL IN AGREEMENT WITH PLACEMENT AT THE [facility] OR [facility] FOR REHAB AND WILL DISCUSS [facility] WITH FACILITY STAFF AT A LATER TIME. PT NOR [facility]ERS HAD FURHTER QUESTIONS. CM SPOKE TO KAROLYN OF INPATIENT REHAB AND NOTIFIED OF ABOVE INFORMATION; KAROLYN OF INPATIENT REHAB SUGGESTED THAT GROUP HOME WOULD BE MORE APPROPRIATE AND IN LINE WITH PT'S [facility] CARE GOALS. CM SPOKE TO MARYJO OF THE [facility], THEY HAVE RECEIVED REFERRAL AND ARE SCREENING FOR ADMISSION. CM RECEIVED CALL FROM SID OF [facility] WHO HAS RECEIVED REFERRAL AND IS SUBMITTING TO INSURANCE FOR AUTHORIZATION FOR REHAB SERVICES. CM WAITING ADMISSION DETERMINATION FROM THE [facility] HAS SUBMITTED TO PT'S INSURANCE COMPANY FOR AUTHORIZATION FOR REHAB SERVICES. SHELIA Merritt DCP- Discharge Planning Updated by [id number]: Yasmin Kim on 08/28/18 4:[address] Patient Name: NATIVIDAD QUEZADA Encounter No: [id number] : 1935 Primary Insurance: [employer] [facility] Anticipated DC Date: 08-29-2018 Planned Disposition: Inpatient Rehab External Planned Provider: [facility] INPATIENT REHAB DCP follow-up note: CM RECEIVED REHAB ORDER, MET WITH PT IN ROOM TO DISCUSS ORDER, DISCHARGE PLANNING AND NEEDS. CM DISCUSSED AVAILABILITY OF REHAB, LOCATIONS AND PROVIDERS. CM DISCUSSED BOTH INPATIENT AND GROUP HOME REHAB SERVICES. PT REPORTS HAVING BEEN FALLING AT HOME AND FEELS SHE NEEDS REHAB AGAIN. PT WOULD LIKE TO BE CONSIDERED FOR INPATIENT REHAB AT [place] AND DOES NOT WANT TO CONSIDER GROUP HOME REHAB AT THIS TIME. PT DOES NOT WANT TO USE THE 20 SKILLED DAYS AND WANTS TO SAVE THEM IN CASE SHE NEEDS THEM LATER. PT REPORTS HAVING BEEN AT [place] LAST YEAR AND THEY DID A GOOD JOB WITH REHAB THEN. IMPORTANT MESSAGE FROM MEDICARE PROVIDED AND EXPLAINED. CM WAITING INPATIENT REHAB PRESCREENING AND ADMISSION DETERMINATION FROM [facility] INPATIENT REHAB. Yasmin Kim, CASE MANAGEMENT Appended by Yasmin Kim on 08/28/2018 17:30 SPRAY UNIT FEEDER: CM RECEIVED ORDER FOR SHORT TERM REHAB GROUP HOME OPTIONS FOR PT. CM RETURED TO PT'S ROOM, DISCUSSED GROUP HOME REHAB OPTIONS, LOCATIONS AND PROVIDERS. PT STILL WANTS CONSIDERED FOR INPATIENT REHAB. PT WILL CONSIDER REHAB AT [facility] AND [facility] IF DECLINED BY [facility]. CHOICE SIGNED. CM FAXED REFERRALS TO THE [facility] FOR REHAB CONSIDERATION SECOND CHOICE TO INPATIENT REHAB. CM WAITING INPATIENT REHAB PRESCREENING AND ADMISSION DETERMINATION FROM [facility] INPATIENT RE[facility]. CM WAITING [facility]. Yasmin Kim, CASE MANAGEMENT DCP- Discharge Planning Updated by [id number]: Daisy Cota on 08/27/18 5:[address] CM CONSULT RECEIVED. PATIENT IS SOMEWHAT LETHARGIC BUT EASILY AWAKEN. SHE HAS HAD THREE TEST THIS PM AND PHYSICAL THERAPY EVAL. SHE IS TIRED. SHE WAS ADMITTED W/ WEAKNESS, CONFUSION AND LETHARGY. REPORTEDLY HAS UTI, CHRONIC SYSTOLIC HEART FAILURE AND PAF. RECENT HOSPITALIZATION ON ACUTE REHAB AT [facility]. SHE WAS DISCHARGED TO HOME WITH [facility] 07/11/2018 FROM ACUTE REHAB. PATIENT HAD ROLLATOR W/ SEAT AND HAND BRAKES. NURSE , RENEE, STATES HER FRIENDS AND ?? POA WERE TALKING ABOUT A DIFFERENT PLAN AT DISCHARGE. NO ONE AT THE BEDSIDE THIS AFTERNOON. SHE HAD CONSIDERED [facility] AND REHAB HER PREVIOUS ADMIT. CM WILL REVISIT IN AM TO DISCUSS PATIENT'S DISCHARGE PLAN. REQUEST MD ORDER FOR OT EVALUATION! DCPIA - Discharge Planning Initial Assessment Updated by [id number]: Yasmin iKm on 08/28/18 3:54 pm * Is the patient Alert and Oriented? Yes * How many steps to enter\exit or inside your home? NONE * PCP DR. ATKINSON * Pharmacy [facility] MAIL ORDER FOR [facility] [facility] * Preadmission Environment Home Alone * ADLs Independent * Equipment Elevated [place] Seat Grab Bars Rolling Walker Walker * Other Equipment NO MEDICAL EQUIPMENT PROVIDER PREFERENCE * List name and contact numbers for known caregivers / representatives who currently or will assist patient after discharge: ROMAN SOLIS, FRIEND, * Verbal permission to speak to the caregivers and representatives has been obtained from the patient. N/A * Community resources currently utilized None * Please name any agencies selected above. [facility], PHYSICAL [facility] OCCUPATIONAL THERAPY * Additional services required to return to the preadmission environment? Yes * Can the patient safely return to the preadmission environment? Yes * Has this patient been hospitalized within the prior 30 days at any hospital? Yes Coverage Notice Reviewer: [id number] Maura Kim Notice Issued Date-Time: 08/28/2018 13:30 Notice Type: IM Discharge Notice Notice Delivered To: Patient Relationship to Patient: Transitional Care Liaison Name: Delivery Method: HAND - Hand Delivered Ruth Days: Prior Verbal Notification: Recipient Understood Notice: Yes Recipient Signature: Yes Med Rec Note Co-signed by Attending: Coverage Notice Comment: Reviewer: [email or web address] Maura Kim Notice Issued Date-Time: 08/28/2018 17:00 Notice Type: Patient Choice Letter Notice Delivered To: Patient Relationship to Patient: Transitional Care Liaison Name: Delivery Method: HAND - Hand Delivered Ruth Days: Prior Verbal Notification: Recipient Understood Notice: Yes Recipient Signature: Yes Med Rec Note Co-signed by Attending: Coverage Notice Comment: [facility] IF DECLINED BY IP REHAB Last DP export: 08/30/18 12:42 p Patient Name: NATIVIDAD QUEZADA Page [id number] at [id number] All edits/amendments must be made on the electronic document DICTATION DATE: 08/30/181722 TOLL LINE REPAIRER: KENNY 08/30/181722 RPT#: [id number] DC DATE: STATUS: ADM IN [facility] [address] [place] [address] END OF REPORT
== END 2018-08-30 17:43 | DRG 291 ==
LOC: D.ER 19:50 → D.M2 21:39
PROVIDERS: Family Medicine; ADMIT Family Medicine
DX: I11.0 Hypertensive heart disease with heart failure (principal); J18.9 Pneumonia, unspecified organism; N39.0 Urinary tract infection, site not specified; G93.40 Encephalopathy, unspecified; I50.23 Acute on chronic systolic (congestive) heart failure; I25.10 Atherosclerotic heart disease of native coronary artery without angina pectoris; I48.0 Paroxysmal atrial fibrillation; I34.0 Nonrheumatic mitral (valve) insufficiency; Z95.0 Presence of cardiac pacemaker; E87.6 Hypokalemia; E03.9 Hypothyroidism, unspecified